=== PATIENT | male | born 1945 | race Caucasian/White ===

== ENCOUNTER 2024-08-08 21:31 | Emergency (ER) | payer MEDICARE, OTHER, SELFPAY ==
--- NOTE | 2024-08-08 | ECG_ITS ---
Test Reason : AMS Blood Pressure : */* mmHG Vent. Rate : 80 BPM Atrial Rate : 80 BPM P-R Int : 176 ms QRS Dur : 106 ms QT Int : 386 ms P-R-T Axes : 24 -41 24 degrees QTcB Int : 445 ms Sinus rhythm with occasional Premature ventricular complexes Left axis deviation Minimal voltage criteria for LVH, may be normal variant ( [place] product ) Abnormal ECG No previous ECGs available Referred By: Generic ED Physician Electronically Signed By: OLIVA CAMPO
--- NOTE | ~2024-08-08 | XR_ITS ---
CLINICAL HISTORY: trauma 1 view chest x-ray Comparison: None Findings: Mild bilateral atelectasis. No significant pleural effusion or pneumothorax. Heart size is normal. No acute fracture. IMPRESSION: Mild bilateral atelectasis. This document has been electronically signed by: Edwar Serrano MD on 08/08/2024 23:07:15
--- NOTE | ~2024-08-08 | CT_ITS ---
CLINICAL HISTORY: trauma CT head without contrast Comparison: None Findings: Scattered subcortical and periventricular hypoattenuation, likely in keeping with chronic small vessel ischemic disease. Parenchymal volume loss with compensatory prominence of the ventricles and CSF spaces. No acute territorial infarction, intracranial hemorrhage, midline shift or hydrocephalus. Mineralization in the basal ganglia noted. The visualized paranasal sinuses and mastoid air cells are normal. The orbits are within normal limits. No skull fracture. IMPRESSION: 1. No acute intracranial findings. 2. Additional findings as described. This document has been electronically signed by: Edwar Serrano MD on 08/08/2024 23:34:26
--- NOTE | ~2024-08-08 | CT_ITS ---
CLINICAL HISTORY: trauma CT cervical spine without contrast Comparison: None Findings: Exaggeration of the cervical lordosis. Multilevel spondylosis with osteophytosis, uncovertebral hypertrophy, facet arthropathy and degenerative disc disease. Emphysema. Diffuse spinal canal narrowing for example moderate at C4-C5 with severe bilateral foraminal stenoses. No acute fractures or dislocations. No cervical fluid collections or masses. Lung apices are clear. IMPRESSION: No acute findings. Additional findings as described. This document has been electronically signed by: Edwar Serrano MD on 08/08/2024 23:36:38
[2024-08-08 21:39] VITALS: BP 107/68; BP 133/81; PULSE 81; PULSE 82; RESP 16; TEMP 36.7; O2SAT 93; O2SAT 95; BMI 25.5
[2024-08-08 22:17] LABS: MANUAL DIFF FLAG NO
[2024-08-08 22:18] LABS: Basophils Absolute Auto 0.1 X10*3/uL (0.0-0.2); Basophils Percent Auto 0.6 % (0-2); Eosinophils Percent Auto 0.4 % (0-4); Hematocrit 43.6 % (42.0-52.0); Hemoglobin 15.1 g/dl (14.0-18.0); Imm Gran Abs Auto 0.05 X10*3/uL (0.00-0.03); Imm Gran Pct Auto 0.5 % (0.0-0.4); Lymphocytes Absolute Auto 2.5 X10*3/uL (1.2-4.9); Mean Corpuscular HGB Conc 34.6 g/dl (31.0-36.0); Mean Corpuscular Hemoglobin 31.7 pg (27.0-33.0); Mean Corpuscular Volume 91.4 fL (80.0-98.0); Mean Platelet Volume 11.9 fL (9.4-12.4); Monocytes Absolute Auto 0.9 X10*3/uL (0.1-1.2); Monocytes Percent Auto 8.7 % (2-11); Neutrophils Absolute Auto 7.1 x10*3/uL (2.0-8.3); Neutrophils Percent Auto 66.8 % (45-73); Platelet Count 153 X10*3/uL (160-400); Red Blood Count 4.77 X10*6/uL (4.60-5.80); Red Cell Distribution Width 13.2 % (11.0-16.0); White Blood Count 10.6 X10*3/uL (4.8-10.8)
--- NOTE | 2024-08-08 22:30 | PC.NURSE ---
patient's , daughter and son at bedside. report pt has had increased falls x couple weeks, multiple this week. after the falls pt did not report any concerns and was not evaluated. reports couple weeks ago patients psychiatrist took pt off memantine and trazodone and decreased doses of mirtazipine and risperidone as they were concerned for over medication. reports patient has had urinary incontinence and increased sleepiness today, they believe patients speech is slurred however not noted by this RN. no facial droop/focal deficits noted. Chikis FAN made aware and to bedside for eval.
[2024-08-08 22:31] LABS: Alanine Aminotransferase 8 U/L (0-40); Albumin Level 3.9 g/dL (3.5-5.0); Alkaline Phosphatase 77 U/L (39-117); Anion Gap 15 (12-20); Aspartate Amino Transferase 18 U/L (5-37); Blood Urea Nitrogen 21 mg/dL (9-16); Calcium 9.2 mg/dL (8.4-10.2); Carbon Dioxide 24 mmol/L (22-29); Chloride 108 mmol/L (96-108); Creatinine Clr Calc Pharmacy 65.7; Estimated Glomerular Filt Rate > 60; Glucose Random 115 mg/dL (60-115); Sodium 143 mmol/L (135-145); Total Protein 7.1 g/dL (6.5-8.0)
[2024-08-08 22:41] LABS: Troponin-I High Sensitivity < 2.7 ng/L (<3.5-35.0)
[2024-08-08 22:55] LABS: Influenza A PCR NEGATIVE (Negative); Influenza B PCR NEGATIVE (Negative); Resp Syncy Virus RNA Qual PCR NEGATIVE (Negative); SARS COV2 PCR INHOUSE NEGATIVE (Negative)
[2024-08-08 23:18] VITALS: BP 140/77; PULSE 84; RESP 16; TEMP 36.2; O2SAT 96
--- NOTE | 2024-08-08 23:19 | PC.NURSE ---
straight cath and rectal temp obtained per PA verbal order, pt in agreement and tolerated both well. ua sample sent to lab.
[2024-08-08 23:21] LABS: Appearance Urine Clear; Color Urine Dark Yellow; Glucose Urine UA Negative (Negative); Leukocyte Esterase Urine Negative (Negative); Nitrite Urine Negative (Negative); PH 5.5 (5.0-9.0); Specific Gravity - Urine >= 1.030 (1.005-1.025); UMIC TRIGGER UACC YES; Urine Blood Small (1+) (Negative); Urine Ketones Trace mg/dL (Negative); Urine Protein Trace mg/dL (Neg-Trace)
[2024-08-08 23:32] LABS: Bacteria Urine None Seen (None Seen); Squamous Epithelial Cell Urine 0-2 /HPF (0-2); WBC Urine 0-5 /HPF (0-5)
--- NOTE | 2024-08-09 01:39 | PC.NURSE ---
pt found sitting at the edge of the bed yelling for his . pt moved into hospital bed with bed alarm on for safety. verbal reassurance and redirectable. warm blanket given. currently sleeping. call pizarro within reach.
--- NOTE | 2024-08-09 03:59 | ED.GENADULT ---
HPI - General Adult General Chief complaint: Altered Mental Status Stated complaint: ALTERED MENTAL , DEMENTIA Time Seen by Provider: 08/08/24 22:35 Source: family Limitations: other (Dementia) History of Present Illness ED Provider: Ella Horan PA-C HPI narrative: 78-year-old male with a history of dementia, underlying gait instability using a walker to ambulate at baseline, presents with lethargy. Per the family, who are at bedside, the patient has become increasingly confused over the past 2 weeks. He is exhibiting odd behaviors such as ?thinking his 's sweater is their cat?. The patient has started to urinate and random spots in the bathroom; the shower, the trash can etc.. His appetite has decreased, it takes him a considerable amount of time to consume a meal. He has sustained multiple falls. Over the weekend, the patient has become profoundly lethargic. The family denies that the patient has been sick recently, no cough or cold symptoms, fever, nausea vomiting diarrhea. The patient has no pain related complaints in regard to his falls. He has not been medically assessed for his most recent fall; the patient fell this weekend, it was unwitnessed, unclear if he struck his head. The patient lives in his own home with his . Related Data Allergies Allergy/AdvReac Type Severity Reaction Status Date / Time typhoid injection Allergy Unknown Unknown Uncoded 08/08/24 21:42 Review of Systems Review of Systems: Unable to obtain secondary to dementia Yes all other systems are reviewed and are negative PMFSH Past Medical History Attestation statement: The following information was validated with the patient. Social History Social History Smoked in Last 30 Days: No Use of substances other than those prescribed or required for medical reasons: No Advance Directives: No Advance Directives Information Provided: No Do you have a plan to hurt others: No Plan Physical Exam ED Vital Signs: Vital Signs - 24 hr 08/08/24 21:39 08/08/24 23:18 08/09/24 06:00 Temperature 98.1 F 97.2 F 97.6 F Pulse Rate 81 84 84 Respiratory Rate 16 16 16 Blood Pressure 107/68 140/77 H 135/75 Pulse Oximetry 93 96 93 Oxygen Delivery Method Room Air Room Air Room Air BMI result Body Mass Index 25.5 Const Other: Drowsy, easily woken with verbal stimuli Orientation/consciousness: oriented to person and oriented to place Resp Effort & Inspection: normal respiratory effort Cardio Other: Normal peripheral perfusion Skin Other: Warm dry no rash Neuro Other: Overall the patient was alert and oriented, he can not give me the exact date but he knows that it is 2024 General: oriented to person, oriented to place, no focal motor deficits and CN's II-XI intact bilaterally Psych Other: Cooperative Course Course Course Narrative: 08/09/24-- 0750-- physician observation continued. Vital signs stable. Labs reviewed. Pending psychiatry eval, PT and case management Medical Decision Making Medical Decision Making [facility] Narrative: 78-year-old male with a history of dementia, underlying gait instability using a walker to ambulate at baseline, presents with lethargy. Per the family, who are at bedside, the patient has become increasingly confused over the past 2 weeks. He is exhibiting odd behaviors such as ?thinking his 's sweater is their cat?. The patient has started to urinate and random spots in the bathroom; the shower, the trash can etc.. His appetite has decreased, it takes him a considerable amount of time to consume a meal. He has sustained multiple falls. Over the weekend, the patient has become profoundly lethargic. The family denies that the patient has been sick recently, no cough or cold symptoms, fever, nausea vomiting diarrhea. The patient has no pain related complaints in regard to his falls. He has not been medically assessed for his most recent fall; the patient fell this weekend, it was unwitnessed, unclear if he struck his head. The patient lives in his own home with his . Problem: Dementia History: Per patient's family I have considered the following differential diagnoses: Viral syndrome, UTI, intracranial hemorrhage, cervical spine injury, rib fracture, pneumonia, it failure to thrive, end-stage dementia Plan: The patient's symptoms are very nonspecific, he has not had underlying illness per the family. We will be screening basic labs, viral panel, urinalysis. Given an unwitnessed fall, I will be scanning his head and neck, at 1 point the patient was complaining of chest wall pain after his most recent fall, we will obtain a chest x-ray. Given the rapid decline over the past few weeks, the patient could be approaching end-stage dementia. If his medical assessment is negative, he will be held for case management, physical therapy, and a [facility] psychiatric evaluation. The patient's family is in agreement and verbalized understanding. I have independently reviewed the following tests: Labs: No leukocytosis, not anemic, no electrolyte abnormality, viral panel negative, urine negative CT brain: Findings: Scattered subcortical and periventricular hypoattenuation, likely in keeping with chronic small vessel ischemic disease. Parenchymal volume loss with compensatory prominence of the ventricles and CSF spaces. No acute territorial infarction, intracranial hemorrhage, midline shift or hydrocephalus. Mineralization in the basal ganglia noted. The visualized paranasal sinuses and mastoid air cells are normal. The orbits are within normal limits. No skull fracture. IMPRESSION: 1. No acute intracranial findings. 2. Additional findings as described. CT cervical spine: indings: Exaggeration of the cervical lordosis. Multilevel spondylosis with osteophytosis, uncovertebral hypertrophy, facet arthropathy and degenerative disc disease. Emphysema. Diffuse spinal canal narrowing for example moderate at C4-C5 with severe bilateral foraminal stenoses. No acute fractures or dislocations. No cervical fluid collections or masses. Lung apices are clear. IMPRESSION: No acute findings. Additional findings as described. Chest x-ray:Findings: Mild bilateral atelectasis. No significant pleural effusion or pneumothorax. Heart size is normal. No acute fracture. IMPRESSION: Mild bilateral atelectasis. This document has been electronically signed by: Edwar Serrano MD on 08/08/2024 23:07:15 Lab Data 08/08/24 22:07 08/08/24 22:07 Labs: Lab Results 08/08/24 08/08/24 Range/Units 22:07 23:14 WBC 10.6 (4.8-10.8) X10*3/uL RBC 4.77 (4.60-5.80) X10*6/uL Hgb 15.1 (14.0-18.0) g/dl Hct 43.6 (42.0-52.0) % MCV 91.4 (80.0-98.0) fL MCH 31.7 (27.0-33.0) pg MCHC 34.6 (31.0-36.0) g/dl RDW 13.2 (11.0-16.0) % Plt Count 153 L (160-400) X10*3/uL MPV 11.9 (9.4-12.4) fL Immature Gran % (Auto) 0.5 H (0.0-0.4) % Neut % (Auto) 66.8 (45-73) % Lymph % (Auto) 23.0 (20-40) % [place] % (Auto) 8.7 (2-11) % Eos % (Auto) 0.4 (0-4) % Baso % (Auto) 0.6 (0-2) % Lymph # (Auto) 2.5 (1.2-4.9) X10*3/uL [place] # (Auto) 0.9 (0.1-1.2) X10*3/uL Eos # (Auto) 0.0 (0.0-0.4) X10*3/uL Baso # (Auto) 0.1 (0.0-0.2) X10*3/uL Abs Immat Gran (auto) 0.05 H (0.00-0.03) X10*3/uL Absolute Neuts (auto) 7.1 (2.0-8.3) x10*3/uL Absolute Nucleated RBC 0.000 (0.0-0.012) X10*3/uL Nucleated RBC % (auto) 0.0 (0.0-0.2) /100WBC Sodium 143 (135-145) mmol/L Potassium 4.0 (3.3-5.1) mmol/L Chloride 108 (96-108) mmol/L Carbon Dioxide 24 (22-29) mmol/L Anion Gap 15 (12-20) BUN 21 H (9-16) mg/dL Creatinine 0.91 (0.5-1.4) mg/dL Estim Creat Clear Calc 65.7 Estimated GFR > 60 Random Glucose 115 (60-115) mg/dL Calcium 9.2 (8.4-10.2) mg/dL Total Bilirubin 1.0 (0.0-1.0) mg/dL AST 18 (5-37) U/L ALT 8 (0-40) U/L Alkaline Phosphatase 77 (39-117) U/L Troponin I High Sens < 2.7 (<3.5-35.0) ng/L Total Protein 7.1 (6.5-8.0) g/dL Albumin 3.9 (3.5-5.0) g/dL Urine Color Dark Yellow Urine Appearance Clear Urine pH 5.5 (5.0-9.0) Ur Specific [place] >= 1.030 H (1.005-1.025) Urine Protein Trace (Neg-Trace) mg/dL Urine Glucose (UA) Negative (Negative) mg/dL Urine Ketones Trace (Negative) mg/dL Urine Blood Small (1+) H (Negative) Urine Nitrite Negative (Negative) Ur Leukocyte Esterase Negative (Negative) Urine RBC 11-20 H (0-2) /HPF Urine WBC 0-5 (0-5) /HPF Ur Squamous Epith Cells 0-2 (0-2) /HPF Urine Bacteria None Seen (None Seen) Hyaline Casts 11-20 (0-2) /LPF Influenza Type A (PCR) NEGATIVE (Negative) Influenza Type B (PCR) NEGATIVE (Negative) RSV RNA Qual (PCR) NEGATIVE (Negative) SARS-CoV-2 RNA (RT-PCR) NEGATIVE (Negative) Discharge Plan Discharge Clinical Impression: Dementia, Adult failure to thrive Patient Disposition: Still a Patient Print Language: Greek
[2024-08-09 06:00] VITALS: BP 135/75; PULSE 84; RESP 16; TEMP 36.4; O2SAT 93
--- NOTE | 2024-08-09 07:02 | PC.NURSE ---
pt self removed IV
--- NOTE | 2024-08-09 10:20 | MHC.CM.ED ---
Received case management consult overnight. Patient came to the ER due to AMS. Work up appears negative. Physical therapy eval and Psych consult are pending. Met with patient and son, Sunny, to update them on what is pending. Sunny has to leave for a doctor's appointment. More family will be coming to the hospital shortly. CM will meet with patient and family again. Continue to monitor for d/c needs.
[2024-08-09 10:29] VITALS: BP 114/59; PULSE 88; RESP 16; TEMP 36.7; O2SAT 93
--- NOTE | 2024-08-09 12:08 | MHC.CM.ED ---
Met with patient, Allyson and daughter Miladys in regards to discharge planning. Due to patient's AMS, spoke to Allyson and Miladys away of patient's bedside. Allyson reports patient was diagnosed with dementia from a Neurologist on [facility] in [place]. Allyson is unable to remember provider's name PCP is Dr Varela. T/W explained physical therapy eval completed and recommended rehab. Also explained psych consult is pending at this time. Patient has Medicare and but is not service connected through the [place]. Allyson does feel it is difficult to care for patient at this time. Allyson verbalizes patient has not been inpatient in any facility in the past 30 days. T/W explained referrals can be made to all 3 acute rehab facilities but they would need to have a bed and feel patient has a Medicare approved acute rehab diagnosis. Also explained, if acute rehab was unable to offer a bed, private pay short term rehab can be looked into since Medicare will not cover SNF since patient has not been inpatient in the past 30 days. It was explained cost would be $300-600 per day with 14-30 days up front. Allyson does not feel she can afford this. custodial care was discussed. Patient and Allyson do not have the funds to privately pay for LTC. Patient receives custodial from the [facility], Social security and [facility]. T/W explained [facility] intermediate care requirements in regards to assets and looking back 5 years. Allyson and Miladys do not feel patient will qualify for [facility] intermediate care. They also are not able to privately pay. T/W explained VNA can be arranged but would only see patient a couple of times a week. T/W offered to refer out to [facility] to see if patient qualifies for any additional service. Allyson stated good luck contacting anyone there. T/W explained [facility] has [facility] liaison on site. Allyson agreeable to referral. Patient, Allyson, and Miladys will wait until psych consult before final d/c plan is made. Continue to monitor for d/c needs.
--- NOTE | 2024-08-09 13:59 | PHA.MEDREC ---
Addendum entered by Robert Campo RPh 08/09/24 14:20: Med rec was reviewed by RADHA. Original Note: Pharmacy Consult ? Medication Reconciliation Pharmacy has completed the medication reconciliation. Spoke with patients at bedside who was able to confirm her husbands medications. Patients confirmed that her husbands Dr had him stop taking the Rexulti and Mirazapine a few weeks ago due to the patient not getting relief or getting better while taking them. The patient confirmed he is taking his Risperidone 0.25mg tab twice a day at 1700 and 2000. The patient did not want to tell me the last time he took his medications but his was able to tell me he has not taken any medications in about 2 days.
[2024-08-09 14:00] VITALS: BP 118/61; PULSE 79; RESP 16; TEMP 36.8; O2SAT 94
--- NOTE | 2024-08-09 17:42 | P.CNPS_ITS ---
History of Present Illness Date of Service: 08/09/2024 Chief Complaint: ALTERED MENTAL , DEMENTIA Reason for Consult: change in mental status Discussed with referring provider: Yes Sources of Information: patient interviewed, chart reviewed and crisis/core team assessment reviewed Additional Sources of Information: - HPI Narrative: Mr. Castellanos is a 78 year-old male with hx of dementia who was brought by family to [facility] ED due to increase falls, shuffling gait, lethargic, getting more confused at night and had reported that he confused her sweating with their cat. Pertinent labs completed in the ED include CBC without leukocytosis, no anemia. CMP no electrolyte abnormalities, BUN 21, Cr 0.91, creatinine clearance 65.7, UA positive for blood, RBC 11-21. Head CT atrophy and microvascular changes, mineralization of basal ganglia. Pt seen in ED with both his and daughter by bed side. Most collateral information gathered from and daughter as pt is only able to say he is here because he felt. He is not oriented to place, month, year nor situation. He often looks to for answers. Per , in the past 3 weeks, he is slow to respond. He is not completely somnolent but sitting and staring. He reports his movements are slow, with difficulty feeding himself. reports that he has had tremor for some time. does seem to have some difficulty recalling onset of some of his symptoms. Initially reporting he was dx with dementia few years ago but later reporting that she had found copy of neuropsych testing dated back to 2013. reports she has noticed that he jumps during his sleep. Family reports mask like expression on his face has been going on for a long time. initially report no recent medication changes but later when this proposal writer reviewed list of medications from PCP, it appears he recently was switched from rexulti to risperidone. Mr. Castellanos presents with mask-like expression, decreased blinking, bradykinesia, pronounced shuffling gait, cogwheel, resting tremor bilateral but more pronounced on left hand. LE tremor. Per , pt jumps in his sleep. He is not oriented to place, month, year nor situation. He vaguely says that he felt, but does not know how long he has been here or where he is. Past Psychiatric History: Inpt: none OP: Lisa Spivey, [employer] [phone] Trials: rexulti, risperidone, remeron Diagnostics Vital Signs (24Hr): Vital Signs - 24 hr 08/08/24 21:39 08/08/24 23:18 08/09/24 06:00 Temperature 98.1 F 97.2 F 97.6 F Pulse Rate 81 84 84 Respiratory Rate 16 16 16 Blood Pressure 107/68 140/77 H 135/75 Pulse Oximetry 93 96 93 Oxygen Delivery Method Room Air Room Air Room Air 08/09/24 10:29 08/09/24 14:00 Temperature 98.1 F 98.3 F Pulse Rate 88 79 Respiratory Rate 16 16 Blood Pressure 114/59 L 118/61 Pulse Oximetry 93 94 Oxygen Delivery Method Room Air Room Air BMI result Body Mass Index 25.5 Labs 08/08/24 22:07 08/08/24 22:07 Labs: Laboratory Results - last 48 hr 08/08/24 08/08/24 22:07 23:14 WBC 10.6 RBC 4.77 Hgb 15.1 Hct 43.6 MCV 91.4 MCH 31.7 MCHC 34.6 RDW 13.2 Plt Count 153 L MPV 11.9 Immature Gran % (Auto) 0.5 H Neut % (Auto) 66.8 Lymph % (Auto) 23.0 [place] % (Auto) 8.7 Eos % (Auto) 0.4 Baso % (Auto) 0.6 Lymph # (Auto) 2.5 [place] # (Auto) 0.9 Eos # (Auto) 0.0 Baso # (Auto) 0.1 Abs Immat Gran (auto) 0.05 H Absolute Neuts (auto) 7.1 Absolute Nucleated RBC 0.000 Nucleated RBC % (auto) 0.0 Sodium 143 Potassium 4.0 Chloride 108 Carbon Dioxide 24 Anion Gap 15 BUN 21 H Creatinine 0.91 Estim Creat Clear Calc 65.7 Estimated GFR > 60 Random Glucose 115 Calcium 9.2 Total Bilirubin 1.0 AST 18 ALT 8 Alkaline Phosphatase 77 Troponin I High Sens < 2.7 Total Protein 7.1 Albumin 3.9 Urine Color Dark Yellow Urine Appearance Clear Urine pH 5.5 Ur Specific [place] >= 1.030 H Urine Protein Trace Urine Glucose (UA) Negative Urine Ketones Trace Urine Blood Small (1+) H Urine Nitrite Negative Ur Leukocyte Esterase Negative Urine RBC 11-20 H Urine WBC 0-5 Ur Squamous Epith Cells 0-2 Urine Bacteria None Seen Hyaline Casts 11- Influenza Type A (PCR) NEGATIVE Influenza Type B (PCR) NEGATIVE RSV RNA Qual (PCR) NEGATIVE SARS-CoV-2 RNA (RT-PCR) NEGATIVE Mental Status Exam Mental Status Exam Narrative: Appearance: pt laying in bed, staring, limited blinking, slow to response, in NAD Behavior: limited engagement Psychomotor: retardation. bradykinesia Speech: slow response, minimally spontaneous TP: disorganized TC: not sure where he is nor why Mood: okay Affect: constricted, mask-like expression SI: denies HI: none VH/AH: not observed during interview but earlier in day daughter reports he was reporting bugs on the wall. family reports intermittent visual hallucinations of simple objects. Delusions: no overt delusional content Insight/judgment: impaired x 2. Memory/cog: alert, not oriented to place, month, year nor situation. unable to provide much information about events leading to this admission. Medications Allergies Allergies Allergy/AdvReac Type Severity Reaction Status Date / Time typhoid injection Allergy Unknown Unknown Uncoded 08/08/24 21:42 Assessment & Plan Assessment & Plan (1) Major neurocognitive disorder: Status: Acute Code(s): F03.90 - Unspecified dementia, unspecified severity, without behavioral disturbance, psychotic disturbance, mood disturbance, and anxiety (2) Parkinsonian features: Status: Acute Code(s): R29.818 - Other symptoms and signs involving the nervous system Assessment and Plan: R/O Lewy Body dementia STOP risperidone, avoid high potency antipsychotics such as haldol, olanzapine Plan Mr. Castellanos is a 78 year-old male with hx of dementia, who was brought in by family due to frequent falls, lethargy, not able to feed self, more confused. Pt presents with Parkinsonism including mask-like facial expression, cogwheel, resting bilat tremor, shuffling gait, decreased blinking and REM behavior sleep disorder. He was recently switched from rexulti to risperidone which appeared to have significantly exacerbated EPS symptoms. Shuffling gait probably causing increased falls. Increase dopaminergic blockage in setting of underlying movement disorder, seems to be causing bradykinesia and perception of lethargy although pt is not somnolent. However, I don't think his presentation is due to antipsychotic exposure, movement disorder preceded antipsychotic exposure. Moremore, I do wonder if his type of dementia is in fact LBD, and not AD. PLAN 1. recommend [facility] admission 2. d/c risperidone as it is exacerbating underlying Parkinsonism. suspect underlying undiagnosed movement disorder in family of alpha synuclein pathology. rule out if type of dementia is more LBD than AD. 3. we did do trial of sinemet 25/100 po once, and pt seem to walk with less shuffling gait. Will order neurology consult. Total time managing care of this patient today __35__ minutes. Patient educated on: diagnosis Informed Consent: understands
--- NOTE | 2024-08-09 18:28 | MHC.CM.ED ---
Addendum entered by Dawn Malik 08/09/24 18:34: Psych consult completed. Brooke Moya recommends [facility] admission. Concerns for Parkinsonism features and possible Lewy Body dementia. Will have medications adjustments. Psych will follow patient. Awaiting bed assignment. CM met with patient. Contact card given. Will hold on any referrals at this time. Given [facility] financial services pamphlet. and family aware that ED CM would not follow patient once admitted to [facility], as they have their own social organization professor. Family aware that they can call CM with questions or concerns. Original Note: CM met with family at their request. Pt is very confused and a very poor historian. PT is recommending STR. No qualifying stay. Explained to family the 3 midnight rule and possible acute rehab referrals. Discussed VNA and home PT. Discussed MH application for possible future LTC. Discussed patient's V[facility] status and [facility]. Awaiting psych consult. and daughter with patient. , Allyson, is the HCP [phone]. and daughter are understandably upset with ra[id decline in the patients mental status and abilities. Will give contact card, refer to [facility], local listing of [place] home care agencies and referral to [facility] financial services for MH assistance.. CM will follow
[2024-08-09] MEDS: Carbidopa/Levodopa 25/100 TABLET 1 TAB PO (19:22)
--- NOTE | 2024-08-09 20:20 | PC.NURSE ---
Updated conchita joy per request as pt received carbidopa approx 1 hour ago. pt was able to ambulate better with steady gait, appears to be taking complete steps rather than shuffling. bed linen changed and warm blankets given. bed alarm on. pt resting comfortably in bed now nad.
[2024-08-09 20:46] VITALS: BP 135/70; PULSE 77; RESP 14; TEMP 36.8; O2SAT 94
[2024-08-10 05:32] VITALS: BP 138/74; PULSE 70; RESP 14; TEMP 36; O2SAT 96
--- NOTE | 2024-08-10 05:55 | PC.NURSE ---
Pt slept throughout the night with no event. No apparent distress noted. Breaths even, regular, and unlabored. Monitoring ongoing.
[2024-08-10] MEDS: Donepezil HCl 10 MG TABLET PO (11:05)
[2024-08-10] MEDS: Carbidopa/Levodopa 25/100 TABLET 1 TAB PO ×2 (11:06→19:36)
[2024-08-10] MEDS: Memantine HCl 10 MG TABLET PO ×2 (11:06→20:57)
[2024-08-10 13:28] VITALS: BP 115/73; PULSE 70; RESP 16; TEMP 36.7; O2SAT 94
[2024-08-10 18:02] VITALS: BP 127/62; PULSE 89; RESP 18; TEMP 37.1; O2SAT 94
[2024-08-10] MEDS: Melatonin 3 MG TABLET 6 MG PO (20:57)
--- NOTE | 2024-08-10 21:23 | PC.NURSE ---
Patient medicated per MAR, currently resting in recliner, watching TV. Call pizarro within reach, all needs met at this time.
--- NOTE | 2024-08-11 04:41 | PC.NURSE ---
Patient assisted to a hospital bed, patient currently resting with his eyes closed, in no apparent distress, respirations even and unlabored. Call pizarro within reach. Llan of care ongoing.
[2024-08-11 06:30] VITALS: BP 129/78; PULSE 74; RESP 14; TEMP 36.9; O2SAT 98
[2024-08-11 06:40] VITALS: RESP 18
--- NOTE | 2024-08-11 06:40 | MHC.EDTECH ---
Resting quietly, eyes closed, respirations even and unlabored.
[2024-08-11] MEDS: Memantine HCl 10 MG TABLET PO (08:54)
[2024-08-11] MEDS: Donepezil HCl 10 MG TABLET PO (08:54)
--- NOTE | 2024-08-11 09:35 | MHC.CM.ED ---
Patient remains in ER overflow. Per [place], underwriting director, inpatient [facility] psych is recommended. CM consult deferred at this time.
[2024-08-11 09:49] VITALS: BP 125/66; PULSE 57; RESP 16; TEMP 36.2; O2SAT 94
--- NOTE | 2024-08-11 10:04 | PM.NEUROCN ---
History of Present Illness Data of Consult Service Date: 08/11/24 Primary Care Provider: Haider Varela MD [facility] Reason for consult: Parkinsonism 78 years old man I was asked to see for Parkinson's. He was brought to hospital with underlying diagnosis of dementia and change in mental status. Apparently he was noted to be more confused and with odd behavior. He was mistaking his sweater as a CT. When I asked him why he was here, he could not tell me. When asked, if he had any difficulty walking or balancing or doing different things such as dressing or undressing, he said no. He did not know who is doctor was. Review of Systems Review of Systems: No recent cold or flu-like illness or seizure-like episode PMFSH Social History Social History Smoked in Last 30 Days: No Use of substances other than those prescribed or required for medical reasons: No Advance Directives: Yes Advance Directives on File: Yes Advance Directives Date on File: 08/09/24 Do you have a plan to hurt others: No Plan Meds Allergies Allergy/AdvReac Type Severity Reaction Status Date / Time typhoid injection Allergy Unknown Unknown Uncoded 08/08/24 21:42 Active Medications: Current Medications Clotrimazole (Clotrimazole 1 % Cream 15 Gm Tube) 1 appl TOPICAL BID PRN PRN Reason: Flares Donepezil HCl (Donepezil Hcl 10 Mg Tablet) 10 mg PO DAILY [facility] Last Admin: 08/11/24 08:54 Dose: 10 mg Lactic Acid (Ammonium Lactate 12 % Cream 140 Gm Tube) 1 appl TOPICAL BID PRN; Protocol PRN Reason: Dry/Itchy Skin Melatonin (Melatonin 3 Mg Tablet) 6 mg PO BEDTIME [facility] Last Admin: 08/10/24 20:57 Dose: 6 mg Memantine (Memantine Hcl 10 Mg Tablet) 10 mg PO BID [facility] Last Admin: 08/11/24 08:54 Dose: 10 mg Non-Formulary Medication (Tacrolimus) 1 appl TOPICAL BID PRN PRN Reason: Rash Home Medications ?Medication ?Instructions ?Recorded ?Confirmed ?Last Taken ?Type ammonium lactate 12 % topical cream 1 appl topical BID PRN Dry/Itchy 08/09/24 08/09/24 Unknown History Skin donepezil 10 mg tablet 10 mg PO DAILY 08/09/24 08/09/24 08/07/24 History ketoconazole 2 % topical cream 1 appl topical BID PRN Flares 08/09/24 08/09/24 Unknown History memantine 10 mg tablet 10 mg PO BID 08/09/24 08/09/24 08/07/24 History risperidone 0.25 mg tablet 0.25 mg PO BID@1700,2000 08/09/24 08/09/24 08/07/24 History tacrolimus 0.1 % topical ointment 1 appl topical BID PRN Rash 08/09/24 08/09/24 Unknown History Physical Exam Vital Signs: Vital Signs: Last Vital Signs Temp 97.2 F 08/11/24 09:49 Pulse 57 08/11/24 09:49 Resp 16 08/11/24 09:49 BP 125/66 08/11/24 09:49 Pulse Ox 94 08/11/24 09:49 O2 Del Method Room Air 08/11/24 09:49 BMI result Body Mass Index 25.5 Neuro: Other: He is alert and awake with normal spontaneity of speech fluency comprehension and anxious affect. Face is symmetrical. Gaze is full. There was no obvious focal arm or leg weakness. Deep tendon reflexes are 1+. He is able to get up on his own and walk in the room. Facial expression blinking were slightly diminished. Mild cogwheeling rigidity was noted in right upper extremity. Speech was normal. Results Labs 08/08/24 22:07 08/08/24 22:07 Labs: CT scan of brain hold Moderately severe diffuse cerebral atrophy and moderately severe chronic microvascular ischemic changes were noted. Assessment and Plan (1) Major neurocognitive disorder: Status: Acute 78 years old man with clinical features of moderate cognitive dysfunction, mild parkinsonism, and behavioral symptomatology with element of psychosis. There was no metabolic or infectious etiology. His head CT revealed significant atrophy and microvascular disease. Dementia with Lewy bodies or multifactorial dementia with cerebral degeneration and vascular disease are the possibilities. Treatment is supportive and conservative. For parkinsonism, carbidopa levodopa 25/100 1 with breakfast and 1 before lunch can be tried. Procedures Date of Service Date of Service: 08/11/24
[2024-08-11 17:19] VITALS: BP 137/82; PULSE 80; RESP 16; TEMP 36.6; O2SAT 96
--- NOTE | 2024-08-11 17:20 | MHC.EDTECH ---
This pct assumed care of Patient at 1500 ,vitals taken ,Patient ate 100 % of meal and drank 360 ml fluids ,Patient family at bedside .
--- NOTE | 2024-08-11 18:07 | P.CNPS_ITS ---
History of Present Illness Date of Service: 08/11/2024 Chief Complaint: ALTERED MENTAL , DEMENTIA Discussed with referring provider: Yes Sources of Information: patient interviewed, chart reviewed and crisis/core team assessment reviewed HPI Past Psychiatric History: Inpt: none OP: Lisa Spivey APRN [phone] Trials: rexulti, risperidone, remeron Diagnostics Vital Signs (24Hr): Vital Signs - 24 hr 08/11/24 06:30 08/11/24 06:40 08/11/24 09:49 Temperature 98.5 F 97.2 F Pulse Rate 74 57 Respiratory Rate 14 18 16 Blood Pressure 129/78 125/66 Pulse Oximetry 98 94 Oxygen Delivery Method Room Air Room Air 08/11/24 17:19 Temperature 97.9 F Pulse Rate 80 Respiratory Rate 16 Blood Pressure 137/82 Pulse Oximetry 96 Oxygen Delivery Method Room Air BMI result Body Mass Index 25.5 Labs 08/08/24 22:07 08/08/24 22:07 Medications Medications Current Medications Clotrimazole (Clotrimazole 1 % Cream 15 Gm Tube) 1 appl TOPICAL BID PRN PRN Reason: Flares Donepezil HCl (Donepezil Hcl 10 Mg Tablet) 10 mg PO DAILY [facility] Last Admin: 08/11/24 08:54 Dose: 10 mg Lactic Acid (Ammonium Lactate 12 % Cream 140 Gm Tube) 1 appl TOPICAL BID PRN; Protocol PRN Reason: Dry/Itchy Skin Melatonin (Melatonin 3 Mg Tablet) 6 mg PO BEDTIME [facility] Last Admin: 08/10/24 20:57 Dose: 6 mg Memantine (Memantine Hcl 10 Mg Tablet) 10 mg PO BID [facility] Last Admin: 08/11/24 08:54 Dose: 10 mg Non-Formulary Medication (Tacrolimus) 1 appl TOPICAL BID PRN PRN Reason: Rash Allergies Allergies Allergy/AdvReac Type Severity Reaction Status Date / Time typhoid injection Allergy Unknown Unknown Uncoded 08/08/24 21:42 Assessment & Plan Total time managing care of this patient today ____ minutes.
[2024-08-11 19:26] VITALS: BP 137/82; PULSE 80; RESP 16; TEMP 36.6; O2SAT 96
--- NOTE | 2024-08-11 19:45 | MHC.CM.ED ---
CM spoke with provider and Brooke Moya [employer]. Pt will be discharged to home. Pt has new script for Parkinson's. Will F/U with Dr. Avelino Choudhary for Parkinson's vs Lewy Body Dementia or multifocal dementia. CM met with patient. PT had recommended STR. Pt does not have a qualifying stay nor funds to private pay for STR. Agreeable to [facility] with PT and OT assessments at home. CM will refer to [facility] via care port. Will complete F2F. Pt to be discharged. CM will follow up with , Allyson tomorrow regarding [facility]NA.
== END 2024-08-11 19:30 | disposition home or self-care (01) ==
PROVIDERS: Emergency Provider Emergency Medicine; PCP Internal Medicine
DX: F03.90 Unspecified dementia, unspecified severity, without behavioral disturbance, psychotic disturbance, mood disturbance, and anxiety (principal); R29.818 Other symptoms and signs involving the nervous system; R41.82 Altered mental status, unspecified; R26.89 Other abnormalities of gait and mobility; R94.31 Abnormal electrocardiogram [ECG] [EKG]; M54.2 Cervicalgia; R51.9 Headache, unspecified; R62.7 Adult failure to thrive; M54.50 Low back pain, unspecified; R19.7 Diarrhea, unspecified; Z68.25 Body mass index [BMI] 25.0-25.9, adult; Z03.818 Encounter for observation for suspected exposure to other biological agents ruled out; Z91.81 History of falling; Z79.899 Other long term (current) drug therapy
CPT/HCPCS: 0241U; 51701; 70450; 71045; 72125; 80053; 81001; 84484; 85025; 93005; 97162; 99285

== ENCOUNTER → 2024-08-08 21:52 | Outpatient (BNV) | payer MEDICARE, OTHER, SELFPAY | PROVIDERS: Emergency Provider Emergency Medicine; Visit Provider Internal Medicine | DX: I49.3 Ventricular premature depolarization (principal); R94.31 Abnormal electrocardiogram [ECG] [EKG]; R41.82 Altered mental status, unspecified | CPT/HCPCS: 93010 ==

== ENCOUNTER → 2024-08-08 22:31 | Outpatient (BNV) | payer MEDICARE, OTHER, SELFPAY | PROVIDERS: Emergency Provider Emergency Medicine; PCP Internal Medicine; Visit Provider Psychiatry & Neurology Neurology | DX: G20.C Parkinsonism, unspecified (principal); F02.82 Dementia in other diseases classified elsewhere, unspecified severity, with psychotic disturbance | CPT/HCPCS: 99283 ==

== ENCOUNTER → 2024-08-08 22:31 | Outpatient (BNV) | payer MEDICARE, OTHER, SELFPAY | PROVIDERS: Emergency Provider Emergency Medicine; PCP Internal Medicine; Visit Provider Social Worker | DX: F03.90 Unspecified dementia, unspecified severity, without behavioral disturbance, psychotic disturbance, mood disturbance, and anxiety (principal); R29.818 Other symptoms and signs involving the nervous system | CPT/HCPCS: 99285 ==

== ENCOUNTER → 2024-08-08 22:36 | Outpatient (BNV) | payer MEDICARE, SELFPAY | PROVIDERS: Emergency Provider Emergency Medicine; Visit Provider Radiology Diagnostic Radiology | DX: R41.82 Altered mental status, unspecified (principal); J98.11 Atelectasis; M47.812 Spondylosis without myelopathy or radiculopathy, cervical region; M48.02 Spinal stenosis, cervical region | CPT/HCPCS: 70450; 71045; 72125 ==

== ENCOUNTER 2024-10-06 09:55 | Outpatient (REF) | payer MEDICARE, OTHER, SELFPAY ==
--- OUTSIDE RECORDS SUMMARY | 2024-10-06 11:17 | XMS_ITS | Continuity of Care Document ---
Author Name [facility] Organization [facility] Care Team Providers Care Mold Shaker Name Role Phone [facility] Unavailable Unavailable Problems Combined list of problems from Department of Defense and Veterans Affairs facilities. It does not include entries that were removed or entered in error. Problem Status Onset Date Problem Type Date of Resolution Comments Source Impaired fasting glycemia Active 021 Condition Feb 15, 2021 Entered By: JONI LEVI Comment: treated with diet [facility] Lepe's cyst of knee Active 020 Condition Apr 19, 2020 Entered By: JONI LEVI Comment: right knee [facility] Hypercholesterolemia (SCT 36423682) Active 019 Condition October 13, 2018 Entered By: JONI LEVI Comment: treated with statin [facility] Actinic Keratosis Active Condition [facility] Adenomatous polyp of colon (SNOMED CT 241702952) Active Condition Sep 14, 2008 Entered By: CARLOS TAPIA Comment: -- tiny sessile polyp 01/16, no path availableApr 2009 Entered By: CARLOS TAPIA Comment: , repeat colonoscopy 12/21 normalDec 2014 Entered By: CARLOS TAPIA Comment: normal colonoscopy 05/28. [facility] Aneurysm, Aorta, Abdominal (ICD-9-CM 441.4) Active Condition November 07, 2011 Entered By: CARLOS TAPIA Comment: -- 3.3 cm in 10/24, stable 10/25 [facility] Chronic rhinitis (ICD-9-CM 472.0) Active Condition [facility] family history colon of colon cancer Active Condition [facility] Insomnia (SNOMED CT 594589199) Active Condition [facility] Keratoconjunctivitis Sicca Active Condition [facility] Memory impairment Active Condition De c 2014 Entered By: CARLOS TAPIA Comment: -- under evaluation by Dr. Geo Mayen [facility] Overweight (SNOMED CT 296247352) Active Condition [facility] Seborrheic Dermatitis, Unspecified (ICD-9-CM 690.10) Active Condition [facility] Diagnosis: ICD-10-CM L71.8 Other rosacea Active Diagnosis [facility] Diagnosis: ICD-10-CM E78.00 Pure hypercholesterolemia, unspecified Active Diagnosis [facility] Diagnosis: ICD-10-CM Z46.0 Encounter for fit/adjst of spectacles and contact lenses Active Diagnosis [facility] Medications Combined list of outpatient medications from Department of Defense and Veterans Affairs facilities.Medications provided include 1) outpatient medications from the last 15 months, and 2) patient-reported medications. Medication Details Route Status Patient Instructions Prescription Expires Prescription Number Last Dispense Date Ordering Provider Order Date Order Qty Source AMOXICILLIN (AMOXICILLI N), 500 MG, CAPSULE, ORAL, AUROBINDO PHARM, 500 ea. BOTTLE Cancele d [id number] : 2023 0 Pharmac y Data Transac tion Service Facilit y ATORVASTATI N CA 40MG TAB TAKE ONE TABLET BY MOUTH AT BEDTIME FOR CHOLESTE ROL ORAL DISCONT INUED BY PROVIDE R 02/24/2025 [id number] EDDIE LEVI D 2023 90 [facility] CYCLOSPORIN E 0.05% (PF) EMULSION,OP H,0.4ML INSTILL 1 DROP INTO EACH EYE TWICE DAILY FOR DRY EYE OPHTHA LMIC ACTIVE 09/12/2025 [id number] Carson ESTRADAELE 2024 60 [facility] EYELID CLEANSER,EY E SCRUB PAD USE 1 PAD TOPICALL Y ONCE DAILY BLEPHARI TIS TOPICA L ACTIVE 09/12/2025 [id number] Carson ESTRADA 2024 90 [facility] MEMANTINE HCL ER (memantine HCl), 21 MG, CAP SPR 24, ORAL, AUROBINDO PHARM, 30 ea. BOTTLE Active [id number] 2023 60 Pharmac y Data Transac tion Service Facilit y REXULTI (brexpipraz ole), 1 MG, TABLET, ORAL, [place] NYA, 30 ea. BOTTLE Cancele d [id number] : 2023 0 Pharmac y Data Transac tion Service Facilit y REXULTI (brexpipraz ole), 2 MG, TABLET, ORAL, [place] NYA, 30 ea. BOTTLE Active [id number] 2023 90 Pharmac y Data Transac tion Service Facilit y REXULTI (brexpipraz ole), 2 MG, TABLET, ORAL, [place] NYA, 30 ea. BOTTLE Active [id number] 2023 30 Pharmac y Data Transac tion Service Facilit y TRAZODONE HCL 100MG TAB TAKE TWO TABLETS BY MOUTH AT BEDTIME ORAL ACTIVE 04/23/2025 [id number] EDDIE LEVI PETER D 2023 180 [facility] TRAZODONE HCL 100MG TAB TAKE TWO TABLETS BY MOUTH AT BEDTIME ORAL DISCONT INUED 02/13/2024 [id number] 4 EDDIE LEVI PETER D 2022 180 [facility] Trazodone Hcl, 100mg, Tablet, Oral TAKE TWO TABLETS BY MOUTH AT BEDTIME 02/13/2024 [id number] JONI LEVI 2023 180 [facility] Allergies, Adverse Reactions, Alerts Combined list of allergies from Department of Defense and Veterans Affairs facilities. It does not include entries that were removed or entered in error. Substance Category Reaction Severity Reaction type Status Date Reported Comments Source TYPHOID VACC CAPSU POLYSACC Drug allergy (disorder) Edema of the upper extremity active 6 [facility] TYPHOID VACCINE Propensity to adverse reactions to drug (finding) Edema of the upper extremity active 6 [facility] Immunizations Combined list of available immunizations from the Department of Defense and Veterans Affairs facilities. 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 (MOD) Not Given COVID-19, mRNA, LNP-S, PF, 100 mcg or 50 mcg dose DoD COVID-19, mRNA, LNP-S, PF, 100 mcg or 50 mcg dose 2020 PANTUS, Modern[employer] (MOD) Not Given COVID-19, mRNA, LNP-S, PF, 100 mcg or 50 mcg dose [facility] TD (ADULT), 5 LF TETANUS TOXOID, PRESERVATIVE FREE, ADSORBED 2020 113 complet ed [facility] INFLUENZA, UNSPECIFIED FORMULATION 2020 88 complet ed [facility] influenza, high-dose, quadrivalent 2020 JASPAL, () Not Given influenza , high-dose , quadrival ent DoD COVID-19 (MODERNA), MRNA, LNP-S, PF, 100 MCG/0.5 ML DOSE 2 2020 207 complet ed [facility] COVID-19 (MODERNA), MRNA, LNP-S, PF, 100 MCG/0.5 ML DOSE 1 2020 207 complet ed [facility] ZOSTER RECOMBINANT 2 2019 187 complet ed [facility] ZOSTER RECOMBINANT 1 2019 187 complet ed [facility] Influenza vaccine, quadrivalent, adjuvanted 2019 CELETSE, () Not Given Influenza vaccine, quadrival ent, adjuvante d DoD INFLUENZA, SEASONAL, INJECTABLE, PRESERVATIVE FREE 2019 140 complet ed HISTORICA L INFORMATI ON - FROM OTHER PROVIDER, Partner: [facility]. Administe red by: ELODIA QUINTANILLA ([id number]=[phone]). Partner 2 Lot#: [id number] Mfr: SEQIRUS; Dosage: 0.5 [facility] INFLUENZA, SEASONAL, INJECTABLE 2018 141 complet ed private pharmacy [facility] INFLUENZA, TRIVALENT, ADJUVANTED 2018 168 complet ed 02, Partner: [facility]. Administe red by: ELODIA QUINTANILLA (MWF=[phone]). Partner 2 Lot#: [id number] Mfr: SEQIRUS; Dosage: 0.5 [facility] INFLUENZA, HIGH DOSE SEASONAL 2017 135 complet ed 02, Partner: [facility]. Administe red by: ELODIA QUINTANILLA (AJP=[phone]). Partner 2 Lot#: [id number] Mfr: Sanofi Pasteur; Dosage: 0.5 [facility] INFLUENZA, SEASONAL, INJECTABLE 2016 141 complet ed [facility] PNEUMOCOCCAL CONJUGATE PCV 13 2016 133 complet ed [facility] FLU,3 YRS (HISTORICAL) 2015 88 complet ed local pharmacy [facility] FLU,3 YRS (HISTORICAL) 2014 88 complet ed [facility] Influenza, high dose seasonal 2014 MISHA, () Not Given Influenza , high dose seasonal DoD FLU,3 YRS (HISTORICAL) 2013 88 complet ed local [facility] Influenza, seasonal, injectable, preservative free 2013 MEGHAN CABRAL () Not Given Influenza , seasonal, injectabl e, preservat kenneth free DoD FLU,3 YRS (HISTORICAL) 2011 88 complet ed [facility] PNEUMOCOCCAL, UNSPECIFIED FORMULATION 2011 109 complet ed [facility] FLU,3 YRS (HISTORICAL) 2010 88 complet ed [facility] DTAP, UNSPECIFIED FORMULATION 2010 107 complet ed Site: Right Deltoid [facility] FLU,3 YRS (HISTORICAL) 2009 88 complet ed [facility] Influenza, seasonal, injectable 2009 MEGHAN CABRAL [employer] (NOV) Not Given Influenza , seasonal, injectabl e DoD FLU,3 YRS (HISTORICAL) 2009 88 complet ed [facility] FLU,3 YRS (HISTORICAL) 2008 88 complet ed [facility] FLU,3 YRS (HISTORICAL) 2007 88 complet ed [employer]. [facility] FLU,3 YRS (HISTORICAL) 2006 88 complet ed [facility] FLU,3 YRS (HISTORICAL) 2003 MARCO MORELOS 88 complet ed [facility] Results Combined list of recent chemistry, hematology and other laboratory results from Department of Defense and Veterans Affairs, ranging from 15 months to all on record, depending upon the facility. Order Name Results Value Reference Range Date Interpretation Specimen Comments Source TSH THYROTROPI N [UNITS/VOL UME] IN SERUM OR PLASMA 1.45 u[IU]/mL 0.35 - 5.00 02/23 Specimen Type: SERUM No comment entered. Ordering Provider: AMARIS LEVI Report Released Date/Time: Feb 14, 2024 07:02 PM Reporting Lab: [facility] [address] [facility] [address] Performing Lab: [facility] [address] [facility] [address] [facility] LIPID PANEL FASTING CHOLESTERO L [MASS/VOLU ME] IN SERUM OR PLASMA 134 mg/dL 02/23 Specimen Type: SERUM No comment entered. Ordering Provider: AMARIS LEVI Report Released Date/Time: Feb 14, 2024 07:02 PM Reporting Lab: [facility] [place] [facility] [address] [facility] [address] Performing Lab: [facility] [place] [facility] [address] [facility] [address] [facility] [place] [facility] LIPID PANEL FASTING TRIGLYCERI DE [MASS/VOLU ME] IN SERUM OR PLASMA 77 mg/dL 0 - 150 02/23 Specimen Type: SERUM No comment entered. Ordering Provider: AMARIS LEVI Report Released Date/Time: Feb 14, 2024 07:02 PM Reporting Lab: [facility] [facility] [address] [facility] [address] Performing Lab: [facility] [place] [facility] [address] [facility] [address] [facility] LIPID PANEL FASTING CHOLESTERO L IN LDL [MASS/VOLU ME] IN SERUM OR PLASMA BY CALCULATIO N 72 mg/dL 0 - 129 02/23 Specimen Type: SERUM No comment entered. Ordering Provider: AMARIS LEVI Report Released Date/Time: Feb 14, 2024 07:02 PM Reporting Lab: [facility] [facility] [address] [facility] [address] Performing Lab: [facility] [place] [facility] [address] [facility] [address] [facility] LIPID PANEL FASTING CHOLESTERO L.TOTAL/CH OLESTEROL IN HDL [MASS RATIO] IN SERUM OR PLASMA 2.9 02/23 Specimen Type: SERUM No comment entered. Ordering Provider: AMARIS LEVI Report Released Date/Time: Feb 14, 2024 07:02 PM Reporting Lab: [facility] [address] [facility] [address] Performing Lab: [facility] [address] [facility] [address] [facility] LIPID PANEL FASTING CHOLESTERO L IN HDL [MASS/VOLU ME] IN SERUM OR PLASMA 47 mg/dL 40 - 60 02/23 Specimen Type: SERUM No comment entered. Ordering Provider: AMARIS LEVI Report Released Date/Time: Feb 14, 2024 07:02 PM Reporting Lab: [facility] [address] [facility] [address] Performing Lab: [facility] [address] [facility] [address] [facility] LIVER FUNCTION PROTEIN [MASS/VOLU ME] IN SERUM OR PLASMA 7.0 g/dL 6.0 - 8.3 02/23 Specimen Type: SERUM No comment entered. Ordering Provider: AMARIS LEVI Report Released Date/Time: Feb 14, 2024 07:02 PM Reporting Lab: [facility] [address] [address] Performing Lab: [facility] [address] [facility] [address] [facility] LIVER FUNCTION ALBUMIN [MASS/VOLU ME] IN SERUM OR PLASMA 3.9 g/dL 3.5 - 5.0 02/23 Specimen Type: SERUM No comment entered. Ordering Provider: AMARIS LEVI Report Released Date/Time: Feb 14, 2024 07:02 PM Reporting Lab: [facility] [place] [facility] [address] [facility] [address] Performing Lab: [facility] [address] [facility] [address] [facility] [place] [facility] LIVER FUNCTION ALKALINE PHOSPHATAS E [ENZYMATIC ACTIVITY/V OLUME] IN SERUM OR PLASMA 123 U/L 40 - 150 02/23 Specimen Type: SERUM No comment entered. Ordering Provider: AMARIS LEVI Report Released Date/Time: Feb 14, 2024 07:02 PM Reporting Lab: [facility] [place] [facility] [address] [facility] [address] Performing Lab: [facility] [place] [facility] [address] [facility] [address] [facility] [place] [facility] LIVER FUNCTION ASPARTATE AMINOTRANS FERASE [ENZYMATIC ACTIVITY/V OLUME] IN SERUM OR PLASMA 61 U/L 5 - 34 02/23 H Specimen Type: SERUM No comment entered. Ordering Provider: AMARIS LEVI Report Released Date/Time: Feb 14, 2024 07:02 PM Reporting Lab: [facility] [place] [address] [address] Performing Lab: [facility] [place] [address] [address] [facility] [place] [facility] LIVER FUNCTION ALANINE AMINOTRANS FERASE [ENZYMATIC ACTIVITY/V OLUME] IN SERUM OR PLASMA 109 U/L 02/23 H Specimen Type: SERUM No comment entered. Ordering Provider: AMARIS LEVI Report Released Date/Time: Feb 14, 2024 07:02 PM Reporting Lab: [facility] [place] [address] [address] Performing Lab: [facility] [place] [facility] [address] [facility] [address] [facility] [place] [facility] LIVER FUNCTION BILIRUBIN. TOTAL [MASS/VOLU ME] IN SERUM OR PLASMA 1.4 mg/dL 0.2 - 1.2 02/23 H Specimen Type: SERUM No comment entered. Ordering Provider: AMARIS LEVI Report Released Date/Time: Feb 14, 2024 07:02 PM Reporting Lab: [facility] [place] [address] [address] Performing Lab: [facility] [address] [facility] [address] [facility] LIVER FUNCTION BILIRUBIN. DIRECT [MASS/VOLU ME] IN SERUM OR PLASMA 0.5 mg/dL 0 - 0.5 02/23 Specimen Type: SERUM No comment entered. Ordering Provider: AMARIS LEVI Report Released Date/Time: Feb 14, 2024 07:02 PM Reporting Lab: [facility] [address] [facility] [address] Performing Lab: [facility] [address] [facility] [address] [facility] BASIC METABOLI C PANEL (fasting ) UREA NITROGEN [MASS/VOLU ME] IN SERUM OR PLASMA 18 mg/dL 7 - 25 02/23 Specimen Type: SERUM No comment entered. Ordering Provider: AMARIS LEVI Report Released Date/Time: Feb 14, 2024 07:02 PM Reporting Lab: [facility] [address] [facility] [address] Performing Lab: [facility] [address] [facility] [address] [facility] BASIC METABOLI C PANEL (fasting ) GLUCOSE [MASS/VOLU ME] IN SERUM OR PLASMA 117 mg/dL 65 - 100 02/23 H Specimen Type: SERUM No comment entered. Ordering Provider: AMARIS LEVI Report Released Date/Time: Feb 14, 2024 07:02 PM Reporting Lab: [facility] [address] [facility] [address] Performing Lab: [facility] [address] [facility] BASIC METABOLI C PANEL (fasting ) SODIUM [MOLES/VOL UME] IN SERUM OR PLASMA 141 mmol/L 135 - 145 02/23 Specimen Type: SERUM No comment entered. Ordering Provider: AMARIS LEVI Report Released Date/Time: Feb 14, 2024 07:02 PM Reporting Lab: [facility] [place] [facility] [address] [facility] [address] Performing Lab: [place] [facility] [place] [facility] [address] [facility] [address] [facility] [place] [facility] BASIC METABOLI C PANEL (fasting ) POTASSIUM [MOLES/VOL UME] IN SERUM OR PLASMA 3.6 mmol/L 3.5 - 5.0 02/23 Specimen Type: SERUM No comment entered. Ordering Provider: AMARIS LEVI Report Released Date/Time: Feb 14, 2024 07:02 PM Reporting Lab: [facility] [place] [facility] [address] [facility] [address] Performing Lab: [place] [facility] [address] [address] [facility] BASIC METABOLI C PANEL (fasting ) CHLORIDE [MOLES/VOL UME] IN SERUM OR PLASMA 104 mmol/L 100 - 110 02/23 Specimen Type: SERUM No comment entered. Ordering Provider: AMARIS LEVI Report Released Date/Time: Feb 14, 2024 07:02 PM Reporting Lab: [facility] [place] [address] [address] Performing Lab: [place] [facility] [address] [address] [facility] [place] [facility] BASIC METABOLI C PANEL (fasting ) CARBON DIOXIDE, TOTAL [MOLES/VOL UME] IN SERUM OR PLASMA 27 meq/L 20 - 30 02/23 Specimen Type: SERUM No comment entered. Ordering Provider: AMARIS LEVI Report Released Date/Time: Feb 14, 2024 07:02 PM Reporting Lab: [facility] [place] [address] [address] Performing Lab: [facility] [place] [address] [address] [facility] [place] [facility] BASIC METABOLI C PANEL (fasting ) CREATININE [MASS/VOLU ME] IN SERUM OR PLASMA 0.96 mg/dL 0.50 - 1.40 02/23 Specimen Type: SERUM No comment entered. Ordering Provider: AMARIS LEVI Report Released Date/Time: Feb 14, 2024 07:02 PM Reporting Lab: [facility] [address] [address] Performing Lab: [facility] [address] [address] [facility] BASIC METABOLI C PANEL (fasting ) GLOMERULAR FILTRATION RATE/1.73 SQ M.PREDICTE D [VOLUME RATE/AREA] IN SERUM, PLASMA OR BLOOD BY CREATININE -BASED FORMULA (CKD-EPI 2020) 81 mL/min 60 02/23 Specimen Type: SERUM No comment entered. Ordering Provider: AMARIS LEVI Report Released Date/Time: Feb 14, 2024 07:02 PM Reporting Lab: [address] [address] Performing Lab: [address] [address] [facility] MICROS[facility] PIC AUTOMATE D, URINE LEUKOCYTES [#/AREA] IN URINE SEDIMENT BY MICROSCOPY HIGH POWER FIELD 0-5/[HPF ] 0 - 5 02/23 Specimen Type: URINE Comment: If Glucose = >500 and Ketones are positive, please alert the Physician. Ordering Provider: AMARIS LEVI Report Released Date/Time: Feb 14, 2024 07:02 PM Reporting Lab: [facility] [address] [address] Performing Lab: [facility] [address] [address] [facility] [employer] PIC AUTOMATE D, URINE BACTERIA [#/AREA] IN URINE SEDIMENT BY MICROSCOPY HIGH POWER FIELD 1+/[HPF] 02/23 Specimen Type: URINE Comment: If Glucose = >500 and Ketones are positive, please alert the Physician. Ordering Provider: AMARIS LEVI Report Released Date/Time: Feb 14, 2024 07:02 PM Reporting Lab: [facility] [address] [place] [address] Performing Lab: [facility] [place] [facility] [address] [facility] [address] [facility] [place] [facility] MI[employer] PIC AUTOMATE D, URINE MUCUS [#/AREA] IN URINE SEDIMENT BY MICROSCOPY LOW POWER FIELD MANY/[LP F] 02/23 Specimen Type: URINE Comment: If Glucose = >500 and Ketones are positive, please alert the Physician. Ordering Provider: AMARIS LEVI Report Released Date/Time: Feb 14, 2024 07:02 PM Reporting Lab: [facility] [place] [facility] [address] [facility] [address] Performing Lab: [facility] [place] [facility] [address] [facility] [address] [place] [facility] [place] [facility] [employer] PIC AUTOMATE D, URINE ERYTHROCYT ES [#/AREA] IN URINE SEDIMENT BY MICROSCOPY HIGH POWER FIELD 0-2/[HPF ] 0 - 3 02/23 Specimen Type: URINE Comment: If Glucose = >500 and Ketones are positive, please alert the Physician. Ordering Provider: AMARIS LEVI Report Released Date/Time: Feb 14, 2024 07:02 PM Reporting Lab: [facility] [place] [facility] [address] [facility] [address] Performing Lab: [facility] [place] [facility] [address] [facility] [address] [place] [facility] [place] [facility] [place] PIC AUTOMATE D, URINE EPITHELIAL CELLS.SQUA MOUS [#/AREA] IN URINE SEDIMENT BY MICROSCOPY HIGH POWER FIELD FEW/[HPF ] 02/23 Specimen Type: URINE Comment: If Glucose = >500 and Ketones are positive, please alert the Physician. Ordering Provider: AMARIS LEVI Report Released Date/Time: Feb 14, 2024 07:02 PM Reporting Lab: [facility] [place] [facility] [address] [facility] [address] Performing Lab: [facility] [place] [facility] [address] [facility] [address] [place] [facility] [place] [facility] CBC AND DIFF (AUTO) LEUKOCYTES [#/VOLUME] IN BLOOD BY AUTOMATED COUNT 8.21 10*3/uL 4.50 - 11.00 02/23 Specimen Type: BLOOD No comment entered. Ordering Provider: AMARIS LEVI Report Released Date/Time: Feb 14, 2024 07:02 PM Reporting Lab: [facility] [place] [facility] [address] [facility] [address] Performing Lab: [facility] [place] [facility] [address] [facility] [address] [facility] [place] [facility] CBC AND DIFF (AUTO) ERYTHROCYT ES [#/VOLUME] IN BLOOD BY AUTOMATED COUNT 4.90 10*6/uL 4.23 - 5.66 02/23 Specimen Type: BLOOD No comment entered. Ordering Provider: AMARIS LEVI Report Released Date/Time: Feb 14, 2024 07:02 PM Reporting Lab: [facility] [place] [address] [address] Performing Lab: [facility] [place] [address] [address] [facility] [place] [facility] CBC AND DIFF (AUTO) HEMOGLOBIN [MASS/VOLU ME] IN BLOOD 15.4 g/dL 12.8 - 17 02/23 Specimen Type: BLOOD No comment entered. Ordering Provider: AMARIS LEVI Report Released Date/Time: Feb 14, 2024 07:02 PM Reporting Lab: [facility] [place] [address] [address] Performing Lab: [facility] [address] [address] [facility] [place] [facility] CBC AND DIFF (AUTO) HEMATOCRIT [VOLUME FRACTION] OF BLOOD BY AUTOMATED COUNT 45.9 39.2 - 50.4 02/23 Specimen Type: BLOOD No comment entered. Ordering Provider: AMARIS LEVI Report Released Date/Time: Feb 14, 2024 07:02 PM Reporting Lab: [facility] [place] [address] [address] Performing Lab: [facility] [place] [facility] [address] [facility] [address] [facility] [place] [facility] CBC AND DIFF (AUTO) MCV [ENTITIC VOLUME] BY AUTOMATED COUNT 93.7 fL 82 - 99 02/23 Specimen Type: BLOOD No comment entered. Ordering Provider: AMARIS LEVI Report Released Date/Time: Feb 14, 2024 07:02 PM Reporting Lab: [facility] [facility] [address] [facility] [address] Performing Lab: [facility] [facility] [address] [facility] [address] [facility] [place] [facility] CBC AND DIFF (AUTO) MCHC [MASS/VOLU ME] BY AUTOMATED COUNT 33.6 g/dL 30.8 - 35.1 02/23 Specimen Type: BLOOD No comment entered. Ordering Provider: AMARIS LEVI Report Released Date/Time: Feb 14, 2024 07:02 PM Reporting Lab: [facility] [place] [facility] [address] [facility] [address] Performing Lab: [facility] [place] [facility] [address] [facility] [address] [facility] [place] [facility] CBC AND DIFF (AUTO) PLATELETS [#/VOLUME] IN BLOOD BY AUTOMATED COUNT 155 10*3/uL 140 - 360 02/23 Specimen Type: BLOOD No comment entered. Ordering Provider: AMARIS LEVI Report Released Date/Time: Feb 14, 2024 07:02 PM Reporting Lab: [facility] [facility] [address] [facility] [address] Performing Lab: [facility] [facility] [address] [facility] [address] [facility] [place] [facility] CBC AND DIFF (AUTO) ERYTHROCYT E DISTRIBUTI ON WIDTH [RATIO] BY AUTOMATED COUNT 13.2 12.0 - 16.0 02/23 Specimen Type: BLOOD No comment entered. Ordering Provider: AMARIS LEVI Report Released Date/Time: Feb 14, 2024 07:02 PM Reporting Lab: [facility] [place] [facility] [address] [facility] [address] Performing Lab: [facility] [place] [facility] [address] [facility] [address] [facility] [place] [facility] CBC AND DIFF (AUTO) MONOCYTES [#/VOLUME] IN BLOOD BY AUTOMATED COUNT 0.85 10*3/uL 0.30 - 1.10 02/23 Specimen Type: BLOOD No comment entered. Ordering Provider: AMARIS LEVI Report Released Date/Time: Feb 14, 2024 07:02 PM Reporting Lab: [facility] [facility] [address] [facility] [address] Performing Lab: [facility] [facility] [address] [facility] [address] [facility] [facility] CBC AND DIFF (AUTO) MCH [ENTITIC MASS] BY AUTOMATED COUNT 31.4 pg 26.2 - 32.6 02/23 Specimen Type: BLOOD No comment entered. Ordering Provider: AMARIS LEVI Report Released Date/Time: Feb 14, 2024 07:02 PM Reporting Lab: [facility] [address] [address] Performing Lab: [facility] [place] [facility] [address] [facility] [address] [facility] [place] [facility] CBC AND DIFF (AUTO) NEUTROPHIL S/100 LEUKOCYTES IN BLOOD BY AUTOMATED COUNT 58.3 43.7 - 75.8 02/23 Specimen Type: BLOOD No comment entered. Ordering Provider: AMARIS LEVI Report Released Date/Time: Feb 14, 2024 07:02 PM Reporting Lab: [facility] [place] [facility] [address] [facility] [address] Performing Lab: [facility] [address] [address] [facility] [place] [facility] CBC AND DIFF (AUTO) LYMPHOCYTE S/100 LEUKOCYTES IN BLOOD BY AUTOMATED COUNT 30.0 14.0 - 42.3 02/23 Specimen Type: BLOOD No comment entered. Ordering Provider: AMARIS LEVI Report Released Date/Time: Feb 14, 2024 07:02 PM Reporting Lab: [facility] [place] [facility] [address] [facility] [address] Performing Lab: [facility] [place] [facility] [address] [facility] [address] [facility] [place] [facility] CBC AND DIFF (AUTO) MONOCYTES/ 100 LEUKOCYTES IN BLOOD BY AUTOMATED COUNT 10.4 5.1 - 13.7 02/23 Specimen Type: BLOOD No comment entered. Ordering Provider: AMARIS LEVI Report Released Date/Time: Feb 14, 2024 07:02 PM Reporting Lab: [facility] [place] [facility] [address] [facility] [address] Performing Lab: [facility] [place] [facility] [address] [facility] [address] [facility] [place] [facility] CBC AND DIFF (AUTO) EOSINOPHIL S/100 LEUKOCYTES IN BLOOD BY AUTOMATED COUNT 0.0 0.4 - 6.8 02/23 L Specimen Type: BLOOD No comment entered. Ordering Provider: AMARIS LEVI Report Released Date/Time: Feb 14, 2024 07:02 PM Reporting Lab: [facility] [place] [facility] [address] [facility] [address] Performing Lab: [facility] [place] [address] [address] [facility] [place] [facility] CBC AND DIFF (AUTO) BASOPHILS/ 100 LEUKOCYTES IN BLOOD BY AUTOMATED COUNT 0.7 0.1 - 2.0 02/23 Specimen Type: BLOOD No comment entered. Ordering Provider: AMARIS LEVI Report Released Date/Time: Feb 14, 2024 07:02 PM Reporting Lab: [facility] [place] [facility] [address] [facility] [address] Performing Lab: [facility] [place] [facility] [address] [place] [address] [facility] [place] [facility] CBC AND DIFF (AUTO) NEUTROPHIL S [#/VOLUME] IN BLOOD BY AUTOMATED COUNT 4.79 10*3/uL 2.20 - 7.60 02/23 Specimen Type: BLOOD No comment entered. Ordering Provider: AMARIS LEVI Report Released Date/Time: Feb 14, 2024 07:02 PM Reporting Lab: [facility] [facility] [address] [facility] [address] Performing Lab: [facility] [place] [address] [address] [facility] [facility] CBC AND DIFF (AUTO) LYMPHOCYTE S [#/VOLUME] IN BLOOD BY AUTOMATED COUNT 2.46 10*3/uL 1.00 - 3.20 02/23 Specimen Type: BLOOD No comment entered. Ordering Provider: AMARIS LEVI Report Released Date/Time: Feb 14, 2024 07:02 PM Reporting Lab: [facility] [address] [address] Performing Lab: [facility] [address] [address] [facility] [place] [facility] CBC AND DIFF (AUTO) EOSINOPHIL S [#/VOLUME] IN BLOOD BY AUTOMATED COUNT 0.00 10*3/uL 0.03 - 0.44 02/23 L Specimen Type: BLOOD No comment entered. Ordering Provider: AMARIS LEVI Report Released Date/Time: Feb 14, 2024 07:02 PM Reporting Lab: [facility] [address] [address] Performing Lab[place] [facility] [address] [address] [facility] [place] [facility] CBC AND DIFF (AUTO) BASOPHILS [#/VOLUME] IN BLOOD BY AUTOMATED COUNT 0.06 10*3/uL 0.01 - 0.13 02/23 Specimen Type: BLOOD No comment entered. Ordering Provider: AMARIS LEVI Report Released Date/Time: Feb 14, 2024 07:02 PM Reporting Lab: [facility] [address] [address] Performing Lab: [facility] [address] [address] [facility] [place] [facility] CBC AND DIFF (AUTO) IMMATURE GRANULOCYT ES/100 LEUKOCYTES IN BLOOD BY AUTOMATED COUNT 0.6 0.0 - 0.7 02/23 Specimen Type: BLOOD No comment entered. Ordering Provider: AMARIS LEVI Report Released Date/Time: Feb 14, 2024 07:02 PM Reporting Lab: [facility] [place] [address] [address] Performing Lab: [facility] [place] [address] [address] [place] [facility] [place] [facility] CBC AND DIFF (AUTO) IMMATURE GRANULOCYT ES [#/VOLUME] IN BLOOD 0.05 10*3/uL 0.00 - 0.06 02/23 Specimen Type: BLOOD No comment entered. Ordering Provider: AMARIS LEVI Report Released Date/Time: Feb 14, 2024 07:02 PM Reporting Lab: [facility] [address] [address] Performing Lab: [facility] [address] [address] [place] [facility] [place] [facility] CBC AND DIFF (AUTO) NRBC % 0.0 0.0 - 0.0 02/23 Specimen Type: BLOOD No comment entered. Ordering Provider: AMARIS LEVI Report Released Date/Time: Feb 14, 2024 07:02 PM Reporting Lab: [facility] [address] [address] Performing Lab: [facility] [address] [address] [place] [facility] [place] [facility] CBC AND DIFF (AUTO) NRBC, ABS 0.00 10*3/uL 0.00 - 0.00 02/23 Specimen Type: BLOOD No comment entered. Ordering Provider: AMARIS LEVI Report Released Date/Time: Feb 14, 2024 07:02 PM Reporting Lab: [facility] [place] [address] [address] Performing Lab: [place] [facility] [place] [facility] [address] [facility] [address] [facility] [place] [facility] URINALYS IS CLEAN CATCH COLOR OF URINE Yellow 02/23 Specimen Type: URINE Comment: If Glucose = >500 and Ketones are positive, please alert the Physician. Ordering Provider: AMARIS LEVI Report Released Date/Time: Feb 14, 2024 07:02 PM Reporting Lab: [place] [facility] [place] [facility] [address] [facility] [address] Performing Lab: [place] [facility] [place] [facility] [address] [facility] [address] [facility] [place] [facility] URINALYS IS CLEAN CATCH APPEARANCE OF URINE Clear 02/23 Specimen Type: URINE Comment: If Glucose = >500 and Ketones are positive, please alert the Physician. Ordering Provider: AMARIS LEVI Report Released Date/Time: Feb 14, 2024 07:02 PM Reporting Lab: [place] [facility] [place] [facility] [address] [facility] [address] Performing Lab: [place] [facility] [place] [facility] [address] [facility] [address] [facility] [place] [facility] URINALYS IS CLEAN CATCH GLUCOSE [MASS/VOLU ME] IN URINE Normalmg /dL 02/23 Specimen Type: URINE Comment: If Glucose = >500 and Ketones are positive, please alert the Physician. Ordering Provider: AMARIS LEVI Report Released Date/Time: Feb 14, 2024 07:02 PM Reporting Lab: [place] [facility] [place] [facility] [address] [facility] [address] Performing Lab: [facility] [place] [address] [address] [facility] [facility] URINALYS IS CLEAN CATCH KETONES [MASS/VOLU ME] IN URINE BY TEST STRIP NEGATIVE mg/dL 02/23 Specimen Type: URINE Comment: If Glucose = >500 and Ketones are positive, please alert the Physician. Ordering Provider: AMARIS LEVI Report Released Date/Time: Feb 14, 2024 07:02 PM Reporting Lab: [facility] [place] [facility] [address] [facility] [address] Performing Lab: [facility] [place] [facility] [address] [facility] [address] [facility] [place] [facility] URINALYS IS CLEAN CATCH ERYTHROCYT ES [PRESENCE] IN URINE SEDIMENT BY LIGHT MICROSCOPY NEGATIVE mg/dL 02/23 Specimen Type: URINE Comment: If Glucose = >500 and Ketones are positive, please alert the Physician. Ordering Provider: AMARIS LEVI Report Released Date/Time: Feb 14, 2024 07:02 PM Reporting Lab: [facility] [place] [facility] [address] [facility] [address] Performing Lab: [facility] [place] [facility] [address] [facility] [address] [facility] [facility] URINALYS IS CLEAN CATCH PROTEIN [MASS/VOLU ME] IN URINE BY TEST STRIP 30 mg/dL 02/23 Specimen Type: URINE Comment: If Glucose = >500 and Ketones are positive, please alert the Physician. Ordering Provider: AMARIS LEVI Report Released Date/Time: Feb 14, 2024 07:02 PM Reporting Lab: [facility] [place] [facility] [address] [facility] [address] Performing Lab: [facility] [place] [facility] [address] [facility] [address] [facility] [place] [facility] URINALYS IS CLEAN CATCH NITRITE [PRESENCE] IN URINE NEGATIVE mg/dL 02/23 Specimen Type: URINE Comment: If Glucose = >500 and Ketones are positive, please alert the Physician. Ordering Provider: AMARIS LEVI Report Released Date/Time: Feb 14, 2024 07:02 PM Reporting Lab: [facility] [place] [facility] [address] [facility] [address] Performing Lab: [facility] [place] [facility] [address] [facility] [address] [facility] [place] [facility] URINALYS IS CLEAN CATCH BILIRUBIN. TOTAL [PRESENCE] IN URINE NEGATIVE mg/dL 02/23 Specimen Type: URINE Comment: If Glucose = >500 and Ketones are positive, please alert the Physician. Ordering Provider: AMARIS LEVI Report Released Date/Time: Feb 14, 2024 07:02 PM Reporting Lab: [facility] [place] [address] Performing Lab: [facility] [address] [facility] [place] [facility] URINALYS IS CLEAN CATCH SPECIFIC GRAVITY OF URINE BY REFRACTOME TRY 1.033 1.016 - 1.022 02/23 H Specimen Type: URINE Comment: If Glucose = >500 and Ketones are positive, please alert the Physician. Ordering Provider: AMARIS LEVI Report Released Date/Time: Feb 14, 2024 07:02 PM Reporting Lab: [facility] [place] [address] Performing Lab: [facility] [address] [facility] URINALYS IS CLEAN CATCH PH OF URINE BY TEST STRIP 6.0 5.0 - 9.0 02/23 Specimen Type: URINE Comment: If Glucose = >500 and Ketones are positive, please alert the Physician. Ordering Provider: AMARIS LEVI Report Released Date/Time: Feb 14, 2024 07:02 PM Reporting Lab: [facility] [place] [address] [address] Performing Lab: [facility] [place] [address] [facility] [place] [facility] URINALYS IS CLEAN CATCH UROBILINOG EN [MASS/VOLU ME] IN URINE BY TEST STRIP Normalmg /dL <2.0 - 2.0 02/23 Specimen Type: URINE Comment: If Glucose = >500 and Ketones are positive, please alert the Physician. Ordering Provider: AMARIS LEVI Report Released Date/Time: Feb 14, 2024 07:02 PM Reporting Lab: [facility] [address] [facility] [address] Performing Lab: [facility] [address] [facility] [address] [facility] URINALYS IS CLEAN CATCH LEUKOCYTE ESTERASE [PRESENCE] IN URINE BY TEST STRIP NEGATIVE 02/23 Specimen Type: URINE Comment: If Glucose = >500 and Ketones are positive, please alert the Physician. Ordering Provider: AMARIS LEVI Report Released Date/Time: Feb 14, 2024 07:02 PM Reporting Lab: [facility] [address] [facility] [address] Performing Lab: [facility]ITALTRN [address] [address] [facility] BASIC METABOLI C PANEL (fasting ) UREA NITROGEN [MASS/VOLU ME] IN SERUM OR PLASMA 20 mg/dL 7 - 25 02/18 Specimen Type: SERUM No comment entered. Ordering Provider: AMARIS LEVI Report Released Date/Time: Feb 14, 2023 03:26 PM Reporting Lab: [facility] [address] Performing Lab: [facility] [address] [facility] BASIC METABOLI C PANEL (fasting ) GLUCOSE [MASS/VOLU ME] IN SERUM OR PLASMA 114 mg/dL 65 - 100 02/18 H Specimen Type: SERUM No comment entered. Ordering Provider: AMARIS LEVI Report Released Date/Time: Feb 14, 2023 03:26 PM Reporting Lab: [facility]ITALTR[facility]USE[facility] [address] [facility] [address] Performing Lab: [facility]STITUTE[facility] [address] [facility] BASIC METABOLI C PANEL (fasting ) SODIUM [MOLES/VOL UME] IN SERUM OR PLASMA 141 mmol/L 135 - 145 02/18 Specimen Type: SERUM No comment entered. Ordering Provider: AMARIS LEVI Report Released Date/Time: Feb 14, 2023 03:26 PM Reporting Lab: [facility] [facility] [address] [facility] [address] Performing Lab: [facility] [facility] [address] [facility] [address] [place] [facility] [place] [facility] BASIC METABOLI C PANEL (fasting ) POTASSIUM [MOLES/VOL UME] IN SERUM OR PLASMA 3.9 mmol/L 3.5 - 5.0 02/18 Specimen Type: SERUM No comment entered. Ordering Provider: AMARIS LEVI Report Released Date/Time: Feb 14, 2023 03:26 PM Reporting Lab: [facility] [facility] [address] [facility] [address] Performing Lab: [facility] [address] [address] [facility] [facility] BASIC METABOLI C PANEL (fasting ) CHLORIDE [MOLES/VOL UME] IN SERUM OR PLASMA 105 mmol/L 100 - 110 02/18 Specimen Type: SERUM No comment entered. Ordering Provider: AMARIS LEVI Report Released Date/Time: Feb 14, 2023 03:26 PM Reporting Lab: [facility] [facility] [address] [facility] [address] Performing Lab: [facility] [place] [facility] [address] [facility] [address] [facility] [facility] BASIC METABOLI C PANEL (fasting ) CARBON DIOXIDE, TOTAL [MOLES/VOL UME] IN SERUM OR PLASMA 26 meq/L 20 - 30 02/18 Specimen Type: SERUM No comment entered. Ordering Provider: AMARIS LEVI Report Released Date/Time: Feb 14, 2023 03:26 PM Reporting Lab: [facility] [facility] [address] [facility] [address] Performing Lab: [facility] [address] [address] [facility] [facility] BASIC METABOLI C PANEL (fasting ) CREATININE [MASS/VOLU ME] IN SERUM OR PLASMA 0.99 mg/dL 0.50 - 1.40 02/18 Specimen Type: SERUM No comment entered. Ordering Provider: AMARIS LEVI Report Released Date/Time: Feb 14, 2023 03:26 PM Reporting Lab: [place] [facility] [place] [facility] [address] [facility] [address] Performing Lab: [facility] [facility] [address] [facility] [address] [facility] [place] [facility] BASIC METABOLI C PANEL (fasting ) GLOMERULAR FILTRATION RATE/1.73 SQ M.PREDICTE D [VOLUME RATE/AREA] IN SERUM, PLASMA OR BLOOD BY CREATININE -BASED FORMULA (CKD-EPI 2020) 79 mL/min 60 02/18 Specimen Type: SERUM No comment entered. Ordering Provider: AMARIS LEVI Report Released Date/Time: Feb 14, 2023 03:26 PM Reporting Lab: [facility] [facility] [address] [facility] [address] Performing Lab: [facility] [facility] [address] [facility] [address] [facility] LIVER FUNCTION PROTEIN [MASS/VOLU ME] IN SERUM OR PLASMA 6.6 g/dL 6.0 - 8.3 02/18 Specimen Type: SERUM No comment entered. Ordering Provider: AMARIS LEVI Report Released Date/Time: Feb 14, 2023 03:26 PM Reporting Lab: [facility] [facility] [address] [facility] [address] Performing Lab: [facility] [facility] [address] [facility] [address] [facility] [place] [facility] LIVER FUNCTION ALBUMIN [MASS/VOLU ME] IN SERUM OR PLASMA 3.9 g/dL 3.5 - 5.0 02/18 Specimen Type: SERUM No comment entered. Ordering Provider: AMARIS LEVI Report Released Date/Time: Feb 14, 2023 03:26 PM Reporting Lab: [facility] [place] [facility] [address] [facility] [address] Performing Lab: [place] [facility] [place] [facility] [address] [facility] [address] [facility] [place] [facility] LIVER FUNCTION ALKALINE PHOSPHATAS E [ENZYMATIC ACTIVITY/V OLUME] IN SERUM OR PLASMA 78 U/L 40 - 150 02/18 Specimen Type: SERUM No comment entered. Ordering Provider: AMARIS LEVI Report Released Date/Time: Feb 14, 2023 03:26 PM Reporting Lab: [facility] [place] [facility] [address] [facility] [address] Performing Lab: [facility] [place] [facility] [address] [address] [place] [facility] [place] [facility] LIVER FUNCTION ASPARTATE AMINOTRANS FERASE [ENZYMATIC ACTIVITY/V OLUME] IN SERUM OR PLASMA 19 U/L 5 - 34 02/18 Specimen Type: SERUM No comment entered. Ordering Provider: AMARIS LEVI Report Released Date/Time: Feb 14, 2023 03:26 PM Reporting Lab: [facility] [place] [facility] [address] [facility] [address] Performing Lab: [facility] [place] [facility] [address] [facility] [address] [facility] [place] [facility] LIVER FUNCTION ALANINE AMINOTRANS FERASE [ENZYMATIC ACTIVITY/V OLUME] IN SERUM OR PLASMA 20 U/L 02/18 Specimen Type: SERUM No comment entered. Ordering Provider: AMARIS LEVI Report Released Date/Time: Feb 14, 2023 03:26 PM Reporting Lab: [facility] [place] [facility] [address] [facility] [address] Performing Lab: [facility] [place] [facility] [address] [facility] [address] [facility] [place] [facility] LIVER FUNCTION BILIRUBIN. TOTAL [MASS/VOLU ME] IN SERUM OR PLASMA 0.9 mg/dL 0.2 - 1.2 02/18 Specimen Type: SERUM No comment entered. Ordering Provider: AMARIS LEVI Report Released Date/Time: Feb 14, 2023 03:26 PM Reporting Lab: [facility] [place] [facility] [address] [facility] [address] Performing Lab: [facility] [facility] [address] [facility] [address] [facility] TSH THYROTROPI N [UNITS/VOL UME] IN SERUM OR PLASMA 2.43 u[IU]/mL 0.35 - 5.00 02/18 Specimen Type: SERUM No comment entered. Ordering Provider: AMARIS LEVI Report Released Date/Time: Feb 14, 2023 03:26 PM Reporting Lab: [facility] [address] [facility] [address] Performing Lab: [facility] [address] [facility] [address] [facility] Vital Signs Combined list of inpatient and outpatient Vital Signs from Department of Defense and Veterans Affairs, ranging from 12 months to all on record, depending upon the facility. Vital Sign Value Date Comments Source SYSTOLIC BLOOD PRESSURE 145 02/24/20 24 08:49:14 [facility] DIASTOLIC BLOOD PRESSURE 78 024 08:49:14 [facility] PULSE OXIMETRY 94 02/24/2024 08:49:14 [facility] WEIGHT 165 02/24/2024 08:49:14 [facility] BMI 26 kg/m2 02/24/2024 08:49:14 [facility] PAIN 0 02/24/2024 08:49:14 [facility] HEIGHT 67 02/24/2024 08:49:14 [facility] TEMPERATURE 98.1 02/24/2024 08:49:14 [facility] PULSE 80 02/24/2024 08:49:14 [facility] RESPIRATION 20 02/24/2024 08:49:14 [facility] Encounters Combined list of: 1) Encounters from Department of Veterans Affairs facilities going backup to the last 18 months, not all [facility] inpatient encounters are included; 2) Encounters from the Department of Defense facilities going backup to 280 months. Location Location Details Encounter Type Encounter Number Reason For Visit Attending Provider ADM Date DC Date Status Disposition Source [facility] EYE EXAM&TX ESTAB PT 1/>VST [id number] Diagnos is: ICD-10- CM L71.8 Other rosacea CATHI ESTRADA ANNE 04/21 [facility] FIT SPECTACLES BIFOCAL [id number] Diagnos is: ICD-10- CM Z46.0 Encount er for fit/adj st of spectac les and contact lenses CAHTI ESTRADA ANNE 04/23 [facility] Outpatient Encounter [id number] 12/24 [facility] Out[facility]counter [id number] 1.02/13 [facility] Out[facility]counter [id number] 1[facility]02/17 [facility] OFFICE O/P EST LOW 20 MIN [id number] 1. 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, unspeci FATEMEH Sue RD 02/23 [facility] Out[facility] Encounter [id number] 03/03 [facility]counter [id number] 03/03 [facility] Outpatient Encounter [id number] 03/17 [facility] Outpatient Encounter [id number] 04/21 [facility] Outpatient Encounter [id number] 04/22 [facility] OFFICE O/P EST MOD 30 MIN [id number] Diagnos is: ICD-10- CM L71.8 Other rosaCATHI Ceja 09/08 [facility] Outpatient Encounter [id number] 09/09 [facility] Social History Combined list of available smoking, tobacco, and other social history from Department of Defense and Veterans Affairs facilities. Social History Type Response Date Comment Source Tobacco smoking status [facility] VA-TOBACCO FORMER USER 02/24/2024 [facility] History of tobacco use VA-TOBACCO QUIT 5 TO < 15 YRS 02/24/2024 [facility] History of tobacco use VA-TOBACCO FORMER USER 02/23/2023 [facility] History of tobacco use VA-TOBACCO FORMER USER 02/21/2022 [facility] History of tobacco use VA-TOBACCO FORMER USER 02/15/2021 [facility] History of tobacco use VA-TOBACCO QUIT 5 TO < 15 YRS 02/14/2020 [facility] History of tobacco use VA-TOBACCO NEVER USED 08/09/2018 [facility] History of tobacco use QUIT TOBACCO USE > 7 YEARS AGO 10/07/2017 pt quit 7 yrs ago [facility] History of tobacco use QUIT TOBACCO USE > 7 YEARS AGO 09/24/2016 [facility] History of tobacco use QUIT TOBACCO USE > 7 YEARS AGO 05/22/2015 quit 7-8 yrs ago [facility] History of tobacco use HISTORY OF SMOKING 09/12/2004 Smoke free since 1997 [facility] History of tobacco use HISTORY OF SMOKING 09/13/2003 [facility] History of tobacco use HISTORY OF SMOKING 09/13/2002 [facility] History of tobacco use HISTORY OF SMOKING 09/15/2001 [facility] History of tobacco use HISTORY OF SMOKING 09/17/2000 [facility] This section is an empty social history section. [facility] Plan of Care List of future care activities from Department of Veterans Affairs facilities. Additional future care activities may be listed in the Assessment and Plan section. Date/Time Care Activity Care Activity Detail Facili ty 02/24/2025 AMBULATORY - MEDICINE AMBULATORY - MEDICI [facility]
--- OUTSIDE RECORDS SUMMARY | 2024-10-06 11:17 | XMS_ITS | Encounter Summary ---
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 Role Phone SYED SLAUGHTER Primary Care Provider Unavailabl e Insurance Providers: All historical and current [...] PART A Sep 14, 2011 PART A [id number] [phone] ROSIBEL MEHTA ERT PATIENT MEDICARE (WNR) MEDICARE (M) PART B Sep 14, 2011 PART B [id number] ROSIBEL MEHTA ERT PATIENT MEDICARE (WNR) MEDICARE (M) PART A Sep 14, 2011 PART A [id number] JANINE,ROSIBEL ERT PATIENT MEDICARE (WNR) MEDICARE (M) PART B Sep 14, 2011 PART B [id number] [phone] ROSIBEL MEHTA ERT PATIENT FOR LIFE TFL* Sep 14, 2011 [id number] ROSIBEL MEHTA ERT PATIENT ZZTRICARE (WNR) STAND PETER Dec 13, 1996 GONZALES GONZALES [id number] ROSIBEL MEHTA ERT PATIENT Selected Encounter This section includes the information on record at [place] for the Encounter. Date/Time Encounter Type Encounter Description Reason Provider Source Feb 24, 2024 09:00 AM OFFICE O/P EST LOW 20 MIN PRIMARY CARE/MEDICINE ICD-10-CM E78.00 Pure hypercholesterole yoni, unspecified SYED SLAUGHTER IHCristina Encounter Template Text not used by [place] Assessments - Encounter Diagnoses This section includes the primary and secondary diagnoses documented for the Encounter. Date/Time Primary/Secondary Diagnosis Diagnosis Name Provider Source Feb 24, 2024 09:20 AM PRIMARY Pure hypercholesterole yoni, unspecified SYED SLAUGHTER [facility] Plan of Treatment: Future Appointments (+ 6 months) and Future Tests (+/- 45 days) The Plan of Treatment section includes future care activities for the patient from [facility] [place] [facility] This section includes future appointments and future orders which are active, pending or scheduled. Future Appointments This section includes appointments that were scheduled to occur 6 months from the date of the Encounter, up to a maximum of 20 appointments. The data comes from all [place] treatment facilities. Appointment Date/Time Appointment Type Appointme nt Facility Name Mar 17, 2024 09:00 AM AMBULATORY - NONE [facility] Active, Pending, and Scheduled Orders This section includes a listing of several types of active, pending, and scheduled orders, including clinic medications orders, diagnostic test orders, procedure orders and consult orders; where the start date of the order is 45 days before the date of the Encounter or 45 days after the date of theEncounter. The data comes from all [facility]. Test Date/Time Test Type Test Details Facility Name Mar 29, 2024 12:00 AM Laboratory - Chemistry Order MITOCHONDRIAL ANTIBODY (QU) BLOOD (SST-SERUM) [facility] Mar 29, 2024 12:00 AM Laboratory - Chemistry Order ALPHA-FETOPROTEIN BLOOD (SST-SERUM) [facility] Mar 29, 2024 12:00 AM Laboratory - Chemistry Order ACTIN (SMOOTH MUSCLE) ANTIBODY (IgG) BLOOD (SST-SERUM) [facility] Mar 29, 2024 12:00 AM Laboratory - Chemistry Order LIVER FUNCTION BLOOD (SST-SERUM) [facility] Mar 29, 2024 12:00 AM Laboratory - Chemistry Order HEPATITIS C ANTIBODY (HCV)-ARC BLOOD (MARBLED-TOP SERUM) [facility] Mar 29, 2024 12:00 AM Laboratory - Chemistry Order HEPATITIS B SURFACE ANTIGEN (HBsAg)- BLOOD (SST-SERUM) [facility] Mar 29, 2024 12:00 AM Laboratory - Chemistry Order HEPATITIS B SURFACE ANTIBODY (HBsAb)- BLOOD (SST-SERUM) [facility] Mar 29, 2024 12:00 AM Laboratory - Chemistry Order HEPATITIS B CORE (Total) Ab BLOOD (SST-SERUM) [facility] Mar 29, 2024 12:00 AM Laboratory - Chemistry Order IRON & TIBC PANEL BLOOD (SST-SERUM) [facility] Mar 29, 2024 12:00 AM Laboratory - Chemistry Order FERRITIN BLOOD (SST-SERUM) [facility] Lab Results: +/- 30 days of the encounter This section includes the Chemistry and Hematology Lab Results on record with [place] for the patient. Radiology Reports and Pathology Reports are provided separately, in subsequent sections. Lab Results This section contains the Chemistry/Hematology Results that were resulted 30 days before or 30 daysafter the date of the Encounter. Date/Time Source Result Type Result - Unit Interpretation Reference Range Specimen Type Comment Feb 24, 2024 09:29 AM [facility] TSH SERUM Specimen Type: SERUM No comment entered. Ordering Provider: SYED SLAUGHTER Report Released Date/Time: Feb 14, 2024 07:02 PM Reporting Lab: [address] [address] Performing Lab: [address] [address] TSH 1.45 u[IU]/mL 0.35-5.00 Feb 24, 2024 09:29 AM [facility] LIPID PANEL FASTING SERUM Specimen Type: SERU M No comment entered. Ordering Provider: SYED SLAUGHTER Report Released Date/Time: Feb 14, 2024 07:02 PM Reporting Lab: [facility] [address] [facility] [address] Performing Lab: [address] [address] CHOLESTEROL 134 mg/dL TRIGLYCERIDE 77 mg/dL 0-150 LDL calculated 72 mg/dL 0-129 CHOL/HDL 2.9 HDL CHOLESTEROL 47 mg/dL 40-60 Feb 24, 2024 09:29 AM [facility] LIVER FUNCTION SERUM Specimen Type: SERUM No comment entered. Ordering Provider: SYED SLAUGHTER Report Released Date/Time: Feb 14, 2024 07:02 PM Reporting Lab: [address] [address] Performing Lab: [address] [address] PROTEIN,TOTAL 7.0 g/dL 6.0-8.3 ALBUMIN 3.9 g/dL 3.5-5.0 ALKALINE PHOSPHATASE 123 U/L 40-150 AST 61 U/L H 5-34 ALT 109 U/L H BILIRUBIN, TOTAL 1.4 mg/dL H 0.2-1.2 BILIRUBIN, DIRECT 0.5 mg/dL 0-0.5 Feb 24, 2024 09:29 AM [facility] BASIC METABOLIC PANEL (fasting) SERUM Specime n Type: SERUM No comment entered. Ordering Provider: SYED SLAUGHTER Report Released Date/Time: Feb 14, 2024 07:02 PM Reporting Lab: [address] [address] Performing Lab: [address] [address] UREA NITROGEN 18 mg/dL 7-25 GLUCOSE 117 mg/dL H 65-100 SODIUM 141 mmol/L 135-145 POTASSIUM 3.6 mmol/L 3.5-5.0 CHLORIDE 104 mmol/L 100-110 CO2 27 meq/L 20-30 CREATININE, Serum 0.96 mg/dL 0.50-1.40 eGFR(CKD-EPI 2020) 81 mL/min >60 Feb 24, 2024 09:29 AM [facility] MICROSCOPIC AUTOMATED, URINE URINE Specimen T ype: URINE Comment: If Glucose = >500 and Ketones are positive, please alert the Physician. Ordering Provider: SYED SLAUGHTER Report Released Date/Time: Feb 14, 2024 07:02 PM Reporting Lab: [address] [address] Performing Lab: [address] [address] UA WBC 0-5 /[HPF] 0-5 UA BACTERIA 1+ /[HPF] NoneObs UA MUCUS MANY /[LPF] Trace UA RBC 0-2 /[HPF] 0-3 UA SQUAMOUS EPITH FEW /[HPF] Feb 24, 2024 09:29 AM [facility] URINALYSIS CLEAN CATCH URINE Specimen Type: U RINE Comment: If Glucose = >500 and Ketones are positive, please alert the Physician. Ordering Provider: SYED SLAUGHTER Report Released Date/Time: Feb 14, 2024 07:02 PM Reporting Lab: [address] [address] Performing Lab: [address] [address] UA COLOR Yellow Yellow UA APPEARANCE Clear Clear UA GLUCOSE Normal mg/dL Negative UA KETONES NEGATIVE mg/dL Negative UA BLOOD NEGATIVE mg/dL Negative UA PROTEIN 30 mg/dL Negative UA NITRITE NEGATIVE mg/dL Negative UA BILIRUBIN NEGATIVE mg/dL Negative UA SPECIFIC GRAVITY 1.033 H 1.016-1.022 UA pH 6.0 5.0-9.0 UA UROBILINOGEN Normal mg/dL <2.0 UA LEUKOCYTE NEGATIVE Negative Feb 24, 2024 09:29 AM [facility] CBC AND DIFF (AUTO) BLOOD Specimen Type: BLOO D No comment entered. Ordering Provider: SYED SLAUGHTER Report Released Date/Time: Feb 14, 2024 07:02 PM Reporting Lab: [address] [address] Performing Lab: [facility] [place] [facility] [address] [address] WBC 8.21 10*3/uL 4.50-11.00 RBC 4.90 10*6/uL 4.23-5.66 HGB 15.4 g/dL 12.8-17 HCT 45.9 39.2-50.4 MCV 93.7 fL 82-99 MCHC 33.6 g/dL 30.8-35.1 PLT 155 10*3/uL 140-360 RDW-CV 13.2 12.0-16.0 MONO, ABS 0.85 10*3/uL 0.30-1.10 MCH 31.4 pg 26.2-32.6 NEUT % 58.3 43.7-75.8 LYMPH % 30.0 14.0-42.3 MONO % 10.4 5.1-13.7 EOS % 0.0 L 0.4-6.8 BASO % 0.7 0.1-2.0 NEUT, ABS 4.79 10*3/uL 2.20-7.60 LYMPH, ABS 2.46 10*3/uL 1.00-3.20 EOS, ABS 0.00 10*3/uL L 0.03-0.44 BASO, ABS 0.06 10*3/uL 0.01-0.13 IMMATURE GRAN % 0.6 0.0-0.7 IMMATURE GRAN, ABS 0.05 10*3/uL 0.00-0.0 6 NRBC % 0.0 0.0-0.0 NRBC, ABS 0.00 10*3/uL 0.00-0.00 Vital Signs: All taken on the encounter date This section contains inpatient and outpatient Vital Signs collected on the date of the Encounter. Date/Time Temperature Pulse Blood Pressure Respiratory Rate SP02 Pain Height Weight Body Mass Index Source Feb 24, 2024 09:15 AM 118/74 [facility] [place] [facility] Feb 24, 2024 08:49 AM 98.1 80 145/78 20 94 0 67 165 26 [facility] Social History: Smoking Status (Most current) and Tobacco Use (All prior to encounter date) This section includes the most current, and the historical, smoking and tobacco- related health factors from the [place] facility where the Encounter took place. Current Smoking Status This section includes the most current smoking, or tobacco-related health factor, from the [place] facility where the Encounter took place. Date/Time Current Smoking Status Comment [facility] it Feb 24, 2024 09:00 AM VA-TOBACCO FORMER USER [place] [facility] [place] [facility] Tobacco Use History This section includes a history of the smoking, or tobacco-related health factors, that were collected on or before the date of the Encounter. The data comes from the [place] facility where the Encounter took place. Date/Time Smoking Status/Tobac co Use Comment Facility Feb 24, 2024 09:00 AM VA-TOBACCO QUIT 5 TO < 15 YRS [facility] [place] [facility] Feb 23, 2023 08:30 AM VA-TOBACCO FORMER USER [facility] [place] [facility] Feb 23, 2023 08:30 AM VA-TOBACCO QUIT 5 TO < 15 YRS [facility] [place] [facility] Feb 21, 2022 08:30 AM VA-TOBACCO FORMER USER [facility] [place] [facility] Feb 21, 2022 08:30 AM VA-TOBACCO QUIT 5 TO < 15 YRS [facility] [place] [facility] Feb 15, 2021 08:00 AM VA-TOBACCO FORMER USER [facility] [place] [facility] Feb 15, 2021 08:00 AM VA-TOBACCO QUIT 5 TO < 15 YRS [facility] [place] [facility] Feb 14, 2020 10:30 AM VA-TOBACCO FORMER USER [facility] [place] [facility] Feb 14, 2020 10:30 AM VA-TOBACCO QUIT 5 TO < 15 YRS [facility] [place] [facility] Aug 09, 2018 10:15 AM VA-TOBACCO NEVER USED [facility] [place] [facility] Oct 07, 2017 09:04 AM QUIT TOBACCO USE > 7 YEARS AGO pt quit 7 yrs ago [facility] [place] [facility] Sep 24, 2016 10:34 AM QUIT TOBACCO USE > 7 YEARS AGO [facility] [place] [facility] May 22, 2015 10:32 AM QUIT TOBACCO USE > 7 YEARS AGO quit 7-8 yrs ago [facility] [place] [facility] Sep 12, 2004 08:09 AM HISTORY OF SMOKING Smoke free since 1997 [facility] Sep 13, 2003 08:34 AM HISTORY OF SMOKING [facility] Sep 13, 2002 08:19 AM HISTORY OF SMOKING [facility] Sep 15, 2001 08:49 AM HISTORY OF SMOKING [facility] Sep 15, 2001 08:49 AM QUIT TOBACCO USE > 7 YEARS AGO [facility] Sep 17, 2000 10:34 AM HISTORY OF SMOKING [facility] Radiology Reports: +/- 30 days of the encounter Radiology Reports For cases when an order for radiology services may have been completed prior to the date of the Encounter, the report list includes the Radiology Reports that were completed up to 30 days before dateof the Encounter. For cases when an order for radiology services may have been completed after the date of the Encounter, the report list also includes the Radiology Reports that were completed up to30 days after date of the Encounter. The data comes from all [facility] facilities. 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 Comparison: None. Findings: The liver is normal in long length with mild atrophy of the left lobe and diffusely increased in echogenicity consistent with hepatic steatosis/fibrosis. No intrahepatic bile duct dilatation is seen. No hepatic mass is seen. The portal vein is patent with normal hepatopedal flow. The common hepatic duct measures 0.39 cm, which is normal. The gallbladder is normal. No gallstones are identified. There is a negative sonographic Mendez sign present. The visualized pancreas is normal. The spleen is normal and measures 10.5 cm in length. No ascites is identified. Impression: Hepatic steatotic/fibrotic changes with normal gallbladder and spleen. Primary Diagnostic Code: No immediate attention required Primary Interpreting Staff: AYQUELIN RIVAS JR, Radiologist (Hide And Skin Fleshing Machine Operator) /YAQUELIN WINTERS JR IN [facility] Encounter Notes: All associated encounter notes This section contains the clinical notes associated to the Encounter. Date/Time Encounter Note(s) Provider Source Feb 24, 2024 09:15 AM PHYSICIAN NOTE: LOCAL TITLE: MD NOTE STANDARD TITLE: PHYSICIAN NOTE DATE OF NOTE: FEB 24, 2024@09:15 ENTRY DATE: FEB 24, 2024@09:15:30 AUTHOR: SYED SLAUGHTER EXP COSIGNER: URGENCY: STATUS: COMPLETED Patient Name: KALLIE MEHTA VITALS: Patient temperature: 98.1 F [36.7 C] (02/24/2024 08:49) Blood pressure: 118/74 (02/24/2024 09:15) Patient height: 67 in [170.2 cm] (02/24/2024 08:49) Patient weight: 165 lb [74.84 kg] (02/24/2024 08:49) Patient BMI: BMI: 25.9 Patient pulse: 80 (02/24/2024 08:49) Patient respiration: 20 (02/24/2024 08:49) Patient Pulse Oximetry: 94% (02/24/2024 08:49) Pain Ratin (02/24/2024 08:49) Active [facility] Medications: Active Outpatient Medications (including Supplies): Active Outpatient Medications Status 1) CYCLOSPORINE 0.05% (PF) OPH EMUL 0.4ML INSTILL 1 DROP ACTIVE INTO EACH EYE TWICE DAILY Active Non-VA Medications Status 1) Non-VA DONEPEZIL HCL 10MG TAB 10MG BY MOUTH DAILY ACTIVE 2) Non-VA NAPROXEN TAB 220MG BY MOUTH ONCE DAILY ACTIVE NEEDED 3 Total Medications Remote Medications: Active Medications from Remote Data ALFUZOSIN HCL 10MG TAB,SA Sig: Quantity: 90 Days Supply: 90 Original # of Refills: 3 Rx Expiration: Last filled 08/01/07 at [facility] #[id number] (Active) DONEPEZIL HCL 10MG TAB Sig: Quantity: 90 Days Supply: 90 Original # of Refills: 2 Rx Expiration: Last filled 09/09/15 at [facility] (Active) INFLUENZA VACCINE,TRIVALENT (PF/LATEX-FREE),SYRINGE,0.5ML Sig: Quantity: 0 Days Supply: 1 Original # of Refills: 0 Rx Expiration: Last filled 02/10/14 at [facility][id number] (Active) DONEPEZIL HCL 10MG,TAB RAPID DISINTEGRATING Sig: Quantity: 90 Days Supply: 90 Original # of Refills: 3 Rx Expiration: Last filled 04/19/15 at [facility] (Active) DONEPEZIL HCL 10MG TAB Sig: Quantity: 90 Days Supply: 90 Original # of Refills: 4 Rx Expiration: Last filled 09/01/17 at [facility] (Active) METHYLPREDNISOLONE 4MG TAB Sig: Quantity: 21 Days Supply: 7 Original # of Refills: 0 Rx Expiration: Last filled 12/28/07 at [facility] #[id number] (Active) ESZOPICLONE 3MG TAB Sig: Quantity: 20 Days Supply: 20 Original # of Refills: 5 Rx Expiration: Last filled 01/13/10 at [facility] #[id number] (Active) CITALOPRAM HYDROBROMIDE 10MG TAB Sig: Quantity: 90 Days Supply: 90 Original # of Refills: 2 Rx Expiration: Last filled 06/24/18 at [facility] (Active) CITALOPRAM HYDROBROMIDE 10MG TAB Sig: Quantity: 90 Days Supply: 90 Original # of Refills: 3 Rx Expiration: Last filled 04/22/17 at [facility] (Active) CYCLOSPORINE 0.05% (PF) EMULSION,OPH Sig: Quantity: 60 Days Supply: 30 Original # of Refills: 4 Rx Expiration: Last filled 04/01/10 at [facility] #[id number] (Active) AZITHROMYCIN 1% SOLN,OPH Sig: Quantity: 2 Days Supply: 4 Original # of Refills: 2 Rx Expiration: Last filled 05/23/09 at [facility] #[id number] (Active) OMEPRAZOLE 40MG CAP,EC Sig: Quantity: 90 Days Supply: 90 Original # of Refills: 3 Rx Expiration: Last filled 09/07/17 at [facility] (Active) PANTOPRAZOLE NA 40MG TAB,EC Sig: Quantity: 30 Days Supply: 30 Original # of Refills: 11 Rx Expiration: Last filled 09/27/13 at [facility] #[id number] (Active) ALFUZOSIN HCL 10MG TAB,SA Sig: Quantity: 90 Days Supply: 90 Original # of Refills: 3 Rx Expiration: Last filled 04/30/07 at [facility] #[id number] (Active) DONEPEZIL HCL 10MG,TAB RAPID DISINTEGRATING Sig: Quantity: 30 Days Supply: 30 Original # of Refills: 0 Rx Expiration: Last filled 02/06/15 at [facility] #[id number] (Active) ZOLPIDEM TARTRATE 10MG TAB Sig: Quantity: 20 Days Supply: 20 Original # of Refills: 5 Rx Expiration: Last filled 02/25/10 at [facility] #[id number] (Active) CITALOPRAM HYDROBROMIDE 10MG TAB Sig: Quantity: 90 Days Supply: 90 Original # of Refills: 3 Rx Expiration: Last filled 07/21/17 at [facility] (Active) FLUTICASONE 115MCG/SALMETEROL 21MCG INHL,ORAL,12GM Sig: Quantity: 12 Days Supply: 30 Original # of Refills: 4 Rx Expiration: Last filled 01/20/18 at [facility] (Active) CITALOPRAM HYDROBROMIDE 10MG TAB Sig: Quantity: 90 Days Supply: 90 Original # of Refills: 2 Rx Expiration: Last filled 03/28/18 at [facility] (Active) AZITHROMYCIN 1% SOLN,OPH Sig: Quantity: 2 Days Supply: 8 Original # of Refills: 2 Rx Expiration: Last filled 05/29/09 at [facility] #[id number] (Active) CITALOPRAM HYDROBROMIDE 20MG TAB Sig: Quantity: 30 Days Supply: 30 Original # of Refills: 11 Rx Expiration: Last filled 10/11/08 at [facility] #[id number] (Active) CYCLOSPORINE 0.05% (PF) EMULSION,OPH Sig: Quantity: 60 Days Supply: 30 Original # of Refills: 4 Rx Expiration: Last filled 05/23/09 at [facility] #[id number] (Active) ZOLPIDEM TARTRATE 10MG TAB Sig: Quantity: 20 Days Supply: 20 Original # of Refills: 5 Rx Expiration: Last filled 12/29/09 at [facility] #[id number] (Active) CITALOPRAM HYDROBROMIDE 10MG TAB Sig: Quantity: 30 Days Supply: 30 Original # of Refills: 2 Rx Expiration: Last filled 08/11/15 at [facility] #[id number] (Active) CYCLOSPORINE 0.05% (PF) EMULSION,OPH Sig: Quantity: 60 Days Supply: 30 Original # of Refills: 4 Rx Expiration: Last filled 10/27/09 at [facility] #[id number] (Active) OMEPRAZOLE 40MG CAP,EC Sig: Quantity: 90 Days Supply: 90 Original # of Refills: 3 Rx Expiration: Last filled 10/24/14 at [facility] (Active) OMEPRAZOLE 40MG CAP,EC Sig: Quantity: 90 Days Supply: 90 Original # of Refills: 3 Rx Expiration: Last filled 02/15/14 at [facility] (Active) DIPHENHYDRAMINE HCL 50MG CAP Sig: Quantity: 30 Days Supply: 5 Original # of Refills: 0 Rx Expiration: Last filled 01/25/08 at [facility] #[id number] (Active) TIOTROPIUM 18MCG CAP,INHL,5 Sig: Quantity: 90 Days Supply: 90 Original # of Refills: 2 Rx Expiration: Last filled 11/10/13 at [facility] (Active) ESZOPICLONE 3MG TAB Sig: Quantity: 20 Days Supply: 20 Original # of Refills: 5 Rx Expiration: Last filled 08/12/07 at [facility] #[id number] (Active) CITALOPRAM HYDROBROMIDE 20MG TAB Sig: Quantity: 30 Days Supply: 30 Original # of Refills: 11 Rx Expiration: Last filled 09/13/08 at [facility] #[id number] (Active) ESZOPICLONE 3MG TAB Sig: Quantity: 20 Days Supply: 20 Original # of Refills: 5 Rx Expiration: Last filled 09/15/09 at [facility] #[id number] (Active) DOXYCYCLINE MONOHYDRATE 30MG IR/10MG CAP,EC Sig: Quantity: 30 Days Supply: 30 Original # of Refills: 2 Rx Expiration: Last filled 09/17/15 at [facility] #[id number] (Active) ESZOPICLONE 3MG TAB Sig: Quantity: 20 Days Supply: 20 Original # of Refills: 5 Rx Expiration: Last filled 05/26/09 at [facility] #[id number] (Active) ESZOPICLONE 3MG TAB Sig: Quantity: 20 Days Supply: 20 Original # of Refills: 5 Rx Expiration: Last filled 12/26/08 at [facility] #[id number] (Active) OMEPRAZOLE 40MG CAP,EC Sig: Quantity: 90 Days Supply: 90 Original # of Refills: 4 Rx Expiration: Last filled 12/11/15 at [facility] (Active) CITALOPRAM HYDROBROMIDE 10MG TAB Sig: Quantity: 90 Days Supply: 90 Original # of Refills: 3 Rx Expiration: Last filled 10/24/16 at [facility] (Active) CYCLOSPORINE 0.05% (PF) EMULSION,OPH Sig: Quantity: 60 Days Supply: 30 Original # of Refills: 4 Rx Expiration: Last filled 05/02/10 at [facility] #[id number] (Active) CITALOPRAM HYDROBROMIDE 10MG TAB Sig: Quantity: 90 Days Supply: 90 Original # of Refills: 4 Rx Expiration: Last filled 04/29/16 at [facility] (Active) CYCLOSPORINE 0.05% (PF) EMULSION,OPH Sig: Quantity: 60 Days Supply: 30 Original # of Refills: 4 Rx Expiration: Last filled 08/28/09 at [facility] #[id number] (Active) AZITHROMYCIN 1% SOLN,OPH Sig: Quantity: 2 Days Supply: 8 Original # of Refills: 2 Rx Expiration: Last filled 06/05/09 at [facility] #[id number] (Active) ESZOPICLONE 3MG TAB Sig: Quantity: 20 Days Supply: 20 Original # of Refills: 5 Rx Expiration: Last filled 02/04/08 at [facility] #[id number] (Active) CITALOPRAM HYDROBROMIDE 20MG TAB Sig: Quantity: 30 Days Supply: 30 Original # of Refills: 6 Rx Expiration: Last filled 09/24/07 at [facility] #[id number] (Active) DOXYCYCLINE MONOHYDRATE 30MG IR/10MG CAP,EC Sig: Quantity: 30 Days Supply: 30 Original # of Refills: 2 Rx Expiration: Last filled 08/17/15 at [facility] #[id number] (Active) CITALOPRAM HYDROBROMIDE 20MG TAB Sig: Quantity: 30 Days Supply: 30 Original # of Refills: 6 Rx Expiration: Last filled 02/07/08 at [facility] #[id number] (Active) DONEPEZIL HCL 10MG TAB Sig: Quantity: 90 Days Supply: 90 Original # of Refills: 4 Rx Expiration: Last filled 02/28/18 at [facility] (Active) ESZOPICLONE 3MG TAB Sig: Quantity: 16 Days Supply: 16 Original # of Refills: 5 Rx Expiration: Last filled 04/15/07 at [facility] #[id number] (Active) ESZOPICLONE 3MG TAB Sig: Quantity: 20 Days Supply: 20 Original # of Refills: 5 Rx Expiration: Last filled 10/28/08 at [facility] #[id number] (Active) OMEPRAZOLE 40MG CAP,EC Sig: Quantity: 90 Days Supply: 90 Original # of Refills: 3 Rx Expiration: Last filled 03/31/15 at [facility] (Active) ESZOPICLONE 3MG TAB Sig: Quantity: 20 Days Supply: 20 Original # of Refills: 5 Rx Expiration: Last filled 11/28/08 at [facility] #[id number] (Active) OMEPRAZOLE 40MG CAP,EC Sig: Quantity: 90 Days Supply: 90 Original # of Refills: 4 Rx Expiration: Last filled 06/08/16 at [facility] (Active) DONEPEZIL HCL 5MG TAB Sig: Quantity: 30 Days Supply: 30 Original # of Refills: 11 Rx Expiration: Last filled 01/16/15 at [facility] #[id number] (Active) DOXYCYCLINE MONOHYDRATE 30MG IR/10MG CAP,EC Sig: Quantity: 90 Days Supply: 90 Original # of Refills: 4 Rx Expiration: Last filled 06/12/16 at [facility] (Active) CITALOPRAM HYDROBROMIDE 10MG TAB Sig: Quantity: 90 Days Supply: 90 Original # of Refills: 3 Rx Expiration: Last filled 11/18/17 at [facility] (Active) CITALOPRAM HYDROBROMIDE 20MG TAB Sig: Quantity: 30 Days Supply: 30 Original # of Refills: 5 Rx Expiration: Last filled 04/22/07 at [facility] #[id number] (Active) CITALOPRAM HYDROBROMIDE 20MG TAB Sig: Quantity: 30 Days Supply: 30 Original # of Refills: 5 Rx Expiration: Last filled 06/25/07 at [facility] #[id number] (Active) CITALOPRAM HYDROBROMIDE 20MG TAB Sig: Quantity: 30 Days Supply: 30 Original # of Refills: 6 Rx Expiration: Last filled 03/06/08 at [facility] #[id number] (Active) CITALOPRAM HYDROBROMIDE 10MG TAB Sig: Quantity: 90 Days Supply: 90 Original # of Refills: 2 Rx Expiration: Last filled 11/30/17 at [facility] (Active) CITALOPRAM HYDROBROMIDE 20MG TAB Sig: Quantity: 30 Days Supply: 30 Original # of Refills: 5 Rx Expiration: Last filled 07/25/07 at [facility] #[id number] (Active) DONEPEZIL HCL 10MG TAB Sig: Quantity: 90 Days Supply: 90 Original # of Refills: 4 Rx Expiration: Last filled 03/05/17 at [facility] (Active) PANTOPRAZOLE NA 40MG TAB,EC Sig: Quantity: 30 Days Supply: 30 Original # of Refills: 11 Rx Expiration: Last filled 09/25/13 at [facility] #[id number] (Active) CITALOPRAM HYDROBROMIDE 10MG TAB Sig: Quantity: 90 Days Supply: 90 Original # of Refills: 3 Rx Expiration: Last filled 11/12/17 at [facility] (Active) DOXYCYCLINE MONOHYDRATE 30MG IR/10MG CAP,EC Sig: Quantity: 30 Days Supply: 30 Original # of Refills: 2 Rx Expiration: Last filled 09/18/15 at [facility] #[id number] (Active) DOXYCYCLINE MONOHYDRATE 30MG IR/10MG CAP,EC Sig: Quantity: 30 Days Supply: 30 Original # of Refills: 5 Rx Expiration: Last filled 11/23/15 at [facility] #[id number] (Active) ESZOPICLONE 3MG TAB Sig: Quantity: 20 Days Supply: 20 Original # of Refills: 5 Rx Expiration: Last filled 01/28/09 at [facility] #[id number] (Active) ESZOPICLONE 3MG TAB Sig: Quantity: 20 Days Supply: 20 Original # of Refills: 5 Rx Expiration: Last filled 04/11/10 at [facility] #[id number] (Active) CITALOPRAM HYDROBROMIDE 10MG TAB Sig: Quantity: 90 Days Supply: 90 Original # of Refills: 4 Rx Expiration: Last filled 08/17/15 at [facility] (Active) DOXYCYCLINE MONOHYDRATE 30MG IR/10MG CAP,EC Sig: Quantity: 90 Days Supply: 90 Original # of Refills: 0 Rx Expiration: Last filled 12/20/18 at [facility] (Active) ESZOPICLONE 3MG TAB Sig: Quantity: 20 Days Supply: 20 Original # of Refills: 5 Rx Expiration: Last filled 08/28/08 at [facility] #[id number] (Active) OMEPRAZOLE 40MG CAP,EC Sig: Quantity: 90 Days Supply: 90 Original # of Refills: 3 Rx Expiration: Last filled 09/09/15 at [facility] (Active) ALBUTEROL SO4 90MCG/ACTUAT (CFC-F) INHL,ORAL,6.7GM Sig: Quantity: 17 Days Supply: 25 Original # of Refills: 5 Rx Expiration: Last filled 12/31/07 at [facility] #[id number] (Active) DONEPEZIL HCL 10MG TAB Sig: Quantity: 90 Days Supply: 90 Original # of Refills: 4 Rx Expiration: Last filled 12/05/16 at [facility] (Active) CYCLOSPORINE 0.05% (PF) EMULSION,OPH Sig: Quantity: 60 Days Supply: 30 Original # of Refills: 4 Rx Expiration: Last filled 01/30/10 at [facility] #[id number] (Active) CITALOPRAM HYDROBROMIDE 20MG TAB Sig: Quantity: 90 Days Supply: 90 Original # of Refills: 3 Rx Expiration: Last filled 11/05/18 at [facility] (Active) DOXYCYCLINE MONOHYDRATE 30MG IR/10MG CAP,EC Sig: Quantity: 30 Days Supply: 30 Original # of Refills: 0 Rx Expiration: Last filled 08/17/15 at [facility] #[id number] (Active) ESZOPICLONE 3MG TAB Sig: Quantity: 20 Days Supply: 20 Original # of Refills: 5 Rx Expiration: Last filled 02/26/09 at [facility] #[id number] (Active) OMEPRAZOLE 40MG CAP,EC Sig: Quantity: 90 Days Supply: 90 Original # of Refills: 3 Rx Expiration: Last filled 04/27/14 at [facility] (Active) DONEPEZIL HCL 10MG TAB Sig: Quantity: 90 Days Supply: 90 Original # of Refills: 4 Rx Expiration: Last filled 11/25/18 at [facility] (Active) CITALOPRAM HYDROBROMIDE 20MG TAB Sig: Quantity: 30 Days Supply: 30 Original # of Refills: 11 Rx Expiration: Last filled 04/17/08 at [facility] #[id number] (Active) CITALOPRAM HYDROBROMIDE 20MG TAB Sig: Quantity: 30 Days Supply: 30 Original # of Refills: 11 Rx Expiration: Last filled 12/17/08 at [facility] #[id number] (Active) LEVOCETIRIZINE DIHYDROCHLORIDE 5MG TAB Sig: Quantity: 30 Days Supply: 30 Original # of Refills: 3 Rx Expiration: Last filled 05/14/08 at [facility] #[id number] (Active) FLUTICASONE 115MCG/SALMETEROL 21MCG INHL,ORAL,12GM Sig: Quantity: 36 Days Supply: 90 Original # of Refills: 4 Rx Expiration: Last filled 09/01/15 at [facility] (Active) PEG-3350/ELECTROLYTES PWDR W/FLAVOR PKT Sig: Quantity: 4000 Days Supply: 1 Original # of Refills: 0 Rx Expiration: Last filled 05/25/14 at [facility] #[id number] (Active) CITALOPRAM HYDROBROMIDE 20MG TAB Sig: Quantity: 30 Days Supply: 30 Original # of Refills: 6 Rx Expiration: Last filled 11/07/07 at [facility] #[id number] (Active) ESZOPICLONE 3MG TAB Sig: Quantity: 20 Days Supply: 20 Original # of Refills: 3 Rx Expiration: Last filled 05/05/08 at [facility] #[id number] (Active) CITALOPRAM HYDROBROMIDE 10MG TAB Sig: Quantity: 90 Days Supply: 90 Original # of Refills: 3 Rx Expiration: Last filled 10/20/17 at [facility] (Active) TIOTROPIUM 18MCG CAP,INHL,5 Sig: Quantity: 90 Days Supply: 90 Original # of Refills: 0 Rx Expiration: Last filled 11/26/14 at [facility] (Active) CITALOPRAM HYDROBROMIDE 20MG TAB Sig: Quantity: 30 Days Supply: 30 Original # of Refills: 11 Rx Expiration: Last filled 07/10/08 at [facility] #[id number] (Active) CYCLOSPORINE 0.05% (PF) EMULSION,OPH Sig: Quantity: 60 Days Supply: 30 Original # of Refills: 4 Rx Expiration: Last filled 07/28/09 at [facility] #[id number] (Active) AZITHROMYCIN 250MG TAB,UD Sig: Quantity: 6 Days Supply: 5 Original # of Refills: 0 Rx Expiration: Last filled 04/03/08 at [facility] #[id number] (Active) ESZOPICLONE 3MG TAB Sig: Quantity: 20 Days Supply: 20 Original # of Refills: 5 Rx Expiration: Last filled 07/14/07 at [facility] #[id number] (Active) AZITHROMYCIN 250MG TAB,UD Sig: Quantity: 6 Days Supply: 5 Original # of Refills: 0 Rx Expiration: Last filled 08/03/07 at [facility] #[id number] (Active) FLUTICASONE 115MCG/SALMETEROL 21MCG INHL,ORAL,12GM Sig: Quantity: 36 Days Supply: 90 Original # of Refills: 4 Rx Expiration: Last filled 11/22/16 at [facility] (Active) ESZOPICLONE 3MG TAB Sig: Quantity: 20 Days Supply: 20 Original # of Refills: 5 Rx Expiration: Last filled 04/25/09 at [facility] #[id number] (Active) DOXYCYCLINE MONOHYDRATE 30MG IR/10MG CAP,EC Sig: Quantity: 90 Days Supply: 90 Original # of Refills: 4 Rx Expiration: Last filled 09/29/16 at [facility] (Active) ESZOPICLONE 3MG TAB Sig: Quantity: 20 Days Supply: 20 Original # of Refills: 5 Rx Expiration: Last filled 12/07/07 at [facility] #[id number] (Active) CITALOPRAM HYDROBROMIDE 20MG TAB Sig: Quantity: 30 Days Supply: 30 Original # of Refills: 6 Rx Expiration: Last filled 01/07/08 at [facility] #[id number] (Active) LEVOCETIRIZINE DIHYDROCHLORIDE 5MG TAB Sig: Quantity: 30 Days Supply: 30 Original # of Refills: 3 Rx Expiration: Last filled 02/20/08 at [facility] #[id number] (Active) ESZOPICLONE 3MG TAB Sig: Quantity: 20 Days Supply: 20 Original # of Refills: 5 Rx Expiration: Last filled 01/04/08 at [facility] #[id number] (Active) ESZOPICLONE 3MG TAB Sig: Quantity: 20 Days Supply: 20 Original # of Refills: 5 Rx Expiration: Last filled 09/27/08 at [facility] #[id number] (Active) ESZOPICLONE 3MG TAB Sig: Quantity: 20 Days Supply: 20 Original # of Refills: 5 Rx Expiration: Last filled 07/01/08 at [facility] #[id number] (Active) CITALOPRAM HYDROBROMIDE 20MG TAB Sig: Quantity: 30 Days Supply: 30 Original # of Refills: 11 Rx Expiration: Last filled 04/04/09 at [facility] #[id number] (Active) LEVOCETIRIZINE DIHYDROCHLORIDE 5MG TAB Sig: Quantity: 30 Days Supply: 30 Original # of Refills: 3 Rx Expiration: Last filled 03/28/08 at [facility] #[id number] (Active) FLUTICASONE 115MCG/SALMETEROL 21MCG INHL,ORAL,12GM Sig: Quantity: 36 Days Supply: 90 Original # of Refills: 4 Rx Expiration: Last filled 05/21/17 at [facility] (Active) ESZOPICLONE 3MG TAB Sig: Quantity: 20 Days Supply: 20 Original # of Refills: 5 Rx Expiration: Last filled 10/31/09 at [facility] #[id number] (Active) ESZOPICLONE 3MG TAB Sig: Quantity: 20 Days Supply: 20 Original # of Refills: 5 Rx Expiration: Last filled 07/31/08 at [facility] #[id number] (Active) ESZOPICLONE 3MG TAB Sig: Quantity: 20 Days Supply: 20 Original # of Refills: 3 Rx Expiration: Last filled 04/06/08 at [facility] #[id number] (Active) CYCLOSPORINE 0.05% (PF) EMULSION,OPH Sig: Quantity: 60 Days Supply: 30 Original # of Refills: 4 Rx Expiration: Last filled 11/26/09 at [facility] #[id number] (Active) PEG-3350/ELECTROLYTES PWDR W/FLAVOR PKT Sig: Quantity: 4000 Days Supply: 1 Original # of Refills: 0 Rx Expiration: Last filled 10/29/08 at [facility] #[id number] (Active) CITALOPRAM HYDROBROMIDE 10MG TAB Sig: Quantity: 90 Days Supply: 90 Original # of Refills: 3 Rx Expiration: Last filled 08/30/18 at [facility] (Active) CYCLOSPORINE 0.05% (PF) EMULSION,OPH Sig: Quantity: 60 Days Supply: 30 Original # of Refills: 4 Rx Expiration: Last filled 06/23/09 at [facility] #[id number] (Active) ESZOPICLONE 3MG TAB Sig: Quantity: 20 Days Supply: 20 Original # of Refills: 5 Rx Expiration: Last filled 11/23/09 at [facility] #[id number] (Active) CITALOPRAM HYDROBROMIDE 10MG TAB Sig: Quantity: 90 Days Supply: 90 Original # of Refills: 3 Rx Expiration: Last filled 01/22/17 at [facility] (Active) LEVOCETIRIZINE DIHYDROCHLORIDE 5MG TAB Sig: Quantity: 30 Days Supply: 30 Original # of Refills: 3 Rx Expiration: Last filled 01/25/08 at [facility] #[id number] (Active) ESZOPICLONE 3MG TAB Sig: Quantity: 20 Days Supply: 20 Original # of Refills: 3 Rx Expiration: Last filled 03/06/08 at [facility] #[id number] (Active) ESZOPICLONE 3MG TAB Sig: Quantity: 16 Days Supply: 16 Original # of Refills: 5 Rx Expiration: Last filled 06/12/07 at [facility] #[id number] (Active) CICLOPIROX OLAMINE 0.77% CREAM,TOP Sig: Quantity: 15 Days Supply: 7 Original # of Refills: 0 Rx Expiration: Last filled 01/19/15 at [facility] #[id number] (Active) ESZOPICLONE 3MG TAB Sig: Quantity: 16 Days Supply: 16 Original # of Refills: 5 Rx Expiration: Last filled 05/15/07 at [facility] #[id number] (Active) OMEPRAZOLE 40MG CAP,EC Sig: Quantity: 90 Days Supply: 90 Original # of Refills: 3 Rx Expiration: Last filled 01/18/15 at [facility] (Active) DONEPEZIL HCL 10MG TAB Sig: Quantity: 90 Days Supply: 90 Original # of Refills: 3 Rx Expiration: Last filled 02/07/15 at [facility] (Active) CIPROFLOXACIN HCL 0.3% SOLN,OPH Sig: Quantity: 5 Days Supply: 5 Original # of Refills: 0 Rx Expiration: Last filled 05/15/08 at [facility] #[id number] (Active) CITALOPRAM HYDROBROMIDE 20MG TAB Sig: Quantity: 30 Days Supply: 30 Original # of Refills: 6 Rx Expiration: Last filled 12/07/07 at [facility] #[id number] (Active) DONEPEZIL HCL 10MG,TAB RAPID DISINTEGRATING Sig: Quantity: 90 Days Supply: 90 Original # of Refills: 1 Rx Expiration: Last filled 05/06/15 at [facility] #[id number] (Active) FLUTICASONE 115MCG/SALMETEROL 21MCG INHL,ORAL,12GM Sig: Quantity: 36 Days Supply: 90 Original # of Refills: 4 Rx Expiration: Last filled 06/20/15 at [facility] (Active) DONEPEZIL HCL 10MG TAB Sig: Quantity: 90 Days Supply: 90 Original # of Refills: 3 Rx Expiration: Last filled 06/25/15 at [facility] (Active) FLUTICASONE 115MCG/SALMETEROL 21MCG INHL,ORAL,12GM Sig: Quantity: 36 Days Supply: 90 Original # of Refills: 4 Rx Expiration: Last filled 08/24/16 at [facility] (Active) AMOXICILLIN TRIHYDRATE 500MG CAP Sig: Quantity: 30 Days Supply: 10 Original # of Refills: 0 Rx Expiration: Last filled 03/13/08 at [facility] #[id number] (Active) ESZOPICLONE 3MG TAB Sig: Quantity: 20 Days Supply: 20 Original # of Refills: 5 Rx Expiration: Last filled 10/10/07 at [facility] #[id number] (Active) CITALOPRAM HYDROBROMIDE 20MG TAB Sig: Quantity: 30 Days Supply: 30 Original # of Refills: 5 Rx Expiration: Last filled 05/22/07 at [facility] #[id number] (Active) AZITHROMYCIN 250MG TAB,UD Sig: Quantity: 6 Days Supply: 5 Original # of Refills: 0 Rx Expiration: Last filled 12/28/07 at [facility] #[id number] (Active) TIOTROPIUM 18MCG CAP,INHL,5 Sig: Quantity: 90 Days Supply: 90 Original # of Refills: 2 Rx Expiration: Last filled 01/21/14 at [facility] (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 Varela History of present illness Takes Lipitor for high cholesterol. Takes medication regularly. Feels well today without complaints. Review of systems No chest pain or dyspnea No abdominal pain No trouble urinating No fever or chills No cough Physical examination: Well developed well nourished in no apparent distress Vitals as above Heart: rrr, no m/r/g Lungs: clear to ausculatation Abdomen: soft, +bs, nontender, nondistended, no masses or guarding Extremities: no edema, no cyanosis or clubbing Neurologic: alert, normal gait, normal senory and motor, EOMI, PERRLA, conjunctiva and sclera normal Psychiatric: answers questions appropriately, normal/coherent speech HEENT: mucious membranes moist Ears and pharynx: no erythema, tympanic membranes normal Neck: supple Urogenital: normal external male, no masses Skin: warm, dry, no lesions 02-15-24 no show labs 1. Hypercholesterolemia: On Lipitor Plan check lipid profile fasting lab today Follow-up 1 year clinic visit and lab Medication Reconciliation: Outpatient: Has the patient been taking medications as documented in the EMLR? YES: The patient has been taking medications as documented in the EMLR. Essential Medication List for Review used to complete this medication reconciliation. INCLUDED IN THIS LIST: Alphabetical list of active outpatient prescriptions dispensed from this [place] (local) and dispensed from another [place] or [facility] facility (remote) as well as inpatient orders [...] whether with a VA or non-VA provider. Influenza Immunization: The patient has received the seasonal influenza vaccine for the current season at another location. Documented: INFLUENZA, UNSPECIFIED FORMULATION Historical Date Administered: Feb 14, 2024 Outside Location: Outside Healthcare Provider Information Source: FROM PATIENT'S RECALL /es/ Syed Slaughter MD Staff Physician Signed: 02/24/2024 09:20 SYED SLAUGHTER [place] [facility] [place] [facility] [place] 24, 2024 08:51 AM PREVENTIVE MEDICINE NURSING NOTE: LOCAL TITLE: CLINICAL REMINDERS/NURSING STANDARD TITLE: PREVENTIVE MEDICINE NURSING NOTE DATE OF NOTE: FEB 24, 2024@08:51 ENTRY DATE: FEB 24, 2024@08:51:55 AUTHOR: MAINOR FISHER COSIGNER: URGENCY: STATUS: COMPLETED Advance Directive Screen MH AD: Patient does not have an Advance Directive completed and is requesting more information. A consult was sent to Social Work Services at this visit so that an appointment can be made with the patient to review the advance directive. The patient received education about Advance Directives and written notification of his/her rights. Suicide Screen: C-SSRS Screening [place]-Suicide Severity Rating Scale (C-SSRS Screener) 1. Over the past month, have you wished you were or wished you could go to sleep and not wake up? No 2. Over the past month, have you had any actual thoughts of killing yourself? No 3. Over the past month, have you been thinking about how you might do this? Response not required due to responses to other questions. 4. Over the past month, have you had these thoughts and had some intention of acting on them? Response not required due to responses to other questions. 5. Over the past month, have you started to work out or worked out the details of how to kill yourself? Response not required due to responses to other questions. 6. If yes, at any time in the past month did you intend to carry out this plan? Response not required due to responses to other questions. 7. In your lifetime, have you ever done anything, started to do anything, or prepared to do anything to end your life (for example, collected pills, obtained a gun, gave away valuables, went to the roof but didn't jump)? No 8. If YES, was this within the past 3 months? Response not required due to responses to other questions. Homelessness/Food Insecurity Screen: In the past 2 months, have you been living in stable housing that you own, rent, or stay in as part of a household? Yes - Living in stable housing. Are you worried or concerned that in the next 2 months you may NOT have stable housing that you own, rent, or stay in as part of a household? No - Not worried about housing near future The reports the following: Within the past 12 months, you worried whether your food would run out before you got money to buy more. Never true Within the past 12 months, the food you bought just didn't last and you didn't have money to get more. Never true Depression Screening: Perform PHQ-2 A PHQ-2 screen was performed. The score was 0 which is a negative screen for depression. Over the past two weeks, how often have you been bothered by the following problems? 1. Little interest or pleasure in doing things Not at all 2. Feeling down, depressed, or hopeless Not at all Falls & Incontinence Screen: Falls Screen: 4. No falls within the past year. Incontinence Screen No incontinence. Tobacco Use Screening: The patient is a former tobacco user. The patient quit five to less than fifteen years ago. Alcohol Use Screen (AUDIT-C): Alcohol Screen: SCREEN FOR ALCOHOL (AUDIT-C) An alcohol screening test (AUDIT-C) was negative (score=1). 1. How often did you have a drink containing alcohol in the past year? Consider a drink to be a 12 ounce can or bottle of regular beer, 8 ounces of malt liquor, a 5 ounce glass of table wine, or a 1.5 ounce shot of liquor (like scotch, gin, or vodka). Monthly or less 2. How many drinks containing alcohol did you have on a typical day when you were drinking in the past year? One or two drinks 3. How often did you have six or more drinks on one occasion in the past year? Never RHS Screen: RHS Screen Session Format: Face to Face Environmental Check Upon inquiry, the individual reports that the environment is safe to proceed. Informed Consent to Screen and Document The individual consents to proceed with screening. The individual consents to documentation of responses. PRIMARY SCREEN: In the past 12 months, how often did a current or former intimate partner (e.g., boyfriend, girlfriend, , , sexual partner): 1. Scream or curse at you Never 2. Insult or talk down to you Never 3. Threaten you with harm Never 4. Physically hurt you Never 5. Force or pressure you to have sexual contact against your will, or when you were unable to say no Never ?? The HITS tool (items 1-4 above) is [place] copyright protected by Krunal Dowling MD, and the user has full rights to use it throughout the [place] system. PRIMARY SCREEN RESULT: The Primary Screen is NEGATIVE. The individual answered never to all forms of IPV above (i.e., answered never to all 5 items) The individual accepts education and/or resources: No EDUCATION: Other: not interested at [facility] mary /blanca/ [facility] Telephone Solicitor SPA MANAGER,PRIMARY CARE Signed: 02/24/2024 08:55 MAINOR FISHER [facility]
--- OUTSIDE RECORDS SUMMARY | 2024-10-06 11:17 | XMS_ITS | Encounter Summary ---
Author Name [facility] [place] [facility] [place] Address [address] [place] [address] Care Team Providers Care Workshop Manager Name Role Phone SYED SLAUGHTER Primary Care [...] Policy Gonzalez MEDICARE (WNR) MEDICARE (M) PART B Sep 14, 2011 PART B [id number] ROSIBEL MEHTA ERT PATIENT MEDICARE (WNR) MEDICARE (M) PART A Sep 14, 2011 PART A [id number] [id number] [id number] JANINE,ROSIBEL ERT PATIENT MEDICARE (WNR) MEDICARE (M) PART B Sep 14, 2011 PART B [id number] [id number] JANINE,ROSIBEL ERT PATIENT MEDICARE (WNR) MEDICARE (M) PART A Sep 14, 2011 PART A [id number] ROSIBEL MEHTA ERT PATIENT FOR LIFE TFL* Sep 14, 2011 [id number] ROSIBEL MEHTA ERT PATIENT ZZTRICARE (WNR) STAND PETER Dec [birth year] [address] [facility] [id number] ROSIBEL MEHTA ERT PATIENT Selected Encounter This section includes the information on record at [place] for the Encounter. Date/Time Encounter Type Encounter Description Reason Pro vider Source Apr 21, 2024 06:14 PM Outpatient Encounter ADMIN PAT ACTIVTIES (MASNONCT) IHE Encounter Template Text not used by [place] Plan of Treatment: Future Appointments (+ 6 months) and Future Tests (+/- 45 days) The Plan of Treatment section includes future care activities for the patient from all [place] treatmentfacilities. This section includes future appointments and future orders which are active, pending or scheduled. Future Appointments This section includes appointments that were scheduled to occur 6 months from the date of the Encounter, up to a maximum of 20 appointments. The data comes from all [place] treatment facilities. Appointment Date/Time Appointment Type Appointme nt Facility Name Sep 08, 2024 01:00 PM AMBULATORY - MEDICINE [facility] Active, Pending, and Scheduled Orders This section includes a listing of several types of active, pending, and scheduled orders, including clinic medications orders, diagnostic test orders, procedure orders and consult orders; where the start date of the order is 45 days before the date of the Encounter or 45 days after the date of theEncounter. The data comes from all [facility]. Test Date/Time Test Type Test Details Facility Name Mar 29, 2024 12:00 AM Laboratory - Chemistry Order ALPHA-FETOPROTEIN BLOOD (SST-SERUM) [facility] Mar 29, 2024 12:00 AM Laboratory - Chemistry Order MITOCHONDRIAL ANTIBODY (QU) BLOOD (SST-SERUM) [facility] Mar 29, 2024 12:00 AM Laboratory - Chemistry Order ACTIN (SMOOTH MUSCLE) ANTIBODY (IgG) BLOOD (SST-SERUM) [facility] Mar 29, 2024 12:00 AM Laboratory - Chemistry Order LIVER FUNCTION BLOOD (SST-SERUM) [facility] Mar 29, 2024 12:00 AM Laboratory - Chemistry Order HEPATITIS C ANTIBODY (HCV)-ARC BLOOD (MARBLED-TOP SERUM) [facility] Mar 29, 2024 12:00 AM Laboratory - Chemistry Order HEPATITIS B SURFACE ANTIBODY (HBsAb)- BLOOD (SST-SERUM) [facility] Mar 29, 2024 12:00 AM Laboratory - Chemistry Order HEPATITIS B SURFACE ANTIGEN (HBsAg)- BLOOD (SST-SERUM) [facility] Mar 29, 2024 12:00 AM Laboratory - Chemistry Order HEPATITIS B CORE (Total) Ab BLOOD (SST-SERUM) [facility] Mar 29, 2024 12:00 AM Laboratory - Chemistry Order IRON & TIBC PANEL BLOOD (SST-SERUM) [facility] Mar 29, 2024 12:00 AM Laboratory - Chemistry Order FERRITIN BLOOD (SST-SERUM) [facility] Jun 03, 2024 12:00 AM Laboratory - Chemistry Order ALPHA 1 ANTITRYPSIN BLOOD (RED-PLAIN) SERUM [facility] Jun 03, 2024 12:00 AM Laboratory - Chemistry Order CERULOPLASMIN BLOOD (RED-PLAIN) SERUM [facility] Social History: Smoking Status (Most current) and Tobacco Use (All prior to encounter date) This section includes the most current, and the historical, smoking and tobacco- related health factors from the [place] facility where the Encounter took place. Current Smoking Status This section includes the most current smoking, or tobacco-related health factor, from the [place] facility where the Encounter took place. Date/Time Current Smoking Status Comment Cortney almanzar Feb 24, 2024 09:00 AM VA-TOBACCO FORMER USER [facility] Tobacco Use History This section includes a history of the smoking, or tobacco-related health factors, that were collected on or before the date of the Encounter. The data comes from the [place] facility where the Encounter took place. Date/Time Smoking Status/Tobac co Use Comment Facility Feb 24, 2024 09:00 AM VA-TOBACCO QUIT 5 TO < 15 YRS [facility] Feb 23, 2023 08:30 AM VA-TOBACCO FORMER USER [facility] Feb 23, 2023 08:30 AM VA-TOBACCO QUIT 5 TO < 15 YRS [facility] [place] [facility] Feb 21, 2022 08:30 AM VA-TOBACCO FORMER USER [facility] [place] [facility] Feb 21, 2022 08:30 AM VA-TOBACCO QUIT 5 TO < 15 YRS [facility] [place] [facility] Feb 15, 2021 08:00 AM VA-TOBACCO FORMER USER [facility] [place] [facility] Feb 15, 2021 08:00 AM VA-TOBACCO QUIT 5 TO < 15 YRS [facility] [place] [facility] Feb 14, 2020 10:30 AM VA-TOBACCO FORMER USER [facility] [place] [facility] Feb 14, 2020 10:30 AM VA-TOBACCO QUIT 5 TO < 15 YRS [facility] [place] [facility] Aug 09, 2018 10:15 AM VA-TOBACCO NEVER USED [facility] [place] [facility] Oct 07, 2017 09:04 AM QUIT TOBACCO USE > 7 YEARS AGO pt quit 7 yrs ago [facility] [place] [facility] Sep 24, 2016 10:34 AM QUIT TOBACCO USE > 7 YEARS AGO [facility] [place] [facility] May 22, 2015 10:32 AM QUIT TOBACCO USE > 7 YEARS AGO quit 7-8 yrs ago [facility] [place] [facility] Sep 12, 2004 08:09 AM HISTORY OF SMOKING Smoke free since 1997 [facility] [place] [facility] Sep 13, 2003 08:34 AM HISTORY OF SMOKING [facility] [place] [facility] Sep 13, 2002 08:19 AM HISTORY OF SMOKING [facility] [place] [facility] Sep 15, 2001 08:49 AM HISTORY OF SMOKING [facility] [place] [facility] Sep 15, 2001 08:49 AM QUIT TOBACCO USE > 7 YEARS AGO [facility] [place] [facility] Sep 17, 2000 10:34 AM HISTORY OF SMOKING [facility] [place] [facility] Encounter Notes: All associated encounter notes This section contains the clinical notes associated to the Encounter. Date/Time Encounter Note(s) Provider Source Apr 21, 2024 06:14 PM PHARMACY NOTE: LOCAL TITLE: V1 PHARMACY CUSTOMER CARE MEDICATION RENEWAL STANDARD TITLE: PHARMACY NOTE DATE OF NOTE: APR 21, 2024@18:14 ENTRY DATE: APR 21, 2024@18:14:41 AUTHOR: AMBER PENN EXP COSIGNER: URGENCY: STATUS: COMPLETED V1 PHARMACY CUSTOMER CARE MEDICATION RENEWAL Has ADDENDA Date: Apr Division: [facility] referred by Pharmacy Call Center for medication renewal: Non-controlled/maintenan ce medication Medications requested: [id number] TRAZODONE HCL 100MG TAB Defer to primary care provider To be mailed. Please review and renew if appropriate. *This note was generated by [facility]/[place] [facility] Customer Care. If you have any questions or need assistance, do not contact this author. Please refer all questions to your local, on-site pharmacy departments. /blanca/ Amber Penn CPhT [employer], [place]/Pharmacy Customer Care Signed: 04/21/2024 18:15 Receipt Acknowledged By: 04/22/2024 08:55 /blanca/ Corina Magana RN, BSN Primary Care 04/22/2024 21:59 /blanca/ Syed Slaughter MD Staff Physician 04/22/2024 ADDENDUM STATUS: COMPLETED Done. /blanca/ Syed Slaughter MD Staff Physician Signed: 04/22/2024 21:59 AMBER PENN [place] [facility]
--- OUTSIDE RECORDS SUMMARY | 2024-10-06 11:17 | XMS_ITS | Encounter Summary ---
Author Name [facility] [place] [place] [facility] [place] Organization [facility] [place] Address [address] [place] [address] Care Team Providers Care Oil Lease Operator Name Role Phone JONI LEVI Primary Care Provider Unavailabl e Insurance Providers: [...] PART A Sep 14, 2011 PART A [id number] ROSIBEL MEHTA ERT PATIENT MEDICARE (WNR) MEDICARE (M) PART B Sep 14, 2011 PART B [id number] ROSIBEL MEHTA ERT PATIENT MEDICARE (WNR) MEDICARE (M) PART A Sep 14, 2011 PART A [id number] JANINE,ROSIBEL ERT PATIENT MEDICARE (WNR) MEDICARE (M) PART B Sep 14, 2011 PART B [id number] ROSIBEL MEHTA ERT PATIENT FOR LIFE TFL* Sep 14, 2011 [id number] ROSIBEL MEHTA ERT PATIENT ZZTRICARE (WNR) STAND PETER Dec 13, 1996 GONZALES GONZALES [id number] ROSIBEL MEHTA PATIENT Selected Encounter This section includes the information on record at [place] for the Encounter. Date/Time Encounter Type Encounter Description Reason Provider Source Sep 08, 2024 01:00 PM OFFICE O/P EST MOD 30 MIN OPTOMETRY ICD-10-CM L71.8 Other rosacea XIOMARA ESTRADAEL Cristina IHE Encounter Template Text not used by [place] Assessments - Encounter Diagnoses This section includes the primary and secondary diagnoses documented for the Encounter. Date/Time Primary/Secondary Diagnosis Diagnosis Name Provider Source Sep 11, 2024 12:18 PM PRIMARY Other rosacea NATALIEDG Cristina [facility] [place] [facility] Sep 11, 2024 12:18 PM SECONDARY Combined forms of age-related cataract, bilateral DG ESTRADA Cristina [facility] [place] [facility] Sep 11, 2024 12:18 PM SECONDARY Dry eye syndrome of bilateral lacrimal glands NATALIEDG Cristina [facility] [place] [facility] Sep 11, 2024 12:18 PM SECONDARY Oth disorders of optic nerve, NEC, bilateral DG ESTRADA Cristina [facility] [place] [facility] Sep 11, 2024 12:18 PM SECONDARY Posterior subcapsular polar age-related cataract, right eye DG ESTRADA Cristina [facility] [place] [facility] Sep 11, 2024 12:18 PM SECONDARY Rosacea conjunctivitis, bilateral NATALIEXIOMARADG E [facility] [place] [facility] Sep 11, 2024 12:18 PM SECONDARY Unspecified blepharitis left upper eyelid DG ESTRADA Cristina [facility] [place] [facility] Sep 11, 2024 12:18 PM SECONDARY Unspecified blepharitis right upper eyelid DG ESTRADA E [facility] [place] [facility] Plan of Treatment: Future Appointments (+ 6 months) and Future Tests (+/- 45 days) The Plan of Treatment section includes future care activities for the patient from all [place] treatmentfacilities. This section includes future appointments and future orders which are active, pending or scheduled. Future Appointments This section includes appointments that were scheduled to occur 6 months from the date of the Encounter, up to a maximum of 20 appointments. The data comes from all [place] treatment facilities. Appointment Date/Time Appointment Type Appointme nt Facility Name Feb 24, 2025 09:00 AM AMBULATORY - MEDICINE [facility] [place] [facility] Social History: Smoking Status (Most current) and Tobacco Use (All prior to encounter date) This section includes the most current, and the historical, smoking and tobacco- related health factors from the [place] facility where the Encounter took place. Current Smoking Status This section includes the most current smoking, or tobacco-related health factor, from the [place] facility where the Encounter took place. Date/Time Current Smoking Status Comment Facil it Feb 24, 2024 09:00 AM VA-TOBACCO FORMER USER [facility] Tobacco Use History This section includes a history of the smoking, or tobacco-related health factors, that were collected on or before the date of the Encounter. The data comes from the [place] facility where the Encounter took place. Date/Time Smoking Status/Tobac co Use Comment Facility Feb 24, 2024 09:00 AM VA-TOBACCO QUIT 5 TO < 15 YRS [facility] [place] [facility] Feb 23, 2023 08:30 AM VA-TOBACCO FORMER USER [facility] [place] [facility] Feb 23, 2023 08:30 AM VA-TOBACCO QUIT 5 TO < 15 YRS [facility] [place] [facility] Feb 21, 2022 08:30 AM VA-TOBACCO FORMER USER [facility] [place] [facility] Feb 21, 2022 08:30 AM VA-TOBACCO QUIT 5 TO < 15 YRS [facility] [place] [facility] Feb 15, 2021 08:00 AM VA-TOBACCO FORMER USER [facility] [place] [facility] Feb 15, 2021 08:00 AM VA-TOBACCO QUIT 5 TO < 15 YRS [facility] [place] [facility] Feb 14, 2020 10:30 AM VA-TOBACCO FORMER USER [facility] [place] [facility] Feb 14, 2020 10:30 AM VA-TOBACCO QUIT 5 TO < 15 YRS [facility] [place] [facility] Aug 09, 2018 10:15 AM VA-TOBACCO NEVER USED [facility] [place] [facility] Oct 07, 2017 09:04 AM QUIT TOBACCO USE > 7 YEARS AGO pt quit 7 yrs ago [facility] [place] [facility] Sep 24, 2016 10:34 AM QUIT TOBACCO USE > 7 YEARS AGO [facility] [place] [facility] May 22, 2015 10:32 AM QUIT TOBACCO USE > 7 YEARS AGO quit 7-8 yrs ago [facility] [place] [facility] Sep 12, 2004 08:09 AM HISTORY OF SMOKING Smoke free since 1997 [facility] [place] [facility] Sep 13, 2003 08:34 AM HISTORY OF SMOKING [facility] [place] [facility] Sep 13, 2002 08:19 AM HISTORY OF SMOKING [facility] [place] [facility] Sep 15, 2001 08:49 AM HISTORY OF SMOKING [facility] [place] [facility] Sep 15, 2001 08:49 AM QUIT TOBACCO USE > 7 YEARS AGO [facility] [place] [facility] Sep 17, 2000 10:34 AM HISTORY OF SMOKING [facility] Encounter Notes: All associated encounter notes This [...] this VA (local) and dispensed from another [place] or DoD facility (remote) as well as [...] Remote Allergy/ADR Data available for this patient [place] [facility] [place] [facility] TYPHOID VACCINE Med [facility] (Tool #1) INCLUDED IN THIS LIST: Alphabetical list of active outpatient prescriptions dispensed from this VA (local) and dispensed from another [place] or DoD facility (remote) as well as inpatient orders (local pending and active), local clinic medications, locally documented non-VA medications, and local prescriptions that have or been discontinued in the past 90 days. Non-VA Meds Last Documented On: May 22, 2015 NOTE The display of VA prescriptions dispensed from another [place] or [facility] facility (remote) is limited to active outpatient prescription entries matched to National Drug File at the originating site and may not include some items such as investigational drugs, compounds, etc. NOT INCLUDED IN THIS LIST: Medications self-entered by the patient into personal health records (i.e. PERORA) are NOT included in this list. Non-VA medications documented outside this [place], remote inpatient orders (regardless of status) and remote clinic medications are NOT included in this list. The patient and provider must always discuss medications the patient is taking, regardless of where the medication was dispensed or obtained. OUTPT TRAZODONE HCL 100MG TAB (Status = Active) TAKE TWO TABLETS BY MOUTH AT BEDTIME Rx# [id number] Last Released: 04/27/24 Qty/Days Supply: 180/90 Rx Expiration Date: 04/23/25 Refills Remainin SUPPLIES Declines printed copy of medication list now. ^^^^^^^^^^^^^^^^^^^^^^^^^^^^^^ ^^^^^^^^^^^^^^^^^^^^^^^^^^^^^^ ^^^^^^^^^^^^^^^^^^^^ ^^^^^^^^^^^^^^^^^^^^^^^^^^^^^^ ^^^^^^^^^^^^^^^^^^^^^^^^^^^^^^ ^^^^^^^^^^^^^^^^^^^^ Alerting optometry health tech to order glasses as noted below. OD +1.25 -0.50 X5 Add:+2.50 Pzm:0.00 Dir: Prz2:0.00 Dir2: OS +0.75 -0.50 X75 Add:+2.50 Pzm:0.00 Dir: Prz2:0.00 Dir2: FITTING INFORMATION FPD:60.5 NPD:57.5 [place]:R: L: SEG HT:R:14 L:14 Tint:BROWN Shade:3 FRAME: [facility] 140 Right Lens: PLASTIC BIFOCAL FT28 1.498 PLASTIC CR39 Left Lens: PLASTIC BIFOCAL FT28 1.498 PLASTIC CR39 UV400 SOLID TINT RX INFORMATION OD +1.25 -0.50 X5 Add:+2.50 Pzm:0.00 Dir: Prz2:0.00 Dir2: OS +0.75 -0.50 X75 Add:+2.50 Pzm:0.00 Dir: Prz2:0.00 Dir2: FITTING INFORMATION FPD:60.5 NPD:57.5 [place]:R: L: SEG HT:R:13 L:13 Tint:None Shade:None FRAME: PT48 [facility] [id number] Right Lens: PLASTIC BIFOCAL FT28 1.498 PLASTIC [...] Lepe's cyst of knee 3. Hypercholesterolemia (SCT 05192324) 4. Memory impairment 5. Chronic rhinitis 6. Aneurysm, Aorta, Abdominal 7. Actinic Keratosis 8. Keratoconjunctivitis Sicca 9. family history colon of colon cancer 10. Overweight (SNOMED CT 726993231) 11. Insomnia (SNOMED CT 012029576) 12. Adenomatous polyp of colon (SNOMED CT 472470460) 13. Seborrheic Dermatitis, Unspecified Active Outpatient Medications [...] sun and clear - Pt will see financial developer to have glasses re-adjusted - monitor Return to Clinic 1yr or earlier PRN /blanca/ MARCELO GUZMAN OPTOMETRY STUDENT Signed: 09/08/2024 16:27 /blanca/ Philippe Estrada OD CHIEF OF OPTOMETRY Cosigned: 09/11/2024 12:19 PHILIPPE ESTRADA [facility] [place] [facility] Sep 08, 2024 12:53 PM OPTOMETRY NOTE: LOCAL TITLE: OPTOMETRY NOTE STANDARD TITLE: OPTOMETRY NOTE DATE OF NOTE: SEP 08, 2024@12:53 ENTRY DATE: SEP 08, 2024@12:54:07 AUTHOR: MARCELO GUZMAN EXP COSIGNER: PHILIPPE ESTRADA URGENCY: STATUS: COMPLETED OPTOMETRY NOTE Has ADDENDA Active problems - Computerized Problem List is the source for the followin. Impaired fasting glycemia 2. Lepe's cyst of knee 3. Hypercholesterolemia (SCT 44628802) 4. Memory impairment 5. Chronic rhinitis 6. Aneurysm, Aorta, Abdominal 7. Actinic Keratosis 8. Keratoconjunctivitis Sicca 9. family history colon of colon cancer 10. Overweight (SNOMED CT 495961120) 11. Insomnia (SNOMED CT 026179672) 12. Adenomatous polyp of colon (SNOMED CT 502886794) 13. Seborrheic Dermatitis, Unspecified Active Outpatient Medications [...] sun and clear - Pt will see financial developer to have glasses re-adjusted - monitor Return to Clinic 1yr or earlier PRN /es/ MARECLO GUZMAN OPTOMETRY STUDENT Signed: 09/08/2024 16:27 /blanca/ [...] this VA (local) and dispensed from another MD or [facility] facility (remote) as well as inpatient orders [...] Remote Allergy/ADR Data available for this patient [facility] TYPHOID VACCINE Med [facility] (Tool #1) INCLUDED IN THIS LIST: Alphabetical list of active outpatient prescriptions dispensed from this MD (local) and dispensed from another MD or [facility] facility (remote) as well as inpatient orders (local pending and active), local clinic medications, locally documented non-VA medications, and local prescriptions that have or been discontinued in the past 90 days. Non-VA Meds Last Documented On: May 22, 2015 NOTE The display of VA prescriptions dispensed from another MD or [facility]D facility (remote) is limited to active outpatient prescription entries matched to National Drug File at the originating site and may not include some items such as investigational drugs, compounds, etc. NOT INCLUDED IN THIS LIST: Medications self-entered by the patient into personal health records (i.e. [facility]ORA) are NOT included in this list. Non-VA medications documented outside this [place], remote inpatient orders (regardless of status) and remote clinic medications are NOT included in this list. The patient and provider must always discuss medications the patient is taking, regardless of where the medication was dispensed or obtained. OUTPT TRAZODONE HCL 100MG TAB (Status = Active) TAKE TWO TABLETS BY MOUTH AT BEDTIME Rx# [id number] Last Released: 04/27/24 Qty/Days Supply: 180/90 Rx Expiration Date: 04/23/25 Refills Remainin SUPPLIES Declines printed copy of medication list now. ^^^^^^^^^^^^^^^^^^^^^^^^^^^^^^ ^^^^^^^^^^^^^^^^^^^^^^^^^^^^^^ ^^^^^^^^^^^^^^^^^^^^ ^^^^^^^^^^^^^^^^^^^^^^^^^^^^^^ ^^^^^^^^^^^^^^^^^^^^^^^^^^^^^^ ^^^^^^^^^^^^^^^^^^^^ Alerting optometry health tech to order glasses as noted below. OD +1.25 -0.50 X5 Add:+2.50 Pzm:0.00 Dir: Prz2:0.00 Dir2: OS +0.75 -0.50 X75 Add:+2.50 Pzm:0.00 Dir: Prz2:0.00 Dir2: FITTING INFORMATION FPD:60.5 NPD:57.5 [place]:R: L: SEG HT:R:14 L:14 Tint:BROWN Shade:3 FRAME: [facility] [id number] Right Lens: PLASTIC BIFOCAL FT28 1.498 PLASTIC CR39 Left Lens: PLASTIC BIFOCAL FT28 1.498 PLASTIC CR39 UV400 SOLID TINT RX INFORMATION OD +1.25 -0.50 X5 Add:+2.50 Pzm:0.00 Dir: Prz2:0.00 Dir2: OS +0.75 -0.50 X75 Add:+2.50 Pzm:0.00 Dir: Prz2:0.00 Dir2: FITTING INFORMATION FPD:60.5 NPD:57.5 [place]:R: L: SEG HT:R:13 L:13 Tint:None Shade:None FRAME: [...] TECH 09/12/2024 ADDENDUM STATUS: COMPLETED Optometry Health Lot Boss ordered patient 2 pair(s) of bifocal eyeglasses on 09/09/2024 as directed by provider. OPT HT entered consult(s) for order on behalf of provider. /blanca/ ISMAEL OLMSTEAD OPTOMETRY TECH Signed: 09/12/2024 13:02 MARCELO GUZMAN [place] [facility] [place] [facility]
[2024-10-06 11:38] LABS: Syphilis Screen Nonreactive (Nonreactive)
[2024-10-06 11:40] LABS: Vitamin B12 440 pg/mL (200-900)
[2024-10-07 05:58] LABS: Lyme Abs Screen <0.90 index
== END 2024-10-06 09:56 | disposition home or self-care (01) ==
LOC: HO.LAB 09:55
PROVIDERS: PCP Internal Medicine; Visit Provider Psychiatry & Neurology Neurology
DX: G31.83 Neurocognitive disorder with Lewy bodies (principal)
CPT/HCPCS: 36415; 82607; 86617; 86618; 86780

== ENCOUNTER 2025-01-05 08:43 | Outpatient (AMB) | payer MEDICARE, OTHER, SELFPAY ==
--- OUTSIDE RECORDS SUMMARY | 2024-09-08 09:00 | XMS_ITS | Encounter Summary ---
Author Name [facility] [facility] [place] Address [address] [place] [address] Care Team Providers Care Pen Tender Name Role Phone JONI LEVI Primary Care Provider Unavailsherita e Insurance Providers: All historical and current Section Date Range: From patient's date of to the date document was created. This section includes the names of all active insurance providers for the patient. Insurance Provider Type of Coverage Plan Name Start of Policy Coverage End of Policy Coverage Group Number Member ID Insurance Provider's Telephone Number Policy Gonzalez's Name Patient's Relationship to Policy Gonzalez MEDICARE (WNR) MEDICARE ([place]) PART A Sep 14, 2011 PART A [id number] [phone] ROSIBEL MEHTA ERT PATIENT MEDICARE (WNR) MEDICARE (M) PART B Sep 14, 2011 PART B [id number] ROSIBEL MEHTA ERT PATIENT MEDICARE (WNR) MEDICARE (M) PART B Sep 14, 2011 PART B [id number] JANINE,ROSIBEL ERT PATIENT MEDICARE (WNR) MEDICARE (M) PART A Sep 14, 2011 PART A [id number] [phone] ROSIBEL MEHTA ERT PATIENT FOR LIFE TFL* Sep 14, 2011 [id number] ROSIBEL MEHTA ERT PATIENT ZZTRICARE (WNR) STAND PETER Dec 13, 1996 [facility] [id number] ROSIBEL MEHTA ERT PATIENT Selected Encounter This section includes the information on record at [place] for the Encounter. Date/Time Encounter Type Encounter Description Reason Provider Source Sep 08, 2024 01:00 PM OFFICE O/P EST MOD 30 MIN OPTOMETRY ICD-10-CM L71.8 Other rosacea XIOMARA ESTRADAEL Cristina IHE Encounter Template Text not used by [place] Assessments - Encounter Diagnoses This section includes the primary and secondary diagnoses documented for the Encounter. Date/Time Primary/Secondary Diagnosis Diagnosis Name Provider Source Sep 11, 2024 12:18 PM PRIMARY Other rosacea NATALIEDG Cristina [facility] [place] [facility] Sep 11, 2024 12:18 PM SECONDARY Combined forms of age-related cataract, bilateral DG ESTRADA Cristina [facility] [place] [facility] Sep 11, 2024 12:18 PM SECONDARY Dry eye syndrome of bilateral lacrimal glands NATALIEDG Cristina [facility] [place] [facility] Sep 11, 2024 12:18 PM SECONDARY Oth disorders of optic nerve, NEC, bilateral DG ESTRADA [facility] [place] [facility] Sep 11, 2024 12:18 PM SECONDARY Posterior subcapsular polar age-related cataract, right eye DG ESTRADA Cristina [facility] [place] [facility] Sep 11, 2024 12:18 PM SECONDARY Rosacea conjunctivitis, bilateral DG ESTRADA Cristina [facility] [place] [facility] Sep 11, 2024 12:18 PM SECONDARY Unspecified blepharitis left upper eyelid DG ESTRADA Cristina [facility] [place] [facility] Sep 11, 2024 12:18 PM SECONDARY Unspecified blepharitis right upper eyelid DG ESTRADA [facility] [place] [facility] Plan of Treatment: Future Appointments (+ 6 months) and Future Tests (+/- 45 days) The Plan of Treatment section includes future care activities for the patient from all [place] treatmentfacilities. This section includes future appointments and future orders which are active, pending or scheduled. Future Appointments This section includes appointments that were scheduled to occur 6 months from the date of the Encounter, up to a maximum of 20 appointments. The data comes from all [place] treatment facilities. Appointment Date/Time Appointment Type Appointme nt Facility Name Feb 24, 2025 09:00 AM [place]ULAT[place] [facility] [place] [facility] Social History: Smoking Status (Most current) and Tobacco Use (All prior to encounter date) This section includes the most current, and the historical, smoking and tobacco- related health factors from the [place] facility where the Encounter took place. Current Smoking Status This section includes the most current smoking, or tobacco-related health factor, from the [place] facility where the Encounter took place. Date/Time Current Smoking Status Comment Facil it Feb 24, 2024 09:00 AM [place]BACCO FORMER USER [place] [facility] Tobacco Use History This section includes a history of the smoking, or tobacco-related health factors, that were collected on or before the date of the Encounter. The data comes from the [place] facility where the Encounter took place. Date/Time Smoking Status/Tobac co Use Comment Facility Feb 24, 2024 09:00 AM VA-TOBACCO QUIT 5 TO < 15 YRS [facility] [place] [facility] Feb 23, 2023 08:30 AM VA-TOBACCO FORMER USER [facility] [place] [facility] Feb 23, 2023 08:30 AM VA-TOBACCO QUIT 5 TO < 15 YRS [facility] [place] [facility] Feb 21, 2022 08:30 AM VA-TOBACCO FORMER USER [facility] [place] [facility] Feb 21, 2022 08:30 AM VA-TOBACCO QUIT 5 TO < 15 YRS [facility] [place] [facility] Feb 15, 2021 08:00 AM VA-TOBACCO FORMER USER [facility] [place] [facility] Feb 15, 2021 08:00 AM VA-TOBACCO QUIT 5 TO < 15 YRS [facility] [place] [facility] Feb 14, 2020 10:30 AM VA-TOBACCO FORMER USER [facility] [place] [facility] Feb 14, 2020 10:30 AM VA-TOBACCO QUIT 5 TO < 15 YRS [facility] [place] [facility] Aug 09, 2018 10:15 AM VA-TOBACCO NEVER USED [facility] [place] [facility] Oct 07, 2017 09:04 AM QUIT TOBACCO USE > 7 YEARS AGO pt quit 7 yrs ago [facility] [place] [facility] Sep 24, 2016 10:34 AM QUIT TOBACCO USE > 7 YEARS AGO [facility] [place] [facility] May 22, 2015 10:32 AM QUIT TOBACCO USE > 7 YEARS AGO quit 7-8 yrs ago [facility] [place] [facility] Sep 12, 2004 08:09 AM HISTORY OF SMOKING Smoke free since 1997 [place] [facility] [place] [facility] Sep 13, 2003 08:34 AM HISTORY OF SMOKING [facility] [place] [facility] Sep 13, 2002 08:19 AM HISTORY OF SMOKING [facility] [place] [facility] Sep 15, 2001 08:49 AM HISTORY OF SMOKING [facility] [place] [facility] Sep 15, 2001 08:49 AM QUIT TOBACCO USE > 7 YEARS AGO [facility] [place] [facility] Sep 17, 2000 10:34 AM [place]MOKING [place] [facility] Encounter Notes: All associated encounter notes This section contains the clinical notes associated to the Encounter. Date/Time Encounter Note(s) Provider Source Sep 11, 2024 12:35 PM ADDENDUM: LOCAL TITLE: Addendum STANDARD TITLE: ADDENDUM DATE OF NOTE: SEP 11, 2024@12:35:05 ENTRY DATE: SEP 11, 2024@12:35:06 AUTHOR: PHILIPPE ESTRADA COSIGNER: URGENCY: STATUS: COMPLETED I saw this patient in conjunction with the student and agree with the stated findings and plan as noted below after reviewing both the history and repeating martines elements of the physical exam. Patient well-known to me last seen here April 21, 2023 returns today for examination. He has previously undergone excision of a basal cell carcinoma left lower lid without evidence of reoccurrence. 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 Continue Restasis twice a day each eye with recommendation for lid scrubs daily each eye as well for chronic blepharitis right and left upper lid. Bilateral nuclear sclerotic and cortical cataracts with early PSC changes right eye as well. Order new bifocals clear and sun now. 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 Larger disc size with moderate, healthy stable optic nerve cupping without evidence of pseudoexfoliation or pigment dispersion either eye. Previous pachymetry is slightly thinner than average but with IOP's which remain in the mid teens. Plan: Patient education as noted above. Review all exam findings now. Continue Restasis twice a day each eye for bilateral dry eye disease. Start lid scrubs daily for chronic blepharitis right and left upper lid. Order new glasses today bifocals clear and sun. Return in 12 months or sooner if need be. Ophthalmic medication reconciliation: Restasis 1 drop twice a day each eye. Medication Reconciliation: Outpatient: Has the patient been taking medications as documented in the EMLR? YES: The patient has been taking medications as documented in the EMLR. Essential Medication List for Review used to complete this medication reconciliation. INCLUDED IN THIS LIST: Alphabetical list of active outpatient prescriptions dispensed from this VA (local) and dispensed from another [place] or [facility] facility (remote) as well as inpatient orders (local, pending and active), local clinic medications, locally documented non-VA medications, and local prescriptions that have or been discontinued in the past 90 days. - All changes in medications, including all non-VA/Herbal/OTC medications were entered into CPRS. - If there were any medications the patient should no longer take, they were discontinued. - The patient/caregiver was instructed to update this list, discard old lists, and take this list to the next appointment, whether with a VA or non-VA provider. JLV Link Data on this list may not be complete. Please check JLV. Allergies/ADRs (Tool #5) FACILITY ALLERGY/ADR -------- No Remote Allergy/ADR Data available for this patient [place] [facility] [place] [facility] TYPHOID VACCINE Med [facility] (Tool #1) INCLUDED IN THIS LIST: Alphabetical list of active outpatient prescriptions dispensed from this VA (local) and dispensed from another [place] or [facility] facility (remote) as well as inpatient orders (local pending and active), local clinic medications, locally documented non-VA medications, and local prescriptions that have or been discontinued in the past 90 days. Non-VA Meds Last Documented On: May 22, 2015 NOTE The display of VA prescriptions dispensed from another [place] or [facility] facility (remote) is limited to active outpatient prescription entries matched to National Drug File at the originating site and may not include some items such as investigational drugs, compounds, etc. NOT INCLUDED IN THIS LIST: Medications self-entered by the patient into personal health records (i.e. [employer]) are NOT included in this list. Non-VA medications documented outside this [place], remote inpatient orders (regardless of status) and remote clinic medications are NOT included in this list. The patient and provider must always discuss medications the patient is taking, regardless of where the medication was dispensed or obtained. OUTPT TRAZODONE HCL 100MG TAB (Status = Active) TAKE TWO TABLETS BY MOUTH AT BEDTIME Rx# [id number] Last Released: 04/27/24 Qty/Days Supply: 180/90 Rx Expiration Date: 04/23/25 Refills Remainin SUPPLIES Declines printed copy of medication list now. ^^^^^^^^^^^^^^^^^^^^^^^^^^^^^^ ^^^^^^^^^^^^^^^^^^^^^^^^^^^^^^ ^^^^^^^^^^^^^^^^^^^^ ^^^^^^^^^^^^^^^^^^^^^^^^^^^^^^ ^^^^^^^^^^^^^^^^^^^^^^^^^^^^^^ ^^^^^^^^^^^^^^^^^^^^ Alerting optometry health tech to order glasses as noted below. OD +1.25 -0.50 X5 Add:+2.50 Pzm:0.00 Dir: Prz2:0.00 Dir2: OS +0.75 -0.50 X75 Add:+2.50 Pzm:0.00 Dir: Prz2:0.00 Dir2: FITTING INFORMATION FPD:60.5 NPD:57.5 Sargent:R: L: SEG HT:R:14 L:14 Tint:BROWN Shade:3 FRAME: [facility] 140 Right Lens: PLASTIC BIFOCAL FT28 1.498 PLASTIC CR39 Left Lens: PLASTIC BIFOCAL FT28 1.498 PLASTIC CR39 UV400 SOLID TINT RX INFORMATION OD +1.25 -0.50 X5 Add:+2.50 Pzm:0.00 Dir: Prz2:0.00 Dir2: OS +0.75 -0.50 X75 Add:+2.50 Pzm:0.00 Dir: Prz2:0.00 Dir2: FITTING INFORMATION FPD:60.5 NPD:57.5 Sargent:R: L: SEG HT:R:13 L:13 Tint:None Shade:None [id number] Right Lens: PLASTIC BIFOCAL FT28 1.498 PLASTIC CR39 Left Lens: PLASTIC BIFOCAL FT28 1.498 PLASTIC CR39 KLEAR ANTI-REFLECTIVE COATING Medical Necessity (required) for Photophobia ^^^^^^^^^^^^^^^^^^^^^^^^^^^^^^ ^^^^^^^^^^^^^^^^^^^^^^^^^^^^^^ ^^^^^^^^^^^^^^^^^^^^ ^^^^^^^^^^^^^^^^^^^^^^^^^^^^^^ ^^^^^^^^^^^^^^^^^^^^^^^^^^^^^^ ^^^^^^^^^^^^^^^^^^^^ Total time spent chart review, history, examining and counseling patient as well as entering orders with medical decision makin minutes -3 minutes for refraction equals 31 minutes /es/ Philippe Estrada OD CHIEF OF OPTOMETRY Signed: 09/11/2024 12:43 Receipt Acknowledged By: 09/12/2024 12:59 /es/ ISMAEL OLMSTEAD OPTOMETRY TECH --- Original Document --- 09/08/24 OPTOMETRY NOTE: Active problems - Computerized Problem List is the source for the followin. Impaired fasting glycemia 2. Lepe's cyst of knee 3. Hypercholesterolemia (SCT 78935035) 4. Memory impairment 5. Chronic rhinitis 6. Aneurysm, Aorta, Abdominal 7. Actinic Keratosis 8. Keratoconjunctivitis Sicca 9. family history colon of colon cancer 10. Overweight (SNOMED CT 486210097) 11. Insomnia (SNOMED CT 129741880) 12. Adenomatous polyp of colon (SNOMED CT 366133557) 13. Seborrheic Dermatitis, Unspecified Active Outpatient Medications (including Supplies): Active Outpatient Medications Status 1) TRAZODONE HCL 100MG TAB TAKE TWO TABLETS BY MOUTH AT BEDTIME ACTIVE Allergies: TYPHOID VACCINE All medications including those prescribed by outside VA's, community providers, and all OTC meds were reviewed and reconciled with patient to the best of their abilities. This 78 year old MALE is seen today for annual CEE KIMBERLY: 04/23/23 Chief Complaint: Denied any vision changes or ocular health concerns OHx: 1. Facial and bilateral ocular rosacea - on Restasis BID 2. Combined cataracts OU 3. RE and presbyopia Ocular Medications: Restasis once per day (-) Pain: (-) SMITH: (-) Diplopia: (-) Flashes: (-) Floaters: (-) Amaurosis Fugax/Tia's: (-) Eye Injury: (-) Eye Surgery: (-) TBI FOHx: (-) Glaucoma/ARMD/Blindness VITALS (most recent, as listed in the electronic record): B/P: 118/74 (02/24/2024 09:15) Pulse: 80 (02/24/2024 08:49) Temperature: 98.1 F [36.7 C] (02/24/2024 08:49) Weight: 165 lb [74.84 kg] (02/24/2024 08:49) Height: 67 in [170.2 cm] (02/24/2024 08:49) BMI: BMI: 25.9 PERTINENT LABS: HEMOGLOBIN A1C TREND Collection DT Spec HGBA1c 09/16/2007 10:04 BLOOD 5.8 (-) Smoker/Length of Time/PPD: Current Rx with last BCVA: OD: +1.25-0.50 x005 20/25 OS: +0.75-0.50 x075 20/25+2 ADD:+2.50 DVA ( )sc ( x )cc - phoropter OD: 20/25 OS: 20/20-2 Pupils: PERRL (-)APD EOMs: SAFE OU, (-)Pain/Diplopia CVF (facial, peripheral): FTFC OU Subjective Refraction: NI OD: +1.25-0.50 x005 20/25 OS: +0.50-0.25 x060 20/25+2 Add:+2.50 20/20- Final SRx: no change OD: +1.25-0.50 x005 OS: +0.75-0.50 x075 ADD:+2.50 All the above performed by student, reviewed by attending Anterior segment: Performed by student, repeated by attending Lids: 2+ blepharitis OU Conj: white and quiet OU Cornea: Arcus OU (-)k spindle OU AC: D&Q OU Angles: 4x4 OU Iris: flat and clear OU Lens: 2 NSC OU with 1+-2 ACC with trc PSC OD and trc-1 ACC OS (-)PXF OU Tonometry: Performed by student, reviewed by attending [ x] GAT [ ] iCare OD 14 mmHg OS 16 mmHg Time: 13:05 Last IOP OD: 13 OS: 15 Fundus exam: Dilated: xxxx Non dilated: Dilating Drops: 1GTT 1 % Tropicamide OU & 1GTT 2.5% Phenylephrine OU (Pt. ed. on side effects, dilation warning given and verbal consent obtained) Patient advised not to drive if they feel they have any symptoms which could affect their ability to drive safely. Patient advised not to engage in any activities which could put themselves or others at risk if they feel they have any symptoms which could affect their ability to perform those activities safely. Performed by student, repeated by attending Vit: PVD OU C/D: Larger disc size OU with 0.55 OD and 0.50 OS pink & healthy rim tissue OU Macula: flat and clear OU PPole: clear OU A/V: 2/3 Vessels: normal caliber OU Periph: flat and intact (-) holes, tears, detachments 360 OU Assessment/Plan: 1. Facial and bilateral ocular rosacea with blepharitis OU - Pt ed about findings - Continue Restasis BID OU - Gave a sample box of lid scrubs to use at least once daily OU - Monitor 2. Combined Form Cataracts OU - Pt. ed. on findings - cataracts are not visually significant and that surgery is not necessary at this time - Ed. on importance of UV protection and on symptoms of glare - Continue to monitor 3. Regular astigmatism and presbyopia - Stable - Ordering duplication for bifocal sun and clear - Pt will see therapeutic consultant to have glasses re-adjusted - monitor Return to Clinic 1yr or earlier PRN /blanca/ MARCELO GUZMAN OPTOMETRY STUDENT Signed: 09/08/2024 16:27 /blanca/ Philippe Estrada OD CHIEF OF OPTOMETRY Cosigned: 09/11/2024 12:19 PHILIPPE ESTRADA [place] [facility] [place] [facility] Sep 08, 2024 12:53 PM OPTOMETRY NOTE: LOCAL TITLE: OPTOMETRY NOTE STANDARD TITLE: OPTOMETRY NOTE DATE OF NOTE: SEP 08, 2024@12:53 ENTRY DATE: SEP 08, 2024@12:54:07 AUTHOR: MARCELO GUZMAN EXP COSIGNER: PHILIPPE ESTRADA URGENCY: STATUS: COMPLETED OPTOMETRY NOTE Has ADDENDA Active problems - Computerized Problem List is the source for the followin. Impaired fasting glycemia 2. Lepe's cyst of knee 3. Hypercholesterolemia (SCT 70648967) 4. Memory impairment 5. Chronic rhinitis 6. Aneurysm, Aorta, Abdominal 7. Actinic Keratosis 8. Keratoconjunctivitis Sicca 9. family history colon of colon cancer 10. Overweight (SNOMED CT 450544908) 11. Insomnia (SNOMED CT 674813275) 12. Adenomatous polyp of colon (SNOMED CT 572109444) 13. Seborrheic Dermatitis, Unspecified Active Outpatient Medications (including Supplies): Active Outpatient Medications Status 1) TRAZODONE HCL 100MG TAB TAKE TWO TABLETS BY MOUTH AT BEDTIME ACTIVE Allergies: TYPHOID VACCINE All medications including those prescribed by outside VA's, community providers, and all OTC meds were reviewed and reconciled with patient to the best of their abilities. This 78 year old MALE is seen today for annual CEE KIMBERLY: 04/23/23 Chief Complaint: Denied any vision changes or ocular health concerns OHx: 1. Facial and bilateral ocular rosacea - on Restasis BID 2. Combined cataracts OU 3. RE and presbyopia Ocular Medications: Restasis once per day (-) Pain: (-) SMITH: (-) Diplopia: (-) Flashes: (-) Floaters: (-) Amaurosis Fugax/Tia's: (-) Eye Injury: (-) Eye Surgery: (-) TBI FOHx: (-) Glaucoma/ARMD/Blindness VITALS (most recent, as listed in the electronic record): B/P: 118/74 (02/24/2024 09:15) Pulse: 80 (02/24/2024 08:49) Temperature: 98.1 F [36.7 C] (02/24/2024 08:49) Weight: 165 lb [74.84 kg] (02/24/2024 08:49) Height: 67 in [170.2 cm] (02/24/2024 08:49) BMI: BMI: 25.9 PERTINENT LABS: HEMOGLOBIN A1C TREND Collection DT Spec HGBA1c 09/16/2007 10:04 BLOOD 5.8 (-) Smoker/Length of Time/PPD: Current Rx with last BCVA: OD: +1.25-0.50 x005 20/25 OS: +0.75-0.50 x075 20/25+2 ADD:+2.50 DVA ( )sc ( x )cc - phoropter OD: 20/25 OS: 20/20-2 Pupils: PERRL (-)APD EOMs: SAFE OU, (-)Pain/Diplopia CVF (facial, peripheral): FTFC OU Subjective Refraction: NI OD: +1.25-0.50 x005 20/25 OS: +0.50-0.25 x060 20/25+2 Add:+2.50 20/20- Final SRx: no change OD: +1.25-0.50 x005 OS: +0.75-0.50 x075 ADD:+2.50 All the above performed by student, reviewed by attending Anterior segment: Performed by student, repeated by attending Lids: 2+ blepharitis OU Conj: white and quiet OU Cornea: Arcus OU (-)k spindle OU AC: D&Q OU Angles: 4x4 OU Iris: flat and clear OU Lens: 2 NSC OU with 1+-2 ACC with trc PSC OD and trc-1 ACC OS (-)PXF OU Tonometry: Performed by student, reviewed by attending [ x] GAT [ ] iCare OD 14 mmHg OS 16 mmHg Time: 13:05 Last IOP OD: 13 OS: 15 Fundus exam: Dilated: xxxx Non dilated: Dilating Drops: 1GTT 1 % Tropicamide OU & 1GTT 2.5% Phenylephrine OU (Pt. ed. on side effects, dilation warning given and verbal consent obtained) Patient advised not to drive if they feel they have any symptoms which could affect their ability to drive safely. Patient advised not to engage in any activities which could put themselves or others at risk if they feel they have any symptoms which could affect their ability to perform those activities safely. Performed by student, repeated by attending Vit: PVD OU C/D: Larger disc size OU with 0.55 OD and 0.50 OS pink & healthy rim tissue OU Macula: flat and clear OU PPole: clear OU A/V: 2/3 Vessels: normal caliber OU Periph: flat and intact (-) holes, tears, detachments 360 OU Assessment/Plan: 1. Facial and bilateral ocular rosacea with blepharitis OU - Pt ed about findings - Continue Restasis BID OU - Gave a sample box of lid scrubs to use at least once daily OU - Monitor 2. Combined Form Cataracts OU - Pt. ed. on findings - cataracts are not visually significant and that surgery is not necessary at this time - Ed. on importance of UV protection and on symptoms of glare - Continue to monitor 3. Regular astigmatism and presbyopia - Stable - Ordering duplication for bifocal sun and clear - Pt will see therapeutic consultant to have glasses re-adjusted - monitor Return to Clinic 1yr or earlier PRN /es/ MARCELO GUZMAN OPTOMETRY STUDENT Signed: 09/08/2024 16:27 /blanca/ Philippe Estrada OD CHIEF OF OPTOMETRY Cosigned: 09/11/2024 12:19 09/11/2024 ADDENDUM STATUS: COMPLETED I saw this patient in conjunction with the student and agree with the stated findings and plan as noted below after reviewing both the history and repeating martines elements of the physical exam. Patient well-known to me last seen here April 21, 2023 returns today for examination. He has previously undergone excision of a basal cell carcinoma left lower lid without evidence of reoccurrence. 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 Continue Restasis twice a day each eye with recommendation for lid scrubs daily each eye as well for chronic blepharitis right and left upper lid. Bilateral nuclear sclerotic and cortical cataracts with early PSC changes right eye as well. Order new bifocals clear and sun now. 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 Larger disc size with moderate, healthy stable optic nerve cupping without evidence of pseudoexfoliation or pigment dispersion either eye. Previous pachymetry is slightly thinner than average but with IOP's which remain in the mid teens. Plan: Patient education as noted above. Review all exam findings now. Continue Restasis twice a day each eye for bilateral dry eye disease. Start lid scrubs daily for chronic blepharitis right and left upper lid. Order new glasses today bifocals clear and sun. Return in 12 months or sooner if need be. Ophthalmic medication reconciliation: Restasis 1 drop twice a day each eye. Medication Reconciliation: Outpatient: Has the patient been taking medications as documented in the EMLR? YES: The patient has been taking medications as documented in the EMLR. Essential Medication List for Review used to complete this medication reconciliation. INCLUDED IN THIS LIST: Alphabetical list of active outpatient prescriptions dispensed from this [facility] (local) and dispensed from another VA or [facility] facility (remote) as well as inpatient orders (local, pending and active), local clinic medications, locally documented non-VA medications, and local prescriptions that have or been discontinued in the past 90 days. - All changes in medications, including all non-VA/Herbal/OTC medications were entered into CPRS. - If there were any medications the patient should no longer take, they were discontinued. - The patient/caregiver was instructed to update this list, discard old lists, and take this list to the next appointment, whether with a VA or non-VA provider. JLV Link Data on this list may not be complete. Please check JLV. Allergies/ADRs (Tool #5) FACILITY ALLERGY/ADR -------- No Remote Allergy/ADR Data available for this patient [place] [facility] TYPHOID VACCINE Med [facility] (Tool #1) INCLUDED IN THIS LIST: Alphabetical list of active outpatient prescriptions dispensed from this [place] (local) and dispensed from another [place] or [facility] facility (remote) as well as inpatient orders (local pending and active), local clinic medications, locally documented non-VA medications, and local prescriptions that have or been discontinued in the past 90 days. Non-VA Meds Last Documented On: May 22, 2015 NOTE The display of VA prescriptions dispensed from another [place] or [facility] facility (remote) is limited to active outpatient prescription entries matched to National Drug File at the originating site and may not include some items such as investigational drugs, compounds, etc. NOT INCLUDED IN THIS LIST: Medications self-entered by the patient into personal health records (i.e. [facility]) are NOT included in this list. Non-VA medications documented outside this [place], remote inpatient orders (regardless of status) and remote clinic medications are NOT included in this list. The patient and provider must always discuss medications the patient is taking, regardless of where the medication was dispensed or obtained. OUTPT TRAZODONE HCL 100MG TAB (Status = Active) TAKE TWO TABLETS BY MOUTH AT BEDTIME Rx# [id number] Last Released: 04/27/24 Qty/Days Supply: 180/90 Rx Expiration Date: 04/23/25 Refills Remainin SUPPLIES Declines printed copy of medication list now. ^^^^^^^^^^^^^^^^^^^^^^^^^^^^^^ ^^^^^^^^^^^^^^^^^^^^^^^^^^^^^^ ^^^^^^^^^^^^^^^^^^^^ ^^^^^^^^^^^^^^^^^^^^^^^^^^^^^^ ^^^^^^^^^^^^^^^^^^^^^^^^^^^^^^ ^^^^^^^^^^^^^^^^^^^^ Alerting optometry health tech to order glasses as noted below. OD +1.25 -0.50 X5 Add:+2.50 Pzm:0.00 Dir: Prz2:0.00 Dir2: OS +0.75 -0.50 X75 Add:+2.50 Pzm:0.00 Dir: Prz2:0.00 Dir2: FITTING INFORMATION FPD:60.5 NPD:57.5 Sargent:R: L: SEG HT:R:14 L:14 Tint:BROWN Shade:3 FRAME: [facility] 20-50-864 Right Lens: PLASTIC BIFOCAL FT28 1.498 PLASTIC CR39 Left Lens: PLASTIC BIFOCAL FT28 1.498 PLASTIC CR39 UV400 SOLID TINT RX INFORMATION OD +1.25 -0.50 X5 Add:+2.50 Pzm:0.00 Dir: Prz2:0.00 Dir2: OS +0.75 -0.50 X75 Add:+2.50 Pzm:0.00 Dir: Prz2:0.00 Dir2: FITTING INFORMATION FPD:60.5 NPD:57.5 Sargent:R: L: SEG HT:R:13 L:13 Tint:None Shade:None FRAME: PT48 GUNMETAL 54-19-140 Right Lens: PLASTIC BIFOCAL FT28 1.498 PLASTIC CR39 Left Lens: PLASTIC BIFOCAL FT28 1.498 PLASTIC CR39 KLEAR ANTI-REFLECTIVE COATING Medical Necessity (required) for Photophobia ^^^^^^^^^^^^^^^^^^^^^^^^^^^^^^ ^^^^^^^^^^^^^^^^^^^^^^^^^^^^^^ ^^^^^^^^^^^^^^^^^^^^ ^^^^^^^^^^^^^^^^^^^^^^^^^^^^^^ ^^^^^^^^^^^^^^^^^^^^^^^^^^^^^^ ^^^^^^^^^^^^^^^^^^^^ Total time spent chart review, history, examining and counseling patient as well as entering orders with medical decision makin minutes -3 minutes for refraction equals 31 minutes /blanca/ Philippe Estrada OD CHIEF OF OPTOMETRY Signed: 09/11/2024 12:43 Receipt Acknowledged By: 09/12/2024 12:59 /blanca/ ISMAEL OLMSTEAD OPTOMETRY TECH 09/12/2024 ADDENDUM STATUS: COMPLETED [facility]ometry [facility] [employer] Technology Teacher ordered patient 2 pair(s) of bifocal eyeglasses on 09/09/2024 as directed by provider. OPT HT entered consult(s) for order on behalf of provider. /blanca/ ISMAEL OLMSTEAD OPTOMETRY TECH Signed: 09/12/2024 13:02 MARCELO GUZMAN [place] [facility]
--- NOTE | 2025-01-05 08:56 | MHC.OFFVIS ---
Intake Visit Reasons: 3 mnts Allergies typhoid injection Allergy (Unknown, Uncoded 08/08/24 21:42) Unknown Medication List - Last Reconciled 01/05/25 by Alexx You MD ammonium lactate 12% 1 appl topical BID PRN carbidopa-levodopa 25-100 mg 1 tab PO BID donepezil 10 mg PO DAILY ketoconazole 2% 1 appl topical BID PRN memantine 10 mg PO BID mirtazapine 15 mg PO QPM quetiapine 25 mg PO BEDTIME risperidone 0.25 mg PO BID@1700,1999 tacrolimus 0.1% 1 appl topical BID PRN HPI Comments Details: 79 years old man with parkinsonism/dementia complex with behavioral symptomatology suggestive of dementia with Lewy body disease. His family stated that he was okay until about 2022. In July of 2024 he was seen at [facility] when he presented with hallucinations. He was also having delusional thoughts when he was blaming his for things that she did not do. He also had argumentative behavior. More recently he was doing better but anger was still an issue. This was an issue on daily basis. He was getting upset about his overall situation. His sleep was better. Mood was better and behavior was also relatively control with medicines. [facility] Medical History (Updated 01/05/25 @ 09:01 by Alexx You MD) Dementia with Lewy bodies Social History Advance Directives Date on File: 08/09/24 Review of Systems Const Details: Constitutional:?No fever, chills, fatigue, weight loss, or night sweats. HEENT:?No headache, vision changes, hearing loss, nasal congestion, sore throat. Neurological:? Forgetfulness Psychiatric:? Anxiety in hallucinations Endocrine:?No heat/cold intolerance, polydipsia, polyuria, or hair/skin changes. Hematologic/Lymphatic:?No easy bruising, bleeding, or lymphadenopathy. Integumentary (Skin):?No rash, lesions, itching, or color changes. ? Physical Exam Neuro Other: Mental Status: Alert and oriented to person, place, and time. Normal attention. Normal spontaneous speech, fluency, and comprehension. Cranial Nerves: CN II: Visual lipscomb full to confrontation, visual acuity intact. CN III, IV, : Pupils equal, round, reactive to light and accommodation. Extraocular movements are normal. CN V: Facial sensation is normal. CN VII: Facial movements symmetrical. CN VIII: Hearing intact to bedside conversation is normal. CN IX, X: Palate elevates symmetrically. CN XI: Shoulder shrug and head turn symmetrical. CN XII: Tongue midline without atrophy or fasciculations. Extrapyramidal: Full facial expressions and blinking. No rigidity. Movements are appropriate with no tremor or abnormality. Speech: Normal; no dysarthria or tremor. Assessment & Plan Assessment & Plan (1) Lewy body dementia with behavioral disturbance: Comment[place] [facility] [place]: Mild to mod diff atrophy, mild to mod MVD Code(s): G31.83 - Neurocognitive disorder with Lewy bodies; F02.818 - Dementia in other diseases classified elsewhere, unspecified severity, with other behavioral disturbance Category: Medical Plan Impression: Dementia/parkinsonism complex with behavioral symptomatology suggestive of dementia with Lewy body disease Recommendations: 1. Carbidopa levodopa 25/100 1 tablet twice a day, in the morning and noontime 2. Memantine 10 mg twice a day 3. Donepezil 10 mg a day 4. Quetiapine 25 mg at bedtime 5. Sertraline 25mg a day 6. Regular exposure to broad daylight and outside environment Medications: New memantine 10 mg PO BID 180 tabs 1RF sertraline 25 mg PO DAILY 90 tabs 1RF Refilled donepezil 10 mg PO DAILY 90 tabs 1RF quetiapine 25 mg PO BEDTIME 90 tabs 1RF Coding Level of Care Code Tele Est Pt Level 4 (09842) Diagnoses Lewy body dementia with behavioral disturbance G31.83; F02.818
--- OUTSIDE RECORDS SUMMARY | 2025-01-05 09:08 | XMS_ITS | Encounter Summary ---
Author Organization [facility] Address [address] [place] [id number] Phone Care Team Providers Care Asphalt Layer Name Role Phone Haider Varela MD Unavailable Haider Varela MD Primary Care Provider [phone] Encounter Details Date Type Department Care Team (Late Contact Info) Description 03/21/2022 Procedure Pass [facility], Ct Scan - [address] [address] Social History Tobacco Use Types Packs/Day Years Used Date Smoking Tobacco: Former Cigarettes 1 25 1 07/14/1983 - 05/14/2009 Smokeless Tobacco: Never Alcohol Use Standard Drinks/Week Comments Not Currently 0 (1 standard drink = 0.6 oz pur e alcohol) stopped drinking 09/2021 Sex and Gender Information Value Date Recorded Sex Assigned at Not on file Legal Sex Male 10:07 PM EDT Gender Identity Not on file Sexual Orientation Not on file documented as of this encounter Plan of Treatment Upcoming Encounters Date Type Department Care Team (Late Contact Info) Description 01/18/2025 4:30 PM EDT Office Visit [facility] [address] [place] [address] Haider Varela MD [address] [place] [address] documented as of this encounter Visit Diagnoses Not on filedocumented in this encounter Additional Health Concerns Assessment Noted Time PHQ-2 Depression Total Score: 0 09/21/19 10:51 AM EDT documented as of this encounter Care Teams Asphalt Layer Relationship Specialty Start Date End Date Haider Varela MD [address] [place] [address] PCP - General 06/18/17 Haider Varela MD [address] [place] [address] Historical LMR Provider 04/02/17 documented as of this encounter Additional Source Comments The information contained in this document represents components of the legal health record. It is not the complete legal health record.[facility]
--- OUTSIDE RECORDS SUMMARY | 2025-01-05 09:09 | XMS_ITS | Patient Health Record ---
Author Organization [facility] Address [address] [place] [address] Care Team Providers Care Flooring Machine Operator Name Role Phone Haider Varela MD Primary Care Provider Robert Moser Jr Unavailable [phone] Allergies Allergen (clinical drug ingredient) Drug/Non Drug Allergy documented on EMR Reaction Allergy Type Onset Date Status Typhoid Vaccine Unknown Drug Allergy A ctive Reason For Referral No Information Medications Medication SIG (Take, Route, Frequency, Duration) Notes Start Date End Date Status Multi Vitamin/Minerals - as directed Ora lly once a day Active Restasis 0.05 % 1 drop into affected eye Ophthalmic Twice a day Active Atorvastatin Calcium 40 MG 1 tablet Oral ly Once a day for 30 day(s) Active Magnesium 250 MG 1 tablet with a meal Orally Once a day for 30 day(s) Active traZODone HCl 100 MG 1 tablet at bedtime Orally Once a day for 30 day(s) Active Omeprazole 40 MG 1 capsule Orally Onc e a day for 30 day(s) Active Citalopram Hydrobromide 20 MG 1 tablet Orally Once a day for 30 day(s) Active Donepezil HCl 10 MG 1 tablet at bedtime Orally Once a day Active Immunizations Vaccine Route Administration Date Status Comme nts Influenza Unknown 02/10/2019 Administered Social History Tobacco Use: Social History Observation Description Date Details (start date - stop date) Former Smoker NA - NA Tobacco Use/Smoking Question Answer Notes Patient is a former smoker How long has it been since you last smoked? 5-10 years Alcohol Screen Question Answer Notes Did you have a drink contain ing alcohol in the past year? Yes How often did you have a dri nk containing alcohol in the past year? Monthly or less (1 point) How many drinks did you have on a typical day when you were drinking in the past year? 1 or 2 drinks (0 point) How often did you have 6 or more drinks on one occasion in the past year? Never (0 point) Points 1 Interpretation Negative Problems Problem Type SNOMED Code ICD Code Onset Dates Problem Status W/U Status Risk Notes Problem 333870084 Colon cancer screening (Z12.11) Active confirmed Problem 193885141 Family history of colon cancer (Z80.0) Active confirmed Plan Of Treatment Future Test Test Name Order Date COLONOSCOPY 02/16/2019 Insurance Providers Payer Name Payer Address Payer Phone Subscriber Number Group Number Insured Name Patient Relationship to Insured Coverage Start Date Coverage End Date MEDICARE OF [place] [address] [place], [place] [id number] [phone] [id number] KALLIE MEHTA Self - patient is the insured FOR LIFE [address] [place] [address] [id number] KALLIE MEHTA Self - patient is the insured Medical (General) History Medical History History ICD Code gastroesophageal reflux disease insomnia dry eyes elevated cholesterol memory issues depression Surgical History Surgery Date(Month/Year) appendectomy
== END 2025-01-05 09:14 | disposition home or self-care (01) ==
LOC: HO.HSM 08:43
PROVIDERS: PCP Internal Medicine; Visit Provider Psychiatry & Neurology Neurology
DX: G31.83 Neurocognitive disorder with Lewy bodies (principal); F02.818 Dementia in other diseases classified elsewhere, unspecified severity, with other behavioral disturbance
CPT/HCPCS: 99214

== ENCOUNTER → 2025-01-05 08:43 | Outpatient (BNVA) | payer MEDICARE, OTHER, SELFPAY | PROVIDERS: PCP Internal Medicine; Visit Provider Psychiatry & Neurology Neurology | DX: G31.83 Neurocognitive disorder with Lewy bodies (principal); F02.818 Dementia in other diseases classified elsewhere, unspecified severity, with other behavioral disturbance; Z79.899 Other long term (current) drug therapy | CPT/HCPCS: 99212 ==

== ENCOUNTER 2025-01-30 19:49 | Inpatient (IN) | payer MEDICARE, OTHER, SELFPAY ==
--- NOTE | ~2025-01-30 | XR_ITS ---
CLINICAL HISTORY: s p rt hip bj --- Additional Notes or Special Instructions: to be done in PACU Pelvis one view Comparison: 01/30/2025 Findings: No acute fracture or dislocation identified. Degenerative change in left hip joint. New right hip prosthesis, normal alignment. No evidence for component loosening is identified. Surgical fabian lateral to right hip. Impression: Status post right hip prosthesis placement No acute bony abnormality This document has been electronically signed by: Isidro Madison MD on 01/31/2025 20:51:48
--- NOTE | ~2025-01-30 | CT_ITS ---
CLINICAL HISTORY: fall, dementia CT head without contrast Comparison: CT/SR - CT HEAD/BRAIN WO IV CON - 08/08/24 22:41 EST Findings: No intra-axial mass, midline shift, hydrocephalus, or acute hemorrhage. Age related atrophy and white matter disease. The visualized paranasal sinuses and mastoid air cells are normal. The orbits are within normal limits. There is no acute fracture. IMPRESSION: 1. No acute intracranial findings. This document has been electronically signed by: Flynn Craig MD on 01/30/2025 23:08:35
--- NOTE | ~2025-01-30 | CT_ITS ---
CLINICAL HISTORY: fall, pain, unable to move due to pain CT right hip without contrast Comparison: CR - XR PELVIS 1-2V - 01/30/25 21:43 EDT Findings: Acute comminuted displaced subcapital fracture of the right femoral neck. No femoral -acetabular right hip dislocation. Prostatomegaly. Pelvic contents otherwise unremarkable. IMPRESSION: As reported on same day pelvic radiograph, acute comminuted and displaced subcapital fracture of the right femoral neck without hip dislocation This document has been electronically signed by: Flynn Craig MD on 01/30/2025 23:01:39
--- NOTE | ~2025-01-30 | CT_ITS ---
CLINICAL HISTORY: fall, hx dementia CT cervical spine without contrast Comparison: CT/SR - CT CERVICAL SPINE WO IV CON - 08/08/24 22:41 EST Findings: Exaggeration of the cervical lordosis, as before. Multilevel cervical spondylosis, with uncovertebral hypertrophy, and facet arthropathy. No acute fractures or dislocations. No acute findings on limited view of the intracranial contents. Soft tissues of the neck are normal. Biapical emphysema. IMPRESSION: No acute findings. This document has been electronically signed by: Flynn Craig MD on 01/31/2025 00:05:10
--- NOTE | ~2025-01-30 | XR_ITS ---
CLINICAL HISTORY: per ortho if hip CT + fx - UNABLE TO TAKE SECOND PELVIC IMAGE DUE TO PT PAIN, PLEASE SEE CT RT HIP TOPOGRAM 1 view pelvis Comparison: CT/SR - CT HIP RT WO IV CON - 01/30/25 21:31 EDT Findings: Acutecomminuted displaced fracture of the right femoral neck. No hip dislocation. Unremarkable bowel gas pattern. IMPRESSION: Acute comminuted displaced fracture of the right femoral neck. See same-day CT of the right hip for more details. This document has been electronically signed by: Flynn Craig MD on 01/30/2025 22:43:47
[2025-01-30 20:08] VITALS: BP 160/80; PULSE 88; O2SAT 100; BMI 24.9
[2025-01-30 21:08] VITALS: BP 142/71; PULSE 70; RESP 20; TEMP 37.1; O2SAT 96
--- NOTE | 2025-01-30 21:17 | ECG_ITS ---
Test Reason : fall Blood Pressure : */* mmHG Vent. Rate : 75 BPM Atrial Rate : 75 BPM P-R Int : 170 ms QRS Dur : 106 ms QT Int : 408 ms P-R-T Axes : 5 -18 40 degrees QTcB Int : 455 ms Normal sinus rhythm Low voltage QRS Borderline ECG When compared with ECG of 08-Aug-2024 21:52, Premature ventricular complexes are no longer Present Referred By: Ericka Bhat Electronically Signed By: ELLIOTT TRONCOSO MD
--- NOTE | 2025-01-30 21:19 | ED_ITS ---
HPI - Fall General Chief Complaint: Fall Stated Complaint: FALL, HIP PAIN Time Seen by Provider: 01/30/25 20:57 Source: patient, family and EMS Mode of arrival: EMS Limitations: no limitations History of Present Illness ED Provider: Dr. Ericka Bhat HPI Narrative: Patient comes to the emergency room complaining of right-sided hip pain after a fall. Patient states that he was golfing with his friends, not sure how he fell but believes that he tripped, the ground was uneven. Patient fell backwards and on his right side. Patient states that he has been unable to get up due to pain in his right hip. Patient denies hitting his head or losing consciousness, patient has small scrapes in his right elbow but is able to move his arms with normal range of motion. According to the patient's family, the patient has history of dementia but he is still fairly active, walks by himself at home without assistance. Related Data Home Medications ?Medication ?Instructions ?Recorded ?Confirmed ammonium lactate 12 % topical cream 1 appl topical BID PRN Dry/Itchy 08/09/24 08/09/24 Skin ketoconazole 2 % topical cream 1 appl topical BID PRN Flares 08/09/24 01/05/25 risperidone 0.25 mg tablet 0.25 mg PO BID@1700,2000 08/09/24 tacrolimus 0.1 % topical ointment 1 appl topical BID P RN Rash 08/09/24 01/05/25 mirtazapine 15 mg tablet 15 mg PO QPM 01/03/25 Previous Rx's ?Medication ?Instructions ?Recorded carbidopa 25 mg-levodopa 100 mg 1 tab PO BID #60 tabs 08/11/24 tablet donepezil 10 mg tablet 10 mg PO DAILY #90 tabs 12/14 10/07 memantine 10 mg tablet 10 mg PO BID #180 tabs 01/05 quetiapine 25 mg tablet 25 mg PO BEDTIME #90 tabs sertraline 25 mg tablet 25 mg PO DAILY #90 tabs 12/14 10/07 Allergies Allergy/AdvReac Type Severity Reaction Status Date / Time typhoid injection Allergy Unknown Unknown Uncoded 01/30/25 20:13 Review of Systems 2 Review of Systems: Constitutional : No Weight loss, No Fever, No Chills, No Night Sweats, No Fatigue, No Malaise ENT/Mouth : No Hearing loss, No Ear Pain, No Nasal Congestion, No Sinus Pain, No Hoarseness, No sore throat, No Rhinorrhea, No Swallowing Difficulty Eyes: No Eye Pain, No Swelling, No Redness, No Foreign Body, No Discharge, No Vision Changes Cardiovascular : No Chest Pain, No SOB, No Dyspnea on Exertion, No Orthopnea, No Edema, No Palpitations Respiratory : No Cough, No Sputum, No Wheezing, No Smoke Exposure, No Dyspnea Gastrointestinal : No Nausea, No Vomiting, No Diarrhea, No Constipation, No abdominal Pain, No Hematochezia, No Melena Genitourinary : no irregular bleeding, No Dysuria, No Urinary Frequency, No Hematuria, No Urinary Incontinence, No Urgency, No Flank Pain, No Urinary Flow Changes, No Hesitancy Musculoskeletal : Complaining of right-sided hip pain after a fall, unable to move due to pain No Myalgias, No Joint Swelling Skin : No Skin Lesions, No rash Neuro : No Weakness, No Numbness, No Paresthesias, No Loss of Consciousness, No Dizziness, No Headache Psych : No Anxiety/Panic, No Depression, No SI/HI/AH/VH, No Social Issues, Heme/Lymph: No Bruising, No Bleeding,No Lymphadenopathy Endocrine : No Polyuria, No Polydipsia, No Temperature Intolerance [facility] Past Medical History Medical History Dementia with Lewy bodies Social History Social History Advance Directives: Yes Advance Directives on File: Yes Advance Directives Date on File: 08/09/24 Do you have a plan to hurt others: No Plan Physical Exam 2 Exam: Exam: Appearance: Alert. Oriented X3. No acute distress. Eyes: Pupils equal, round and reactive to light. ENT: Pharynx normal. Neck: Normal inspection. Neck supple. No lymph nodes noted. No crepitus CVS: Normal heart rate and rhythm. Pulses normal. Normal S1 and S2 Respiratory: No respiratory distress. Breath sounds normal. No Wheezing. No rales Abdomen: Soft and nontender. No rigidity. No distention. Skin: Skin warm and dry. Normal skin color. Normal skin turgor. Extremities complaining of right-sided hip pain, unable to flex or extend due to pain. Patient's right leg is currently under a bunch of blankets but seems a bit shortened Neuro: Oriented X 3. No motor deficit. No sensory deficit. Moving all extremities. No slurred speech. CN 2 through 12 grossly intact Psych: calm, cooperative, normal affect Vital Signs: Vital Signs: Last Vital Signs Temp 98.7 F 01/30/25 21:08 Pulse 70 01/30/25 21:08 Resp 20 01/30/25 21:51 BP 142/71 H 01/30/25 21:08 Pulse Ox 96 01/30/25 21:08 O2 Del Method Room Air 01/30/25 21:08 BMI result Body Mass Index 24.9 Medications Administered Discontinued Medications Generic Name Dose Route Start Last Admin Trade Name Freq PRN Reason Stop Dose Admin Acetaminophen 975 mg 01/30/25 21:19 01/30/25 21:51 Acetaminophen 325 Mg Tablet PO 01/30/25 21:20 975 mg ONCE ONE Administration Morphine Sulfate 1 mg 01/30/25 21:18 01/30/25 21:51 Morphine Sulfate 2 Mg/Ml Cartridge IVPUSH 01/30/25 21:19 1 mg ONCE ONE Administration Protocol Ondansetron HCl 4 mg 01/30/25 21:18 01/30/25 21:51 Ondansetron Hcl 4 Mg/2 Ml Vial IVPUSH 01/30/25 21:19 4 mg ONCE ONE Administration Medical Decision Making Medical Decision Making [facility] Narrative: My interpretation of labs: Patient's white blood cell count is 18.8, likely reactive leukocytosis. Urinalysis negative for UTI CT scan of the hip: Acute comminuted and displaced subcapital fracture of the right femoral neck without hip dislocation Patient was discussed with Orthopedics as well Dr. Pham from the Medicine team will admit the patient Pending: Chemistry Head and cervical spine CT Consult Healthcare Provider Management of the patient was discussed with: Hospitalist and Emergency Vehicle Driver Lab Data [facility] Lab Attestation statement: I reviewed the patient's lab results. 01/30/25 22:39 01/30/25 22:39 Labs: Lab Results 01/30/25 Range/Units 22:39 WBC 18.8 H (4.8-10.8) X10*3/uL RBC 4.90 (4.60-5.80) X10*6/uL Hgb 15.4 (14.0-18.0) g/dl Hct 44.9 (42.0-52.0) % MCV 91.6 (80.0-98.0) fL MCH 31.4 (27.0-33.0) pg MCHC 34.3 (31.0-36.0) g/dl RDW 13.6 (11.0-16.0) % Plt Count 170 (160-400) X10*3/uL MPV 11.9 (9.4-12.4) fL Immature Gran % (Auto) 0.7 H (0.0-0.4) % Neut % (Auto) 83.9 H (45-73) % Lymph % (Auto) 9.2 L (20-40) % [place] % (Auto) 5.8 (2-11) % Eos % (Auto) 0.0 (0-4) % Baso % (Auto) 0.4 (0-2) % Lymph # (Auto) 1.7 (1.2-4.9) X10*3/uL [place] # (Auto) 1.1 (0.1-1.2) X10*3/uL Eos # (Auto) 0.0 (0.0-0.4) X10*3/uL Baso # (Auto) 0.1 (0.0-0.2) X10*3/uL Abs Immat Gran (auto) 0.13 H (0.00-0.03) X10*3/uL Absolute Neuts (auto) 15.8 H (2.0-8.3) x10*3/uL Absolute Nucleated RBC 0.000 (0.0-0.012) X10*3/uL Nucleated RBC % (auto) 0.0 (0.0-0.2) /100WBC PT 13.0 H (10.9-12.4) SEC INR 1.1 (0.9-1.1) Urine Color Dark Yellow Urine Appearance Clear Urine pH 6.5 (5.0-9.0) Ur Specific [place] 1.020 (1.005-1.025) Urine Protein 30 (1+) H (Neg-Trace) mg/dL Urine Glucose (UA) Negative (Negative) mg/dL Urine Ketones 15 (Negative) mg/dL Urine Blood Negative (Negative) Urine Nitrite Negative (Negative) Ur Leukocyte Esterase Trace H (Negative) Urine RBC 0-2 (0-2) /HPF Urine WBC 0-5 (0-5) /HPF Ur Squamous Epith Cells 0-2 (0-2) /HPF Urine Bacteria None Seen (None Seen) Hyaline Casts 0-2 (0-2) /LPF Independent Interpretation I performed an independent interpretation of an: CT Scan Radiology Impression Discussion of test interpretation with radiology: I have reviewed the radiologist's reading. Radiologist Impression: Acute comminuted displaced subcapital fracture of the right femoral neck. No femoral -acetabular right hip dislocation. Prostatomegaly. Pelvic contents otherwise unremarkable. IMPRESSION: As reported on same day pelvic radiograph, acute comminuted and displaced subcapital fracture of the right femoral neck without hip dislocation No intra-axial mass, midline shift, hydrocephalus, or acute hemorrhage. Age related atrophy and white matter disease. The visualized paranasal sinuses and mastoid air cells are normal. The orbits are within normal limits. There is no acute fracture. IMPRESSION: 1. No acute intracranial findings Critical Care Time Critical Care Time Critical Care Time: Yes Total Critical Care Time: 60 Attestation: I have personally provided critical care time. Time includes review of lab data, radiology results, discussion with consultants, and monitoring for potential decompensation. Intervention performed as documented. Discharge Plan Discharge Clinical Impression: Closed fracture of neck of right femur Patient Disposition: Admitted As Inpatient Print Language: Thai
[2025-01-30 21:51] VITALS: RESP 20
[2025-01-30 22:45] LABS: MANUAL DIFF FLAG NO
[2025-01-30 22:46] LABS: Hematocrit 44.9 % (42.0-52.0); Hemoglobin 15.4 g/dl (14.0-18.0); Imm Gran Abs Auto 0.13 X10*3/uL (0.00-0.03); Imm Gran Pct Auto 0.7 % (0.0-0.4); Lymphocytes Absolute Auto 1.7 X10*3/uL (1.2-4.9); Mean Corpuscular HGB Conc 34.3 g/dl (31.0-36.0); Mean Corpuscular Hemoglobin 31.4 pg (27.0-33.0); Mean Corpuscular Volume 91.6 fL (80.0-98.0); NRBC Abs Auto 0.000 X10*3/uL (0.0-0.012); NRBC Pct Auto 0.0 /100WBC (0.0-0.2); Platelet Count 170 X10*3/uL (160-400); Red Blood Count 4.90 X10*6/uL (4.60-5.80); White Blood Count 18.8 X10*3/uL (4.8-10.8)
[2025-01-30 22:50] LABS: Appearance Urine Clear; Glucose Urine UA Negative (Negative); PH 6.5 (5.0-9.0); Specific Gravity - Urine 1.020 (1.005-1.025); UMIC TRIGGER UACC YES
[2025-01-30 22:53] LABS: INTERNATIONAL NORM RATIO 1.1 (0.9-1.1); Prothrombin Time 13.0 SEC (10.9-12.4)
[2025-01-30 23:07] LABS: Alanine Aminotransferase 11 U/L (0-40); Albumin Level 4.1 g/dL (3.5-5.0); Alkaline Phosphatase 73 U/L (39-117); Anion Gap 15 (12-20); Aspartate Amino Transferase 26 U/L (5-37); Blood Urea Nitrogen 19 mg/dL (9-16); Calcium 9.0 mg/dL (8.4-10.2); Carbon Dioxide 23 mmol/L (22-29); Chloride 108 mmol/L (96-108); Creatinine Clr Calc Pharmacy 60.1; Estimated Glomerular Filt Rate > 60; Potassium 3.7 mmol/L (3.3-5.1); Sodium 142 mmol/L (135-145); Total Protein 6.7 g/dL (6.5-8.0)
--- NOTE | 2025-01-30 23:19 | PM.IMHP ---
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 Patient states he was [place] when he tripped and fell landing on his right side. He did not lose consciousness before the fall. No chest pain or palpitations prior to the fall. No rhythmic jerking movement of extremities. Patient thinks he missed a step and fell on his right side. He is complaining of right hip pain since the fall. Patient at baseline ambulates without assistance. No fever, chills, shortness of breath, abdominal pain, changes in urinary or bowel habits. In the emergency department, imaging with acute comminuted displaced right femoral neck fracture. Review of Systems Constitutional: Constitutional: Reports no additional constitutional complaints Cardiovascular: Cardiovascular: Reports no additional cardiovascular complaints Respiratory: Respiratory: Reports no additional respiratory complaints Gastrointestinal: Gastrointestinal: Reports no additional gastrointestinal complaints Genitourinary: Genitourinary: Reports no additional male genitourinary complaints Musculoskeletal: Musculoskeletal: Reports arthralgias and Reports joint swelling [facility] Medical History Dementia with Lewy bodies Social History Advance Directives: Yes Advance Directives on File: Yes Advance Directives Date on File: 08/09/24 Do you have a plan to hurt others: No Plan Meds Allergies Allergy/AdvReac Type Severity Reaction Status Date / Time typhoid injection Allergy Unknown Unknown Uncoded 01/30/25 20:13 Home Medications ?Medication ?Instructions ?Recorded ?Confirmed ?Last Taken ?Type ammonium lactate 12 % topical cream 1 appl topical BID PRN Dry/Itchy 08/09/24 08/09/24 Unknown History Skin ketoconazole 2 % topical cream 1 appl topical BID PRN Flares 08/09/24 01/05/25 Unknown History risperidone 0.25 mg tablet 0.25 mg PO BID@1700,2000 08/09/24 08/09/24 08/07/24 History tacrolimus 0.1 % topical ointment 1 appl topical BID PRN Rash 08/09/24 01/05/25 Unknown History mirtazapine 15 mg tablet 15 mg PO QPM 01/03/25 01/05/25 Unknown History Physical Exam Vital Signs and Narrative: Vital Signs: Last Vital Signs Temp 98.7 F 01/30/25 21:08 Pulse 70 01/30/25 21:08 Resp 20 01/30/25 21:51 BP 142/71 H 01/30/25 21:08 Pulse Ox 96 01/30/25 21:08 O2 Del Method Room Air 01/30/25 21:08 BMI result Body Mass Index 24.9 Const: Other: Elderly male lying in bed in no distress Neck supple, no JVD Regular rate and rhythm, S1-S2 heard Regular breath sounds bilaterally, no wheezing or crackles appreciated Abdomen soft nontender, no guarding, no rigidity Patient is awake, alert and oriented x3 ; no focal motor deficit Limited range of motion of right lower extremity due to pain Psych: Normal mood Results Labs 01/30/25 22:39 01/30/25 22:39 Labs: Laboratory Results - last 24 hr 01/30/25 22:39 MCV 91.6 MCH 31.4 MCHC 34.3 RDW 13.6 Plt Count 170 MPV 11.9 Immature Gran % (Auto) 0.7 H Neut % (Auto) 83.9 H Lymph % (Auto) 9.2 L [place] % (Auto) 5.8 Eos % (Auto) 0.0 Baso % (Auto) 0.4 Lymph # (Auto) 1.7 [place] # (Auto) 1.1 Eos # (Auto) 0.0 Baso # (Auto) 0.1 Abs Immat Gran (auto) 0.13 H Absolute Neuts (auto) 15.8 H Absolute Nucleated RBC 0.000 Nucleated RBC % (auto) 0.0 PT 13.0 H INR 1.1 Anion Gap 15 Estim Creat Clear Calc 60.1 Estimated GFR > 60 Random Glucose 112 Calcium 9.0 Total Bilirubin 1.3 H Direct Bilirubin 0.4 AST 26 ALT 11 Alkaline Phosphatase 73 Total Protein 6.7 Albumin 4.1 Urine Color Dark Yellow Urine Appearance Clear Urine pH 6.5 Ur Specific [place] 1.020 Urine Protein 30 (1+) H Urine Glucose (UA) Negative Urine Ketones 15 Urine Blood Negative Urine Nitrite Negative Ur Leukocyte Esterase Trace H Urine RBC 0-2 Urine WBC 0-5 Ur Squamous Epith Cells 0-2 Urine Bacteria None Seen Hyaline Casts 0-2 Assessment and Plan (1) Femoral neck fracture: Status: Acute Plan This is a 79-year-old male with pertinent history 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 #. Acute comminuted displaced fracture of the right femoral neck due to mechanical fall: Will admit patient with IV opioids p.r.n. for analgesia. Will keep patient NPO. Consulting Orthopedic surgery #. Preoperative risk: RCRI score 0. Okay to proceed with acceptable risk #. Vishal body dementia with parkinsonism and behavioral disturbance: Continue home medications. Maintain sleep-wake cycle #. Leukocytosis, reactive Med rec pending DVT prophylaxis: Mechanical Full code. Discussed with the patient and family at bedside Admit as inpatient and will require two night minimum hospital stay for evaluation and management of acute femoral neck fracture (as above), which is not possible in a lesser acute setting. Orthopedic surgery consult pending Quality Stroke Does the patient have a stroke diagnosis?: No VTE Prior VTE?: No VTE Risk Level:: Medical - moderate - high VTE Device Contraindication: Treatment Not Indicated VTE Drug Contraindication: N/A - Med Ordered
[2025-01-30 23:27] VITALS: RESP 18
[2025-01-31] VITALS (14 sets, daily range): BP systolic 105–185; BP diastolic 65–88; PULSE 71–112; RESP 13–22; TEMP 36.9–37.4; O2SAT 90–100; BMI 22.6
[2025-01-31] MEDS: 0.9 % Sodium Chloride Flush 3 ML SYRINGE IVFLUSH ×3 (02:30→22:50)
[2025-01-31 06:18] LABS: MANUAL DIFF FLAG NO
[2025-01-31 06:27] LABS: Hematocrit 45.0 % (42.0-52.0); Hemoglobin 15.5 g/dl (14.0-18.0); Imm Gran Abs Auto 0.09 X10*3/uL (0.00-0.03); Imm Gran Pct Auto 0.7 % (0.0-0.4); Lymphocytes Absolute Auto 2.0 X10*3/uL (1.2-4.9); Mean Corpuscular HGB Conc 34.4 g/dl (31.0-36.0); Mean Corpuscular Hemoglobin 31.4 pg (27.0-33.0); Mean Corpuscular Volume 91.1 fL (80.0-98.0); NRBC Abs Auto 0.000 X10*3/uL (0.0-0.012); NRBC Pct Auto 0.0 /100WBC (0.0-0.2); Platelet Count 154 X10*3/uL (160-400); Red Blood Count 4.94 X10*6/uL (4.60-5.80); White Blood Count 13.5 X10*3/uL (4.8-10.8)
[2025-01-31 06:35] LABS: Anion Gap 15 (12-20); Blood Urea Nitrogen 21 mg/dL (9-16); Calcium 9.1 mg/dL (8.4-10.2); Carbon Dioxide 24 mmol/L (22-29); Chloride 107 mmol/L (96-108); Creatinine Clr Calc Pharmacy 68.2; Estimated Glomerular Filt Rate > 60; Potassium 3.8 mmol/L (3.3-5.1); Sodium 142 mmol/L (135-145)
--- NOTE | 2025-01-31 07:46 | PM.CNOR ---
History of Present Illness HPI Consult date: 01/31/25 Chief complaint: FALL Narrative: 79 yo male with PMH significant for parkinsons dementia not on any anticoagulant therapy admitted to the medical service after a mechanical fall while playing golf. He was unable to get up and ambulate, brought to the ED via EMS and xrays / CT scan confirmed right femoral neck fracture. Per ED notes, patient ambualtes at baseline without assistive device. He lives at home with his . Orthopedics was consulted for further recommendations. Review of Systems Review of Systems: Yes all other systems are reviewed and are negative PMFSH Past Medical History Medical History Dementia with Lewy bodies Social History Social History Household Members: Spouse Housing: House Do you presently have visiting nurse or other home services: No Patient Tobacco Use Status: Never used Tobacco Advance Directives Date on File: 08/09/24 Meds Allergies Allergy/AdvReac Type Severity Reaction Status Date / Time typhoid injection Allergy Unknown Unknown Uncoded 01/30/25 20:13 Active Medications: Current Medications Acetaminophen (Acetaminophen 325 Mg Tablet) 650 mg PO Q6H PRN PRN Reason: Pain, Mild 1-3,fever,headache Calcium Carbonate (Calcium Carbonate 750 Mg Tab.Chew) 750 mg PO Q4H PRN PRN Reason: Heartburn Magnesium Hydroxide (Milk Of Magnesia 30 Ml Oral.Susp) 30 ml PO DAILY PRN PRN Reason: Constipation Melatonin (Melatonin 3 Mg Tablet) 6 mg PO BEDTIME PRN PRN Reason: Insomnia Morphine Sulfate (Morphine Sulfate 4 Mg/Ml Cartridge) 2 mg IVPUSH Q4H PRN; Protocol PRN Reason: Pain, Severe (Pain Scale 7-10) Ondansetron HCl (Ondansetron Hcl 4 Mg/2 Ml Vial) 4 mg IVPUSH Q8H PRN PRN Reason: Nausea and Vomiting Sodium Chloride (0.9 % Sodium Chloride Flush 3 Ml Syringe) 3 ml IVFLUSH QSHIFT [facility] Last Admin: 01/31/25 07:25 Dose: 3 ml Home Medications ?Medication ?Instructions ?Recorded ?Confirmed ?Last Taken ?Type ammonium lactate 12 % topical cream 1 appl topical BID PRN Dry/Itchy 08/09/24 08/09/24 Unknown History Skin ketoconazole 2 % topical cream 1 appl topical BID PRN Flares 08/09/24 01/05/25 Unknown History tacrolimus 0.1 % topical ointment 1 appl topical BID PRN Rash 08/09/24 01/05/25 Unknown History mirtazapine 15 mg tablet 15 mg PO QPM 01/03/25 01/05/25 Unknown History Physical Exam Vital Signs: Vital Signs: Last Vital Signs Temp 98.9 F 01/31/25 07:25 Pulse 76 01/31/25 07:25 Resp 18 01/31/25 07:25 BP 153/81 H 01/31/25 07:25 Pulse Ox 96 01/31/25 07:25 O2 Del Method Room Air 01/31/25 07:25 BMI result Body Mass Index 22.6 Const: General: cooperative, healthy appearing, comfortable and no acute distress Extrem: Other: Right hip skin intact, no open wounds. Pain with log roll. He is able to plantar and dorsiflex the foot. NVI. Results Labs 01/31/25 05:47 01/31/25 05:47 Labs: Abnormal lab results 01/30/25 01/31/25 Range/Units 22:39 05:47 WBC 18.8 H 13.5 H (4.8-10.8) X10*3/uL Plt Count 154 L (160-400) X10*3/uL MPV 12.5 H (9.4-12.4) fL Immature Gran % (Auto) 0.7 H 0.7 H (0.0-0.4) % Neut % (Auto) 83.9 H 75.2 H (45-73) % Lymph % (Auto) 9.2 L 15.1 L (20-40) % Abs Immat Gran (auto) 0.13 H 0.09 H (0.00-0.03) X10*3/uL Absolute Neuts (auto) 15.8 H 10.1 H (2.0-8.3) x10*3/uL PT 13.0 H (10.9-12.4) SEC BUN 19 H 21 H (9-16) mg/dL Random Glucose 118 H (60-115) mg/dL Total Bilirubin 1.3 H (0.0-1.0) mg/dL Urine Protein 30 (1+) H (Neg-Trace) mg/dL Ur Leukocyte Esterase Trace H (Negative) H & H 01/30/25 01/31/25 Range/Units 22:39 05:47 Hgb 15.4 15.5 (14.0-18.0) g/dl Hct 44.9 45.0 (42.0-52.0) % Coagulation 01/30/25 Range/Units 22:39 INR 1.1 (0.9-1.1) All other labs normal. Diagnostic results Hip x-ray: image reviewed (IMPRESSION: Acute comminuted displaced fracture of the right femoral neck. See same-day CT of the right hip for more details.) Assessment and Plan (1) Femoral neck fracture: Status: Acute Plan I discussed the case with Dr Perez along with the patient and his , Allyson and discussed treatment options which would include surgical intervention which he would benefit from to restore function and quality of life. The patient does understand nonsurgical intervention would result in significantly limited function, bed rest, risk of DVT/PE, bed sores and non-healing fracture, at the least. Given the patient's activity level and desire to maintain this, it would be recommended to pursue surgical intervention. We discussed the procedure in detail along with the risks benefits and alternatives. Risks including but not limited to infection, injury to surrounding nerves and tissue and bone, small and large vessels, stiffness,dislocation, mackenzie prosthetic fracture and need for further surgery, DVT/PE along with intraoperative complications including but not limited to . We discussed postoperative recovery which includes home w vna vs STR. The patient does express understanding we would like to proceed with operative fixation right hip with Dr. Perez. Per Allyson, the patient does sign his own consents. Patient is NPO, T&S obtained and will be optimized by the medical team . Allyson ( ) [phone] Procedures Date of Service Date of Service: 01/31/25
--- NOTE | 2025-01-31 09:22 | P.CONAN_ITS ---
Documented by User: Kaila Crain NP 01/31/25 12:47 HPI - Anesthesia Eval Consult details Narrative: 79 yr old male for hemiarthroplasty right hip *significant confusion, agitation, RN gave ativan at 11 am No CP/SOB with walking, golfing. No recent illness. s/p fall due to tripping, no dizziness or LOC Lewy Body Dementia with Parkinsonian features: on Carbidopa/Levodopa, quetiapine, memantine, donepezil; active, but not alerted to place/time, confused at baseline s/p right surgery last year at [facility] - no issues with anesthesia PMFSH Active Problems Active Problems: All Active Problems Femoral neck fracture (Acute) Lewy body dementia with behavioral disturbance (Acute) Major neurocognitive disorder (Acute) Parkinsonian features (Acute) Past Medical History Medical History Dementia with Lewy bodies Social History Social History Household Members: Spouse Housing: House Are you a primary care companion to a significant other at home: No Do you presently have visiting nurse or other home services: No Patient Tobacco Use Status: Never used Tobacco Second Hand Smoke Exposure: No Advance Directives Date on File: 08/09/24 service: No Meds Allergies Allergy/AdvReac Type Severity Reaction Status Date / Time typhoid injection Allergy Unknown Unknown Uncoded 01/30/25 20:13 Active Medications: Current Medications Acetaminophen (Acetaminophen 325 Mg Tablet) 650 mg PO Q6H PRN PRN Reason: Pain, Mild 1-3,fever,headache Calcium Carbonate (Calcium Carbonate 750 Mg Tab.Chew) 750 mg PO Q4H PRN PRN Reason: Heartburn Magnesium Hydroxide (Milk Of Magnesia 30 Ml Oral.Susp) 30 ml PO DAILY PRN PRN Reason: Constipation Melatonin (Melatonin 3 Mg Tablet) 6 mg PO BEDTIME PRN PRN Reason: Insomnia Morphine Sulfate (Morphine Sulfate 4 Mg/Ml Cartridge) 2 mg IVPUSH Q4H PRN; Protocol PRN Reason: Pain, Severe (Pain Scale 7-10) Ondansetron HCl (Ondansetron Hcl 4 Mg/2 Ml Vial) 4 mg IVPUSH Q8H PRN PRN Reason: Nausea and Vomiting Sodium Chloride (0.9 % Sodium Chloride Flush 3 Ml Syringe) 3 ml IVFLUSH QSHIFT COUNTS INCLUDE 234 BEDS AT THE [facility] Last Admin: 01/31/25 07:25 Dose: 3 ml Home Medications ?Medication ?Instructions ?Recorded ?Confirmed ?Last Taken ?Type mirtazapine 15 mg tablet 15 mg PO BEDTIME 01/03/2501/30/25 History melatonin 10 mg tablet 10 mg PO BEDTIME PRN Sleep 0 01/31/25 01/31/25 Unknown History Exam Height,Weight and Vital Signs: Height 5 ft 8 in Weight 67.4 kg Last Vital Signs Temp 98.9 F 01/31/25 07:25 Pulse 76 01/31/25 07:25 Resp 18 01/31/25 07:25 BP 153/81 H 01/31/25 07:25 Pulse Ox 96 01/31/25 07:25 O2 Del Method Room Air 01/31/25 07:25 Pertinent Lab Results Pertinent Lab Results: Laboratory Tests 01/30/25 01/30/25 01/31/25 22:39 23:38 05:47 WBC 18.8 H 13.5 H RBC 4.90 4.94 Hgb 15.4 15.5 Hct 44.9 45.0 MCV 91.6 91.1 MCH 31.4 31.4 MCHC 34.3 34.4 RDW 13.6 13.8 Plt Count 170 154 L MPV 11.9 12.5 H Immature Gran % (Auto) 0.7 H 0.7 H Neut % (Auto) 83.9 H 75.2 H Lymph % (Auto) 9.2 L 15.1 L [place] % (Auto) 5.8 8.6 Eos % (Auto) 0.0 0.0 Baso % (Auto) 0.4 0.4 Lymph # (Auto) 1.7 2.0 [place] # (Auto) 1.1 1.2 Eos # (Auto) 0.0 0.0 Baso # (Auto) 0.1 0.1 Abs Immat Gran (auto) 0.13 H 0.09 H Absolute Neuts (auto) 15.8 H 10.1 H Absolute Nucleated RBC 0.000 0.000 Nucleated RBC % (auto) 0.0 0.0 PT 13.0 H INR 1.1 Sodium 142 142 Potassium 3.7 3.8 Chloride 108 107 Carbon Dioxide 23 24 Anion Gap 15 15 BUN 19 H 21 H Creatinine 0.98 0.85 Estim Creat Clear Calc 60.1 68.2 Estimated GFR > 60 > 60 Random Glucose 112 118 H Calcium 9.0 9.1 Total Bilirubin 1.3 H Direct Bilirubin 0.4 AST 26 ALT 11 Alkaline Phosphatase 73 Total Protein 6.7 Albumin 4.1 Urine Color Dark Yellow Urine Appearance Clear Urine pH 6.5 Ur Specific [place] 1.020 Urine Protein 30 (1+) H Urine Glucose (UA) Negative Urine Ketones 15 Urine Blood Negative Urine Nitrite Negative Ur Leukocyte Esterase Trace H Urine RBC 0-2 Urine WBC 0-5 Ur Squamous Epith Cells 0-2 Urine Bacteria None Seen Hyaline Casts 0-2 Blood Type O Positive Antibody Screen NEGATIVE Narrative Narrative: EKG (draft) 01/30/25 Vent. Rate : 75 BPM Atrial Rate : 75 BPM P-R Int : 170 ms QRS Dur : 106 ms QT Int : 408 ms P-R-T Axes : 5 -18 40 degrees QTcB Int : 455 ms Normal sinus rhythm Low voltage QRS Borderline ECG When compared with ECG of 08-Aug-2024 21:52, Premature ventricular complexes are no longer Present Airway Mallampati Class: II TM Dist: >3cm Neck ROM: Full Loose/Missing/Broken Teeth: No and Upper (C all front) Heart: RRR Lungs: CTAB Documented by User: Adam Currie MD 01/31/25 16:54 [facility] Past Medical History Medical History Dementia with Lewy bodies Family History Family history of problems with anesthesia: No Surgical History History of Problems with Anesthesia: No Social History Social History Household Members: Spouse Housing: House Are you a primary care companion to a significant other at home: No Do you presently have visiting nurse or other home services: No Patient Tobacco Use Status: Never used Tobacco Second Hand Smoke Exposure: No Advance Directives Date on File: 08/09/24 service: No Meds Allergies Allergy/AdvReac Type Severity Reaction Status Date / Time typhoid injection Allergy Unknown Unknown Uncoded 01/30/25 20:13 Home Medications ?Medication ?Instructions ?Recorded ?Confirmed ?Last Taken ?Type mirtazapine 15 mg tablet 15 mg PO BEDTIME 01/03/2501/30/25 History melatonin 10 mg tablet 10 mg PO BEDTIME PRN Sleep 0 01/31/25 01/31/25 Unknown History Assessment and Plan Assessment Anesthesia Assessment: Anesthesia Plan Discussed and Chart Reviewed Final Anesthetic Review Family History of Problems with Anesthesia: No History of Problems with Anesthesia: No NPO: Yes ASA Class: III Final Preanesthetic Review: No Changes in Pt Med Stat, Meds/Allgs Chart Reviewed, Consent Obtained/Reviewed and Anes Risks/Benef Reviewed Patient Risk: Intermediate Procedure Risk: Low Anesthetic Plan Anesthetic Plan: GA Disposition: Standard PACU
--- NOTE | 2025-01-31 09:32 | PHA.MEDREC ---
Addendum entered by Robert Campo RPh 01/31/25 11:01: MED REC REVIEWED BY [facility] Original Note: Pharmacy Consult ? Medication Reconciliation Pharmacy has completed the medication reconciliation. Spoke to patient over patient phone . was able to confirm all of patients medications. Patient is no longer taking Ammonium lactate, Ketoconazole cream and Tacrolimus cream. states patient takes Trazadone 100 mg at bedtime , however there are no claims for. left off med list. Patient last had his medications yesterday.
--- NOTE | 2025-01-31 10:53 | P.PNIM_ITS ---
Subjective Subjective Date of Service: 01/31/25 Interval History: Pt seen this am, son at bedside, pt denies any sx, booked for OR at 2 pm for rt neck femoral fx, baseline dementia, getting anxious, home meds resumed. Review of Systems -ve except as stated above Physical Exam 2 Vital Signs: Vital Signs: Last Vital Signs Temp 98.9 F 01/31/25 07:25 Pulse 76 01/31/25 07:25 Resp 18 01/31/25 07:25 BP 153/81 H 01/31/25 07:25 Pulse Ox 96 01/31/25 07:25 O2 Del Method Room Air 01/31/25 07:25 BMI result Body Mass Index 22.6 Elderly male lying in bed in no distress Neck supple, no JVD Regular rate and rhythm, S1-S2 heard Regular breath sounds bilaterally, no wheezing or crackles appreciated Abdomen soft nontender, no guarding, no rigidity Patient is awake, alert and oriented x3 ; no focal motor deficit Limited range of motion of right lower extremity due to pain Psych: Normal mood Objective Data Active Medications Acetaminophen (Acetaminophen 325 Mg Tablet) 650 mg PO Q6H PRN PRN Reason: Pain, Mild 1-3,fever,headache Calcium Carbonate (Calcium Carbonate 750 Mg Tab.Chew) 750 mg PO Q4H PRN PRN Reason: Heartburn Carbidopa/Levodopa (Carbidopa/Levodopa 25/100 Tablet) 1 tab PO BID UMA Donepezil HCl (Donepezil Hcl 10 Mg Tablet) 10 mg PO DAILY UMA Magnesium Hydroxide (Milk Of Magnesia 30 Ml Oral.Susp) 30 ml PO DAILY PRN PRN Reason: Constipation Melatonin (Melatonin 3 Mg Tablet) 6 mg PO BEDTIME PRN PRN Reason: Insomnia Memantine (Memantine Hcl 10 Mg Tablet) 10 mg PO BID UMA Mirtazapine (Mirtazapine 15 Mg Tablet) 15 mg PO BEDTIME UMA Morphine Sulfate (Morphine Sulfate 4 Mg/Ml Cartridge) 2 mg IVPUSH Q4H PRN; Protocol PRN Reason: Pain, Severe (Pain Scale 7-10) Non-Formulary Medication (Melatonin) 10 mg PO BEDTIME PRN PRN Reason: Sleep Ondansetron HCl (Ondansetron Hcl 4 Mg/2 Ml Vial) 4 mg IVPUSH Q8H PRN PRN Reason: Nausea and Vomiting Quetiapine Fumarate (Quetiapine Fumarate 25 Mg Tablet) 25 mg PO BEDTIME UMA Sertraline HCl (Sertraline Hcl 25 Mg Tablet) 25 mg PO DAILY UMA Sodium Chloride (0.9 % Sodium Chloride Flush 3 Ml Syringe) 3 ml IVFLUSH QSHIFT [facility] Last Admin: 01/31/25 07:25 Dose: 3 ml Documented By: FRANSISCO Labs 01/31/25 05:47 01/31/25 05:47 Labs: Laboratory Results - last 24 hr 01/30/25 01/30/25 01/31/25 22:39 23:38 05:47 MCV 91.6 91.1 MCH 31.4 31.4 MCHC 34.3 34.4 RDW 13.6 13.8 Plt Count 170 154 L MPV 11.9 12.5 H Immature Gran % (Auto) 0.7 H 0.7 H Neut % (Auto) 83.9 H 75.2 H Lymph % (Auto) 9.2 L 15.1 L [place] % (Auto) 5.8 8.6 Eos % (Auto) 0.0 0.0 Baso % (Auto) 0.4 0.4 Lymph # (Auto) 1.7 2.0 [place] # (Auto) 1.1 1.2 Eos # (Auto) 0.0 0.0 Baso # (Auto) 0.1 0.1 Abs Immat Gran (auto) 0.13 H 0.09 H Absolute Neuts (auto) 15.8 H 10.1 H Absolute Nucleated RBC 0.000 0.000 Nucleated RBC % (auto) 0.0 0.0 PT 13.0 H INR 1.1 Anion Gap 15 15 Estim Creat Clear Calc 60.1 68.2 Estimated GFR > 60 > 60 Random Glucose 112 118 H Calcium 9.0 9.1 Total Bilirubin 1.3 H Direct Bilirubin 0.4 AST 26 ALT 11 Alkaline Phosphatase 73 Total Protein 6.7 Albumin 4.1 Urine Color Dark Yellow Urine Appearance Clear Urine pH 6.5 Ur Specific [place] 1.020 Urine Protein 30 (1+) H Urine Glucose (UA) Negative Urine Ketones 15 Urine Blood Negative Urine Nitrite Negative Ur Leukocyte Esterase Trace H Urine RBC 0-2 Urine WBC 0-5 Ur Squamous Epith Cells 0-2 Urine Bacteria None Seen Hyaline Casts 0-2 Blood Type O Positive Antibody Screen NEGATIVE Assessment and Plan (1) Femoral neck fracture: Status: Acute (2) Lewy body dementia with behavioral disturbance: Status: Acute (3) Parkinsonian features: Status: Acute Plan This is a 79-year-old male with pertinent history 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 #. Acute comminuted displaced fracture of the right femoral neck due to mechanical fall: ortho consulted, scheduled for surgery today NPO except meds prn pain meds NWB dvt px with heparin sc #. Preoperative risk: RCRI score 0. Okay to proceed with acceptable risk #. Vishal body dementia with parkinsonism and behavioral disturbance: Continue home medications. Maintain sleep-wake cycle #. Leukocytosis, reactive, improving DVT prophylaxis: chemical Full code. Discussed with the patient and family at bedside Admit as inpatient and will require two night minimum hospital stay for evaluation and management of acute femoral neck fracture (as above), which is not possible in a lesser acute setting. Orthopedic surgery consult pending Quality Stroke Does the patient have a stroke diagnosis?: No VTE Prior VTE?: No VTE Risk Level:: Medical - moderate - high VTE Device Contraindication: Treatment Not Indicated VTE Drug Contraindication: N/A - Med Ordered
--- NOTE | 2025-01-31 13:20 | MHC.CM.PN ---
CM assessment completed w/ /HCP Allyson at bedside. Patient w/ dx dementia. Patient lives w/ who is primary blow mold operator assisting w/ dressing, bathing, medication administration, cooking, etc. Patient's daughter also stays at the home 1 night/week to assist. No current services or DME. Ambulates independently. PCP Haider Varela MD HCP on file and verified. Last seen in [facility] [place] Jul 20[place] - was sent home w/ [facility] services for a short period of time, dc'd in August. A referral was also sent to [facility] ([facility]) but did not move forward w/ services. DP: Awaiting surgery and will need PT eval. Goal is STR. 's preferences are 1) [facility], 2) [facility], 3) any other facility in [place]. [facility]. CM will continue to follow.
[2025-01-31] MEDS: Lactated Ringers 1,000 ML 80 ML IVCONT (14:15)
--- NOTE | 2025-01-31 15:46 | MHC.SHP ---
Pre-Procedural Eval Section A - 24 Hr Update-Section A only Date of Service: 01/31/25 The patient is an INPATIENT: Yes Changes since office visit: No Cold of Flu in the past 2 weeks, No New Medical Problems, No Changes in Medication and No Patient answered all questions The patient has been examined within 24 hours of the surgical procedure. The History & Physical has been completed within 30 days and I have reviewed it.: Yes Section B - Complete if H&P > 30 days Chief Complaint: FALL Allergies: Allergies Allergy/AdvReac Type Severity Reaction Status Date / Time typhoid injection Allergy Unknown Unknown Uncoded 01/30/25 20:13 Plan I have reviewed the history and physical and performed a pertinent physical examination on my patient. No changes have occurred unless specified. Time Spent With Patient Time: Total time managing care of this patient today ____ minutes.
--- NOTE | 2025-01-31 17:40 | P.BOP_ITS ---
Brief Operative Note Date of Service: 01/31/25 Pre-op diagnosis: Right femoral neck fracture Post-op diagnosis: same Procedure: Right hip hemiarthroplasty Implants: [place] Accolade2 #4 127 deg with - bipolar Surgeon: Sander Perez MD Anesthesia: GLMA and local Was an Bi Specialist used for this Procedure?: Yes Bi Specialist: Pamella Albright Estimated blood loss (mL): 200 IV fluids (mL): 1,000 Pathology: other Condition: stable Disposition: PACU
[2025-01-31] MEDS: OLANZapine 10 MG VIAL 5 MG IM (19:56)
[2025-02-01 03:48] VITALS: BP 140/63; PULSE 94; RESP 18; TEMP 36.8; O2SAT 94
--- NOTE | 2025-02-01 05:55 | PC.NURSE ---
Pt returned from surgery on 01/31 very agitated, confused, wouldn't leave oxygen on, combative with staff, resistive to care, trying to get out of bed, yelling and swearing at staff, unable to be re-directed. [place] text sent to Dr. Pham, 5 mg IM Zyprexa ordered and administered at 1955 with good effect.
[2025-02-01 06:48] LABS: Hematocrit 45.9 % (42.0-52.0); Hemoglobin 15.4 g/dl (14.0-18.0); Mean Corpuscular HGB Conc 33.6 g/dl (31.0-36.0); Mean Corpuscular Hemoglobin 31.5 pg (27.0-33.0); Mean Corpuscular Volume 93.9 fL (80.0-98.0); NRBC Abs Auto 0.000 X10*3/uL (0.0-0.012); NRBC Pct Auto 0.0 /100WBC (0.0-0.2); PLT CLUMP 1; Red Blood Count 4.89 X10*6/uL (4.60-5.80)
[2025-02-01 06:55] LABS: White Blood Count 18.5 X10*3/uL (4.8-10.8)
--- NOTE | 2025-02-01 07:51 | PM.PNORT ---
Subjective Subjective Date of Service: 02/01/25 Interval history: POD1 s/p rt hip bj Patient is resting in bed comfortably Patient was very agitated overnight - Medicine ordered: 5 mg IM Zyprexa with good effect Pain is managed No additional complaints Physical Exam Vital Signs: Vital Signs: Last Vital Signs Temp 98.2 F 02/01/25 03:48 Pulse 94 02/01/25 03:48 Resp 18 02/01/25 03:48 BP 140/63 H 02/01/25 03:48 Pulse Ox 94 02/01/25 03:48 O2 Del Method Nasal Cannula 02/01/25 03:48 O2 Flow Rate 2 02/01/25 03:48 BMI result Body Mass Index 22.6 Const: General: cooperative, healthy appearing and no acute distress Resp: Effort & Inspection: normal respiratory effort and able to speak in complete sentences Cardio: Rate: regular rate Peripheral pulses: Peripheral pulses 2+ throughout GI: Palpation (GI): Soft to palpation Skin: Lesions: no lesions Rashes: no rashes Extrem: Other: right hip dressing is c/d/i. Able to dorsi/plantar flex. Calf is supple and nontender. Sensation intact. Pedal pulse intact. Procedures Date of Service Date of Service: 02/01/25 Progress Note: A&P Assessment and plan (1) Status post hemiarthroplasty of right hip: Status: Acute Plan Continue pain mgmnt Begin ASA for dvt ppx begin PT/OT for rt hip bj - posterior precautions, WBAT Dispo planning-Pending PT eval, pain mgmnt Time Spent With Patient Time: Total time managing care of this patient today ____ minutes. Quality Stroke Does the patient have a stroke diagnosis?: No VTE Prior VTE?: No VTE Risk Level:: Medical - moderate - high VTE Device Contraindication: Treatment Not Indicated VTE Drug Contraindication: N/A - Med Ordered
[2025-02-01 07:57] LABS: Platelet Count 114 X10*3/uL (160-400)
[2025-02-01 08:00] VITALS: BP 128/61; PULSE 86; RESP 16; TEMP 36.7; O2SAT 95
[2025-02-01] MEDS: 0.9 % Sodium Chloride Flush 3 ML SYRINGE IVFLUSH ×3 (08:19→19:30)
--- NOTE | 2025-02-01 08:56 | HO.POSTANES ---
Post Anesthesia Evaluation Post Anesthesia Evaluation Date of Service: 02/01/25 Vital Signs: Vital Signs Temp Pulse Resp BP Pulse Ox O2 Del Method O2 Flow Rate 02/01/25 08:00 98.1 F 86 16 128/61 95 Nasal Cannula 2.0 02/01/25 03:48 98.2 F 94 18 140/63 H 94 Nasal Cannula 2 01/31/25 23:22 98.9 F 112 H 18 128/76 93 Nasal Cannula 2 Anesthesia: General Mental Status: Awake Pain Control: Satisfactory Nausea/Vomiting: None Hydration: Adequate Anesthesia-Related Issues: No Anes. Related Issues
[2025-02-01 12:00] VITALS: BP 112/66; PULSE 84; RESP 16; TEMP 36.8; O2SAT 90
[2025-02-01 15:20] VITALS: BP 123/68; PULSE 93; RESP 16; TEMP 36.9; O2SAT 92
[2025-02-01] MEDS: oxyCODONE HCl Immed Release 5 MG TABLET PO ×2 (16:05→20:08)
--- NOTE | 2025-02-01 16:59 | P.PNIM_ITS ---
Subjective Subjective Date of Service: 02/01/25 Interval History: Underwent right hip hemiarthroplasty yesterday Became agitated post-op, requiring olanzapine IM Has been calm and cooperative since Currently pleasantly confused Right hip pain ?almost non-existent? Denies nausea, vomiting Has been tolerating diet without difficulties Review of Systems Review of Systems: Yes all other systems are reviewed and are negative Physical Exam 2 Exam: Exam: General: Alert and oriented to self and situation, not to time or place. In no acute distress Resp: CTA bilaterally CVS: S1, S2, RRR GI: +BS, NT, no distention Skin: Warm, dry Neuro: Cranial nerves II-XII grossly intact bilaterally. Motor grossly intact bilaterally Extremities: Right hip with appropriate tenderness at surgical site. Right hip covered in clean dressing Psych: Pleasantly confused. Calm, cooperative. Vital Signs: Vital Signs: Last Vital Signs Temp 98.5 F 02/01/25 15:20 Pulse 93 02/01/25 15:20 Resp 16 02/01/25 15:20 BP 123/68 02/01/25 15:20 Pulse Ox 92 02/01/25 15:20 O2 Del Method Room Air 02/01/25 15:20 O2 Flow Rate 2.0 02/01/25 08:00 BMI result Body Mass Index 22.6 Objective Data Active Medications Acetaminophen (Acetaminophen 325 Mg Tablet) 650 mg PO Q6H PRN PRN Reason: Pain, Mild 1-3,fever,headache Last Admin: 02/01/25 10:53 Dose: 650 mg Documented By: LASHANDA Aspirin (Aspirin 325 Mg Tablet) 325 mg PO BID [facility] Last Admin: 02/01/25 16:04 Dose: 325 mg Documented By: LASHANDA Calcium Carbonate (Calcium Carbonate 750 Mg Tab.Chew) 750 mg PO Q4H PRN PRN Reason: Heartburn Carbidopa/Levodopa (Carbidopa/Levodopa 25/100 Tablet) 1 tab PO BID [facility] Last Admin: 02/01/25 08:19 Dose: 1 tab Documented By: LASHANDA Donepezil HCl (Donepezil Hcl 10 Mg Tablet) 10 mg PO DAILY [facility] Last Admin: 02/01/25 08:19 Dose: 10 mg Documented By: LASHANDA Heparin Sodium (Porcine) (Heparin Sodium,Porcine 5,000 Unit/Ml Vial) 5,000 unit SUBCUT Q8H [facility] Last Admin: 02/01/25 10:53 Dose: 5,000 unit Documented By: LASHANDA Cefazolin Sodium/Dextrose (Ancef) 2 gm in 50 mls @ 100 mls/hr IV POSTOP [facility] Magnesium Hydroxide (Milk Of Magnesia 30 Ml Oral.Susp) 30 ml PO DAILY PRN PRN Reason: Constipation Melatonin (Melatonin 3 Mg Tablet) 9 mg PO BEDTIME PRN PRN Reason: Insomnia Memantine (Memantine Hcl 10 Mg Tablet) 10 mg PO BID [facility] Last Admin: 02/01/25 08:19 Dose: 10 mg Documented By: LASHANDA Mirtazapine (Mirtazapine 15 Mg Tablet) 15 mg PO BEDTIME [facility] Last Admin: 01/31/25 21:08 Dose: Not Given Documented By: AMPARO Non-Admin Reason: Patient Refused Morphine Sulfate (Morphine Sulfate 4 Mg/Ml Cartridge) 2 mg IVPUSH Q4H PRN; Protocol PRN Reason: Pain, Severe (Pain Scale 7-10) Last Admin: 01/31/25 19:34 Dose: 2 mg Documented By: MARICEL Naloxone HCl (Naloxone Hcl 0.4 Mg/Ml Vial) 0.04 mg IVPUSH Q5M PRN PRN Reason: Excessive sedation or RR < 8 Ondansetron HCl (Ondansetron Hcl 4 Mg/2 Ml Vial) 4 mg IVPUSH Q8H PRN PRN Reason: Nausea and Vomiting Oxycodone HCl (Oxycodone Hcl Immed Release 5 Mg Tablet) 5 mg PO Q4H PRN PRN Reason: Pain, Moderate(Pain Scale 4-6) Last Admin: 02/01/25 16:05 Dose: 5 mg Documented By: LASHANDA Quetiapine Fumarate (Quetiapine Fumarate 25 Mg Tablet) 25 mg PO BEDTIME [facility] Last Admin: 01/31/25 21:08 Dose: Not Given Documented By: AMPARO Non-Admin Reason: Patient Refused Sertraline HCl (Sertraline Hcl 25 Mg Tablet) 25 mg PO DAILY [facility] Last Admin: 02/01/25 08:19 Dose: 25 mg Documented By: LASHANDA Sodium Chloride (0.9 % Sodium Chloride Flush 3 Ml Syringe) 3 ml IVFLUSH QSHIFT [facility] Last Admin: 02/01/25 16:07 Dose: 3 ml Documented By: LASHANDA Labs 02/01/25 05:54 01/31/25 05:47 Labs: Laboratory Results - last 24 hr 02/01/25 05:54 MCV 93.9 MCH 31.5 MCHC 33.6 RDW 14.3 Plt Count 114 L D MPV Not Reportable Absolute Nucleated RBC 0.000 Nucleated RBC % (auto) 0.0 Assessment and Plan (1) Status post hemiarthroplasty of right hip: Status: Acute Plan This is a 79-year-old male with pertinent history 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 #. Acute comminuted displaced fracture of the right femoral neck due to mechanical fall: ortho consulted, underwent a right hip hemiarthroplasty yesterday prn pain meds NWB dvt px with heparin sc Seen and evaluated by PT who recommends STR #. Vishal body dementia with parkinsonism and behavioral disturbance: Continue home medications. Maintain sleep-wake cycle. Experienced postop episode of agitation and behavioral disturbance requiring olanzapine IM. Has been calm and cooperative since. Continue to monitor mentation #. Leukocytosis, reactive, improving DVT prophylaxis: chemical Full code. Discussed with the patient and family at bedside Pt requires continued hospitalization while awaiting short-term rehab for right hip fracture requiring right hip bj arthroplasty Quality Stroke Does the patient have a stroke diagnosis?: No VTE Prior VTE?: No VTE Risk Level:: Medical - moderate - high VTE Device Contraindication: Treatment Not Indicated VTE Drug Contraindication: N/A - Med Ordered
[2025-02-01 19:20] VITALS: BP 130/61; PULSE 91; RESP 18; TEMP 36.7; O2SAT 92
[2025-02-02 03:01] VITALS: BP 136/73; PULSE 85; RESP 18; TEMP 36.4; O2SAT 93
[2025-02-02 07:29] VITALS: BP 129/72; PULSE 90; RESP 16; TEMP 36.9; O2SAT 92
--- NOTE | 2025-02-02 08:11 | PM.PNORT ---
Subjective Subjective Date of Service: 02/02/25 Interval history: POD1 s/p rt hip bj Patient is resting in bed comfortably Mental status has improved significantly over the last day Pain is managed No additional complaints Physical Exam Vital Signs: Vital Signs: Last Vital Signs Temp 98.5 F 02/02/25 07:29 Pulse 90 02/02/25 07:29 Resp 16 02/02/25 07:29 BP 129/72 02/02/25 07:29 Pulse Ox 92 02/02/25 07:29 O2 Del Method Room Air 02/02/25 07:29 O2 Flow Rate 2.0 02/01/25 08:00 BMI result Body Mass Index 22.6 Const: General: cooperative, healthy appearing and no acute distress Resp: Effort & Inspection: normal respiratory effort and able to speak in complete sentences Cardio: Rate: regular rate Peripheral pulses: Peripheral pulses 2+ throughout GI: Palpation (GI): Soft to palpation Skin: Lesions: no lesions Rashes: no rashes Extrem: Other: right hip dressing is c/d/i. Able to dorsi/plantar flex. Calf is supple and nontender. Sensation intact. Pedal pulse intact. Procedures Date of Service Date of Service: 02/02/25 Progress Note: A&P Assessment and plan (1) Status post hemiarthroplasty of right hip: Status: Acute Plan Continue pain mgmnt Continue ASA for dvt ppx begin PT/OT for rt hip bj - posterior precautions, WBAT Dispo planning- PT eval, pain mgmnt Time Spent With Patient Time: Total time managing care of this patient today ____ minutes. Quality Stroke Does the patient have a stroke diagnosis?: No VTE Prior VTE?: No VTE Risk Level:: Medical - moderate - high VTE Device Contraindication: Treatment Not Indicated VTE Drug Contraindication: N/A - Med Ordered
[2025-02-02] MEDS: 0.9 % Sodium Chloride Flush 3 ML SYRINGE IVFLUSH (08:20)
[2025-02-02] MEDS: oxyCODONE HCl Immed Release 5 MG TABLET PO ×2 (08:48→14:47)
--- NOTE | 2025-02-02 11:02 | PM.DS ---
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 Patient states [place] was [place] when he tripped and fell landing on his right side. He did not lose consciousness before the fall. No chest pain or palpitations prior to the fall. No rhythmic jerking movement of extremities. Patient thinks he missed a step and fell on his right side. He is complaining of right hip pain since the fall. Patient at baseline ambulates without assistance. No fever, chills, shortness of breath, abdominal pain, changes in urinary or bowel habits. In the emergency department, imaging with acute comminuted displaced right femoral neck fracture. Hospital course: Pt was admitted to the hospital for acute comminuted displaced right femoral neck fracture after falling in the community while playing golf. Pt was seen and evaluated by Orthopedics and underwent uneventful right hip hemiarthroplasty on 01/31. Patient's pain has been well managed, and currently he is resting comfortably blood with any out any acute complaints. Was seen and evaluated by Physical therapy and will be discharged to short-term rehab for improvement to strength, conditioning, and mobility. Pt will be discharged on a short course of oxycodone for pain management, and aspirin 325 mg b.i.d. x6 weeks for DVT prophylaxis. Weight bearing as tolerated. Rest of hospital stay as listed below as listed in problem list. Pt should continue all of his other home medications. Vishal body dementia with parkinsonism and behavioral disturbance Experienced postop delirium with episode of agitation and behavioral disturbance requiring olanzapine IM on 10/31 at 19:44 Has since been calm and cooperative and mentation back to baseline Continue carbidopa levodopa, donepezil, memantine, mirtazapine, quetiapine, and sertraline Time Attestation Discharge Coordination Time (in mins): 35 Quality: Safe Use of Opioids Does Pt have an Active Cancer Diagnosis on the Problem List?: No Quality: Stroke Does the patient have a stroke diagnosis?: No Physical Exam Exam: Exam: General: Awake and alert, oriented to self and situation, not to time or place. In no acute distress Resp: CTA bilaterally CVS: S1, S2, RRR GI: +BS, NT, no distention Skin: Warm, dry Neuro: Cranial nerves II-XII grossly intact bilaterally. Motor grossly intact bilaterally Extremities: Right hip with appropriate tenderness at surgical site. Right hip covered in clean pressure dressing Psych: Appropriate affect Vital Signs: Vital Signs: Last Vital Signs Temp 98.5 F 02/02/25 07:29 Pulse 90 02/02/25 07:29 Resp 16 02/02/25 07:29 BP 129/72 02/02/25 07:29 Pulse Ox 92 02/02/25 07:29 O2 Del Method Room Air 02/02/25 07:29 O2 Flow Rate 2.0 02/01/25 08:00 BMI result Body Mass Index 22.6 DS: Data Data Completed and Pending Pending studies at discharge: Pending at discharge 01/31/25 17:29 Surgical [PTH] Routine Discharge Plan Discharge Anticipated Discharge Date/Time: 02/02/25 12:00 Patient Disposition: Xfer [facility] Discharge Diagnosis: Acute comminuted displaced fracture of right femoral neck Referrals: Haider Varela MD [Primary Care Provider, Internal Medicine] - 1 Week Elgin Thomas PA-C [Physician Mangle Roll Operator, Orthopedics] - 2 Weeks Referral Note: 02/17/25 10:30 [facility] Orthopedic Surgeons Elgin Thomas PA-C Discharge Medications: New oxycodone 5 mg capsule 5 mg PO Q6H PRN (Reason: pain, severe) Qty: 12 0RF Rx Instructions: Partial Fill upon patient request. Take one capsule up to 4 times a day for severe pain. aspirin 325 mg tablet 325 mg PO BID 42 Days Qty: 84 0RF Rx Instructions: Take one tablet twice a day for DVT prophylaxis for the next 6 weeks Continued carbidopa-levodopa 25-100 mg tablet 1 tab PO BID Qty: 60 0RF Rx Instructions: One tab with breakfast, 1 tab with lunch daily melatonin 10 mg Tablet 10 mg PO BEDTIME PRN (Reason: Sleep) mirtazapine 15 mg tablet 15 mg PO BEDTIME donepezil 10 mg tablet 10 mg PO DAILY Qty: 90 1RF memantine 10 mg tablet 10 mg PO BID Qty: 180 1RF quetiapine 25 mg tablet 25 mg PO BEDTIME Qty: 90 1RF sertraline 25 mg tablet 25 mg PO DAILY Qty: 90 1RF Discharge Orders: Discharge Order (Routine); Ordered 02/02/25 Ordered By: Hadley Negro Activity on Discharge: As tolerated Stand Alone Forms: Patient Portal Discharge page Print Language: Bruneian Care Plan Goals: See below Health Concerns: Right hip fracture Post-op delirium Dementia Plan of Treatment: You were admitted to the hospital for a right hip fracture after falling in the community while playing golf. You were seen and evaluated by Orthopedics and underwent right hip replacement and will be discharged to short-term rehab for improvement in strength, condition, and mobility. Weight bearing as tolerated. -- you will be prescribed a short course of oxycodone for severe pain. Take up to 4 times daily. -- take aspirin 325 mg twice a day for the next 6 weeks to help prevent deep vein thrombosis -- Follow up with orthopedics in 2 weeks -- Continue all of your other home medications Physical therapy for hip hemiarthroplasty: WBAT, posterior precautions, gait training, range of motion, strength Limit stair climbing No showering, no tub bath-keep dressing clean dry and intact No driving for 6 weeks Continue aspirin twice a day for 6 weeks Follow-up with [facility] in 2 weeks Assessment: See discharge summary
--- NOTE | 2025-02-02 13:05 | MHC.CM.PN ---
PT WILL DC TO [facility] AT 1530 HOURS TODAY VIA [facility]
--- NOTE | 2025-02-03 09:10 | W.PM.OPN ---
Operative Note Operative Note Date of Service: 01/31/25 Narrative: Date of Service: 01/31/25 Pre-op diagnosis: Right femoral neck fracture Post-op diagnosis: same Procedure: Right hip hemiarthroplasty Implants: [place] Accolade2 #4 127 deg with -3/48 bipolar Surgeon: Sander Perez MD Anesthesia: GLMA and local Was an Marketing Administrative Assistant used for this Procedure?: Yes Marketing Administrative Assistant: Pamella Albright Estimated blood loss (mL): 200 IV fluids (mL): 1,000 Pathology: other Condition: stable Disposition: PACU Procedure in detail: Patient was brought to the operative room placed in the lateral decubitus position. All bony prominences were well padded and the was prepped and draped in standard sterile fashion. IV antibiotics per weight were administered and a time-out was called to identify proper site proper procedure proper surgeon. Radiographs were available and confirmed. I began by making a curvilinear incision over the posterolateral aspect of the greater trochanter. Dissection was taken down to the tensor fascia which was incised in line with the incision and a Charnley retractor was placed. The hip was internally rotated and the external rotators were identified. All vessels in the area were cauterized and a full-thickness capsular/external rotator layer was developed in a hockey-stick fashion starting just distal to the piriformis. This layer was tagged and the displaced femoral neck fracture was identified. Clean-up cuts was performed while protecting the posterolateral soft tissues and the head was removed and measured (48 mm) on the back table. I then copiously irrigated the acetabulum and removed all bony fragments. Once this was done I used a cookie cutter to lateralize and a Charnley awl to identify the canal and then sequentially broached up to a 127 deg #4. I then trialed with a standard head and a bipolar component matching the femoral head size. I was satisfied with the range of motion and stability and length using a -3/48. Therefore I removed all instrumentation and copiously irrigated. I then placed my final femoral implant and then retrialed. I was satisfied with the -3/48 implants. My final bipolar components were then placed. I closed the capsular layer with FiberWire and then irrigated copiously. I performed a layered closure with fabian on skin. The patient was placed in sterile dressing extubated brought to recovery room in stable condition there were no known complications.
== END 2025-02-02 15:37 | disposition skilled nursing facility (03) | DRG 522 ==
LOC: HO.ED 20:57 → HO.EDOVER 23:29 → HO.S3 01-31 00:07
PROVIDERS: Hospitalist; Orthopaedic Surgery; Admitting Provider Student in an Organized Health Care Education/Training Program; Emergency Provider Emergency Medicine; PCP Internal Medicine; Visit Provider Student in an Organized Health Care Education/Training Program
PROC: 0SRR0JA Replacement of Right Hip Joint, Femoral Surface with Synthetic Substitute, Uncemented, Open Approach (ICD-10-PCS; principal; 2025-01-31 15:40)
DX: S72.011A Unspecified intracapsular fracture of right femur, initial encounter for closed fracture (principal); F02.818 Dementia in other diseases classified elsewhere, unspecified severity, with other behavioral disturbance; W19.XXXA Unspecified fall, initial encounter; G20.C Parkinsonism, unspecified; G31.83 Neurocognitive disorder with Lewy bodies; Y93.53 Activity, golf; Z79.899 Other long term (current) drug therapy
CPT/HCPCS: 36415; 70450; 72125; 72170; 73700; 80048; 80076; 81001; 85025; 85027; 85610; 86850; 86900; 86901; 88305; 88311; 93005; 97162; 97166; 97530; 99285; C1776; J0131; J0690; J1644; J2003; J2270; J2359; J2371; J2405; J2704; J2795; J3010; J7120

== ENCOUNTER → 2025-01-30 21:17 | Outpatient (BNV) | payer MEDICARE, OTHER, SELFPAY | PROVIDERS: Admitting Provider Student in an Organized Health Care Education/Training Program; Emergency Provider Emergency Medicine; PCP Internal Medicine; Visit Provider Internal Medicine Cardiovascular Disease | DX: Z13.6 Encounter for screening for cardiovascular disorders (principal); W19.XXXA Unspecified fall, initial encounter | CPT/HCPCS: 93010 ==

== ENCOUNTER 2025-01-30 23:18 | Outpatient (BNV) | payer MEDICARE, OTHER, SELFPAY | END 2025-01-31 16:11 | PROVIDERS: Admitting Provider Student in an Organized Health Care Education/Training Program; Emergency Provider Emergency Medicine; PCP Internal Medicine; Visit Provider Radiology Diagnostic Radiology | DX: Z96.641 Presence of right artificial hip joint (principal) | CPT/HCPCS: 72170 ==

== ENCOUNTER → 2025-01-30 23:18 | Outpatient (BNV) | payer MEDICARE, OTHER, SELFPAY | PROVIDERS: Admitting Provider Student in an Organized Health Care Education/Training Program; Emergency Provider Emergency Medicine; PCP Internal Medicine; Visit Provider Physician Assistant | DX: Z96.641 Presence of right artificial hip joint (principal) | CPT/HCPCS: 27236; 99024; 99223 ==

== ENCOUNTER → 2025-01-30 23:18 | Outpatient (BNV) | payer MEDICARE, OTHER, SELFPAY | PROVIDERS: Admitting Provider Student in an Organized Health Care Education/Training Program; Emergency Provider Emergency Medicine; PCP Internal Medicine; Visit Provider Student in an Organized Health Care Education/Training Program | DX: Z96.641 Presence of right artificial hip joint (principal) | CPT/HCPCS: 99233; 99239 ==

== ENCOUNTER 2025-02-17 06:39 | Outpatient (REF) | payer MEDICARE, OTHER, SELFPAY ==
--- NOTE | ~2025-02-17 | XR_ITS ---
EXAMINATION: XR HIP, RIGHT CLINICAL INFORMATION: M25.551 - Pain in right hip COMPARISON: January 31, 2025 TECHNIQUE: AP and cross lateral view of the right hip. FINDINGS: Total metallic right hip prosthesis with an acetabular and femoral component well-seated in the osseous structures. No gross malalignment. Skin fabian are present, unchanged. Vascular calcifications. XR/XR hip RT min 2V IMPRESSION: Status post total right hip arthroplasty prosthesis, intact and well aligned. Satisfactory. Electronically signed by: Michael Izaguirre MD 02/17/2025 10:41 AM EDT
--- OUTSIDE RECORDS SUMMARY | 2025-02-17 06:41 | XMS_ITS | Encounter Summary ---
Author Organization [facility] Address [address] [place] [id number] Phone Care Team Providers Care Document Review Specialist Name Role Phone Haider Varela MD Unavailable [phone] Haider Varela MD Primary Care Provider Reason for Visit * Reason Onset Date Comments TCM Visit 02/08/2025 Encounter Details Date Type Department Care Team ([facility] st Contact Info) Description 02/08/2025 Telephone [employer] [facility] [address] [place] [address] Haider Varela MD [address] [place] [address] [email or web address] TCM Visit Social History Tobacco Use Types Packs/Day Years Used Date Smoking Tobacco: Former Cigarettes 1 62.7 S tarted: 1962 Smokeless Tobacco: Never Alcohol Use Standard Drinks/Week Comments Not Currently 0 (1 standard drink = 0.6 oz pur e alcohol) stopped drinking 09/2021 Education Answer Date Recorded Are you interested in more education? Not on reynaldo e 10/10/2022 Are you concerned about learning? Not on file 10/10/2022 No 10/10/2022 No 10/10/2022 Digital Access Answer Date Recorded No 11/10/2022 No 11/10/2022 Reliable internet access at home? Not on file 11/10/2022 Device with a working camera? Not on file Intimate Partner Violence Answer Date R ecorded Denied Basic Needs Not on file 03/19/2023 In the past 12 months have y ou been in a relationship with a person who hurts, threatens, or tries to control you? No 03/19/2023 Worried food would run out Not on file 03/19 In the past 12 months have y ou been in a relationship with a person who hurts, threatens, or tries to control you? No 03/19/2023 Sex and Gender Information Value Date Recorded Sex Assigned at Not on file Legal Sex Male 10:07 PM EDT Gender Identity Not on file Sexual Orientation Not on file documented as of this encounter Progress Notes * Filomena Kemp RN - 02/15/2025 8:22 AM EDT Post Discharge Summary: No clinical contact within 2 business days Post discharge call documentation: Is a post discharge call required?: Yes Please indicate post discharge status: 1st attempt not reached, Patient not reached - post discharge complete Patient eligible for TCM billing (reached or two unsuccessful attempts within two business days post discharge)?: No General: Discharge information: Admit date: 02/02/25 Discharge date: 02/10/25 Discharge from: 02/02/25 hospital and 02/10/25 [facility] Reason for hospitalization: right femur fracture Safety and self care: Assistive devices/equipment and home services: Medication review: Follow up/conclusion: Was a follow up appointment scheduled with the patient's PCP office?: Yes Date of next appointment with the PCP: 02/21/25 * Brook Marrufo - 02/14/2025 4:24 PM EDT Urgent fax request sent for notes/results * Brook Marrufo - 02/14/2025 3:56 PM EDT Called and spoke to patients , states they have appointments every day this week. Requested scheduling next week. Patient scheduled for 02/21. Will need med rec * BrianRashmi rush Jacob - 02/14/2025 3:35 PM EDT Pt returned call please call back Central Support Recruiting Team Lead (Please do not reply to this user; this inbox is not monitored.) Thank you. * Blanquita Garcia - 02/14/2025 2:40 PM EDT Spoke with patient he asked that I call back in an hour when his is here. * Blanquita Garcia - 02/08/2025 2:54 PM EDT Spoke with patients , she requests a call back on Thursday after he has been discharged. * Cris Toro - 02/08/2025 2:39 PM EDT Transitional Care Management New Patient: YES/NO: yes Hospitalization Name: [facility] Discharge Date:02/02/25 hospital and 02/10/25 [facility] Reason for Visit+ Diagnosis:right femur fracture Is the discharge summary in patient chart:YES/NO: yes If not did you inform the patient/patient advocate to fax it to the office: YES/NO: yes Please inform the patient/patient advocate to fax and bring a copy to the appt. Appointment Date: na Is the appt: virtual in person: in person Awareness: Appt need to be schedule with in 2 to 14 calendar days from discharge date Additional Note (if applicable): [facility] Call Center CSS Agent (Please do not reply to this user, as this inbox is not monitored. Thank you.) Thank you. documented in this encounter Plan of Treatment Upcoming Encounters Date Type Department Care Team (Late st Contact Info) Description 02/21/2025 2:40 PM EDT Office Visit [facility] Internal Medicine [address], [place] [phone] Harriett Osuna PA-C [address], [place] [phone] 05/05/2025 9:30 AM EST Office Visit [facility] Internal Medicine [address] [place] [address] Haider Vraela MD [address], [place] [phone] documented as of this encounter Visit Diagnoses Not on filedocumented in this encounter Additional Health Concerns Assessment Noted Time PHQ-9 Depression Total Score: 11 025 2:23 PM EDT PHQ-2 Depression Total Score: 3 01/19/20 25 2:23 PM EDT documented as of this encounter Care Teams Document Review Specialist Relationship Specialty Start Date End Date Haider Varela MD [address], [place] [phone] PCP - General 06/18/17 Haider Varela MD [address] [place] [phone] Historical LMR Provider 04/02/17 documented as of this encounter Additional Source Comments The information contained in this document represents components of the legal health record. It is not the complete legal health record.[facility]
--- OUTSIDE RECORDS SUMMARY | 2025-02-17 06:41 | XMS_ITS | Encounter Summary ---
Author Organization [facility] Address [address] [place] [phone] Phone Care Team Providers Care Business Law Professor Name Role Phone Haider Varela MD Unavailable [phone] Haider Varela MD Primary Care Provider [phone] Encounter Details Date Type Department Care Team (Late Contact Info) Description 03/21/2022 Procedure Pass [facility], Ct Scan - [address] [address] Social History Tobacco Use Types Packs/Day Years [...] Department Care Team (Late Contact Info) Description 02/21/2025 2:40 PM EDT Office Visit [facility] Internal Medicine [address] [place] [address] Harriett Osuna PA-C [address] [place] [address] 05/05/2025 9:30 AM EST Office Visit [facility] Internal Medicine [address] [place] [address] Haider Varela MD [address] [place] [address] [email or web address] documented as of this encounter Visit Diagnoses Not on filedocumented in this encounter Additional Health Concerns Assessment Noted Time PHQ-2 Depression Total Score: 0 09/21/19 22 10:51 AM EDT documented as of this encounter Care Teams Business Law Professor Relationship Specialty Start Date End Date Haider Varela MD [address] [place] [address] PCP - General 06/18/17 Haider Varela MD [address] [place] [address] Historical LMR Provider 04/02/17 documented as of this encounter Additional Source Comments The information contained in this document represents components of the legal health record. It is not the complete legal health record.[facility]
--- OUTSIDE RECORDS SUMMARY | 2025-02-17 06:41 | XMS_ITS | Clinical Summary ---
Author Organization [facility] Address [address] [place] [address] Phone Care Team Providers Care Senior Sql Dba Name Role Phone Haider Varela MD Unavailable Haider Varela MD Primary Care Provider [phone] Allergies Active Allergy Reactions Criticality Noted Date Comments Fluticasone Propion-Salmeterol Cough 05/14/2018 Risperidone High 11/01/2024 Passed out while on medication and spouse couldn't wake pt up. Typhoid Vaccine 09/29/2017 Had a red line going down arm and was told not to get it again Medications multivitamins capsule Take 1 capsule by mouth daily. Active magnesium oxide 250 mg (150 mg elemental) Tab Take 500 mg by mouth daily. Active acetaminophen (TYLENOL) 325 mg tablet Take 650 mg by mouth as needed. 1 Active fluticasone propionate (FLONASE) 50 mcg/actuation nasal spray 1 spray by Nasal route daily. Active triamcinolone acetonide 0.1 % ointment As needed 3 Active cycloSPORINE (RESTASIS) 0.05 % suspension Place 1 drop into each eye daily. As needed 3 Active tacrolimus (PROTOPIC) 0.1 % ointment Apply 1 Application topically daily as needed. 4 Active betamethasone, augmented, (DIPROLENE AF) 0.05 % cream Apply 1 Application topically daily as needed. 3 Active omeprazole (PRILOSEC) 40 MG capsule Take 1 capsule (40 mg total) by mouth daily. 90 capsule 3 4 Active memantine (NAMENDA) 10 MG tabletIndication s:Moderate Alzheimer's dementia without behavioral disturbance, psychotic disturbance, mood disturbance, or anxiety, unspecified timing of dementia onset Take 1 tablet (10 mg total) by mouth 2 (two) times a day. 180 tablet 3 4 Active donepeziL (ARICEPT) 10 MG tablet TAKE 1 TABLET DAILY 90 tablet 3 4 Active traZODone (DESYREL) 100 MG tablet Take 100 mg by mouth nightly at bedtime. Active melatonin 5 mg Tab Take 10 mg by mouth nightly at bedtime. Active ketoconazole 2 % cream Apply 1 Application topically 2 (two) times a day as needed. To face and ears 5 Active ammonium lactate (AMLACTIN) 12 % cream Apply 1 Application topically 2 (two) times a day as needed. To back 5 Active carbidopa-levodo pa (SINEMET) 25-100 mg per tablet Take 1 tablet by mouth 2 (two) times a day. 60 tablet 5 Active QUEtiapine (SEROQUEL) 25 MG tablet Take 25 mg by mouth nightly at bedtime. 5 Active mirtazapine (REMERON) 15 MG tablet Take 15 mg by mouth nightly at bedtime. 5 Active sertraline (ZOLOFT) 25 MG tablet Take 1 tablet by mouth every morning. 5 Active Active Problems Problem Noted Date Diagnosed Date AAA (abdominal aortic aneurysm) 11/15/2018 Primary insomnia 09/29/2017 Pure hypercholesterolemia 09/29/2017 Acute maxillary sinusitis 09/29/2017 Chronic obstructive pulmonary disease 09/29/2017 Assessment & Plan (09/29/2017 12:36 PM EDT): Discussed likely COPD exacerbation (mild) due to likely viral respiratory infection. Begin Bactrim as directed. Continue probiotic daily. Restart Advair, as directed. Please f/u if any increasing SOB or if any worsening sx. Gastroesophageal reflux disease 09/29/2017 Hypercholesterolemia 09/29/2017 Mild cognitive impairment 09/29/2017 Cough 09/29/2017 Assessment & Plan (09/29/2017 12:26 PM EDT): Suggested daytime use of guaifenesin (without decongestant). Avoid dosing in the evening/before bedtime so as not to provoke coughing overnight. He will trial tessalon perles at bedtime only, to allow for rest. Please f/u if any worsening or persistent sx. Postnasal drip 09/29/2017 Assessment & Plan (09/29/2017 12:19 PM EDT): Continue nasal saline PRN. Viral respiratory infection 09/29/2017 Assessment & Plan (09/29/2017 12:36 PM EDT): Please continue rest, hydration, balanced diet, and activity as able. Encounters Date Type Department Care Team Description 02/08/2025 Telephone [facility] [address] [place] [address] Haider Varela MD TCM Visit 02/01/2025 Orders Only [facility] Internal Medicine [address] [place] [address] Tianna Holloway MD 01/31/2025 Orders Only [facility] [address] [place] [address] Tianna Holloway MD 01/24/2025 Telephone [facility] Internal Medicine [address] [place] [address] Haider Varela MD Results 01/18/2025 3:09 PM EDT - 01/18/2025 11:59 PM EDT Hospital Encounter [facility] [address] [place] [address] Haider Varela MD Discharge Disposition: Home or Self Care 01/18/2025 2:30 PM EDT Office Visit [facility] Internal [facility] [address] [place] [address] Haider Varela MD Alzheimer's disease (Primary Dx); Major depressive disorder with current active episode, unspecified depression episode severity, unspecified whether recurrent; Pure hypercholesterolemia from Last 3 Months Immunizations Immunization Administration Dates Next Due COVID-19 (Pre-04/06) Moderna Vaccine, mRNA, PF 10/12/2021,04/09/2021,09/28/2020,08/29 COVID-19 (Pre-04/06) Pfizer Vaccine, Bivalent 12+ 02/14/2023 DTaP, unspecified formulation 09/17/2010 INFLUENZA, SPLIT VIRUS, TRIVALENT PF 02/02/2020 INFLUENZA, SPLIT VIRUS, TRIV ALENT W/ PRESERVATIVE IM 02/13/2019,02/13/2017,01/30/2017,02/22 Influenza High-Dose Quadriva lent Preservative Free IM 02/14/2023,02/15/2022,01/31/2021 Influenza High-Dose Trivalen t Preservative Free IM 02/18/2018,01/30/2017,02/14/2016 Influenza Trivalent Adjuvant ed Preservative free IM 02/17/2024,02/08/2019 Influenza, Unspecified Formulation 02/13,02/14/2016,02/22/2015,02/22,03/15/2012,03/15/2011,03/15/2010 ,06/15/2009,03/15/2009,04/15/2008,06/2006,05/30/2004 Pneumococcal conjugate PCV13 07/06/2019,09/25/19 17 Pneumococcal polysaccharide PPSV23 10/21/2011 Pneumococcal, Unspecified Formulation 10/21/2011 RSV Vaccine (bivalent) 06/24/2023 Td (adult) 5 Lf Tetanus Toxo id, PF, Adsorbed 02/15/2021 Tdap 09/17/2010 Zoster live 06/04/2015 Zoster recombinant 05/22/2020,02/17/2020 Family History Medical History Relation Comments Colon cancer Father Relation Status Comments Father Mother (Age 90) car accident a nd had osteoporosis Social History Tobacco Use Types Packs/Day Years [...] on file Sexual Orientation Not on file Last Filed Vital Signs Vital Sign Reading Time Taken Comments Blood Pressure 120/72 01/18/2025 2:55 PM EDT Pulse 76 01/18/2025 2:27 PM EDT Temperature 36.2 C (97.2 F) 01/18/2025 2:27 PM EDT Respiratory Rate 12 01/18/2025 2:27 PM EDT Oxygen Saturation 96% 01/18/2025 2:27 PM EDT Inhaled Oxygen Concentration - - Weight 69.1 kg (152 lb 6.4 oz) 01/18/2025 2:27 P M EDT Height 170 cm (5' 6.93 ) 01/18/2025 2:27 PM EDT Body Mass Index 23.92 01/18/2025 2:27 PM EDT Plan of Treatment Upcoming Encounters Date Type Department Care Team (Late st Contact Info) Description 02/21/2025 2:40 PM EDT Office Visit [facility] [address] [place] [address] Harriett Osuna PA-C [address] [place], [place] [id number] [email or web address] 05/05/2025 9:30 AM EST Office Visit [facility] [address] [place] [address] Haider Varela MD [address] [place] [address] [email or web address] Health Maintenance Due Date Last Done Comments COLOGUARD 09/28/1991 FIT TEST 09/28/1991 FOBT 09/28/1991 SIGMOIDOSCOPY 09/28/1991 VIRTUAL COLONOSCOPY 09/28/1991 COLONOSCOPY 05/06/2024 05/06/2019, 06/01/2014 COLORECTAL CANCER SCREENING 05/06/2024 INFLUENZA VACCINE (#1) 2025 , 02/14/2023, 02/15/2022, Additional history exists COVID-19 VACCINE ( season) 2025 02/17/2024, 02/14/2023, 03/04/2022, Additional history exists REPEAT PHQ 02/18/2025 01/18/2025, 01/18/2025 DEPRESSION SCREENING 01/18/2026 01/18/2025, 01/19/20 25 LIPID PANEL 02/04/2029 02/05/2024, 04/17, 09/22/2022, Additional history exists Adult Td,Tdap Booster 02/15/2031 02/15/2021, 011 PNEUMOCOCCAL VACCINES (50+ years) Completed 07/06/2019, 09/24/2016, 10/21/2011 ZOSTER VACCINES Completed 05/22/2020, 09/2019, 06/04/2015 RSV VACCINE Completed 06/24/2023 HEPATITIS C SCREENING Completed 07/14/2023 , 12/06/2019, 12/06/2019 SMOKING STATUS SCREENING (Once After 26 Yrs) Completed 01/18/2025 HEPATITIS A VACCINES Aged Out No long er eligible based on patient's age to complete this topic HIB VACCINES Aged Out No longer eligi ble based on patient's age to complete this topic MENINGOCOCCAL VACCINES (ACWY) Aged Out No longer eligible based on patient's age to complete this topic MENINGOCOCCAL VACCINES (B) Aged Out N o longer eligible based on patient's age to complete this topic Medical Devices Not on file Procedures Procedure Name Priority Date/Time Associated Diagnosis Comments OUTSIDE IMAGING Routine 01/30/2025 2:33 PM EDT OUTSIDE IMAGING Routine 01/30/2025 2:32 PM EDT OUTSIDE IMAGING Routine 01/30/2025 12:08 PM EDT OUTSIDE IMAGING Routine 01/30/2025 9:31 AM EDT OUTSIDE XR PELVIS REPORT ONLY Routine 01/30/2025 6:55 AM EDT COMPREHENSIVE METABOLIC PANEL Routine 01/18/2025 3:11 PM EDT Gastroesophageal reflux disease, unspecified whether esophagitis present Moderate Alzheimer's dementia without behavioral disturbance, psychotic disturbance, mood disturbance, or anxiety, unspecified timing of dementia onset Impaired fasting blood sugar CBC AND DIFFERENTIAL Routine 01/18/2025 3:11 PM EDT Gastroesophageal reflux disease, unspecified whether esophagitis present TSH Routine 01/18/2025 3:11 PM EDT Moderate Alzheimer's dementia without behavioral disturbance, psychotic disturbance, mood disturbance, or anxiety, unspecified timing of dementia onset Impaired fasting blood sugar HEMOGLOBIN A1C Routine 01/18/2025 3:11 PM EDT Impaired fasting blood sugar VITAMIN B12 Routine 01/18/2025 3:11 PM EDT Moderate Alzheimer's dementia without behavioral disturbance, psychotic disturbance, mood disturbance, or anxiety, unspecified timing of dementia onset LIPID PANEL Routine 02/05/2024 8:41 AM EDT Pure hypercholesterolemia HEPATITIS C ANTIBODY, QUALITATIVE Routine 07/14/2023 8:48 AM EST Liver function abnormality HM COLONOSCOPY FOR RESULT ENTRY ONLY Routine 05/06/2019 from Last 3 Months or Most Recently Relevant to Health Maintenance Results * Outside Imaging Report Only (01/30/2025 2:33 PM EDT) us Historical Provider IMG XR CHEST Final Res ult * Outside Imaging Report Only (01/30/2025 2:32 PM EDT) Historical Provider IMG XR CHEST Final Res ult * Outside Imaging Report Only (01/30/2025 12:08 PM EDT) Historical Provider IMG XR CHEST Final Res ult * Outside Imaging Report Only (01/30/2025 9:31 AM EDT) Historical Provider IMG XR CHEST Final Res ult * Outside XR Pelvis Report Only (01/30/2025 6:55 AM EDT) Historical Provider IMG XR PELVIS Final Res ult * (ABNORMAL) Comprehensive metabolic panel (01/18/2025 3:11 PM EDT) SODIUM 141 133 - 146 mmol/L [facility] POTASSIUM 4.1 3.3 - 5.1 mmol/L [facility] CHLORIDE 102 96 - 108 mmol/L [facility] CO2 26 21 - 35 mmol/L [facility] BUN 18 6 - 19 mg/dL [facility] CREATININE 1.00 0.5 - 1.5 mg/dL [facility] GLUCOSE 138(H) 70 - 99 mg/dL [facility] ALBUMIN 4.1 3.9 - 4.8 g/dL [facility] TOTAL PROTEIN 7.1 6.5 - 8.0 g/dL [facility] CALCIUM 9.7 8.4 - 10.3 mg/dL [facility] ALKALINE PHOSPHATASE 75 39 - 117 U/L [facility] TOTAL BILIRUBIN 0.7 0.0 - 1.2 mg/dL [facility] AST 19 0 - 37 U/L [facility] ALT 6 0 - 40 U/L [facility] GLOBULIN 3.0 1 - 4.8 g/dL [facility] EGFR 77 >59 mL/min/1.7 3m2 [facility] Comment:Estimated glomerular filtration rate calculated using the CKD-EPI refit equation. ANION GAP 17 10 - 20 mmol/L [facility] Blood 01/18/2025 3:11 PM EDT 01/18/2025 3:14 PM EDT us Haider Varela MD LAB BLOOD ORDERABLES Final Re sult [facility] [address] [place] [address] * (ABNORMAL) CBC and differential (01/18/2025 3:11 PM EDT) WBC 8.65 4.00 - 11.00 K/uL [facility] RBC 5.03 4.50 - 5.90 M/uL [facility] HGB 15.5 13.5 - 17.5 g/dL [facility] HCT 47.9 41.0 - 53.0 % [facility] PLT 155 150 - 450 K/uL [facility] MCV 95.2 80.0 - 100.0 fL [facility] MCH 30.8 27.0 - 31.0 pg [facility] MCHC 32.4 32.0 - 36.0 g/dL [facility] RDW 13.9 11.5 - 14.5 % [facility] MPV 13.9(H) 8.4 - 12.0 fL [facility] NRBC 0.00 0.00 /100 WBCs [facility] ABSOLUTE NRBC 0.00 0.00 K/uL [facility] DIFF METHOD Auto [facility] NEUTS 64.3 48.0 - 76.0 % [facility] LYMPHS 24.7 18.0 - 41.0 % [facility] MONOS 9.5 4.0 - 11.0 % [facility] EOS 0.0 0.0 - 5.0 % [facility] BASOS 1.0 0.0 - 1.5 % [facility] Granulocytes, immature (%) 0.5 0.0 - 0.9 % [facility] ABSOLUTE NEUTS 5.56 1.92 - 7.60 K/uL [facility] ABSOLUTE LYMPHS 2.14 0.72 - 4.10 K/uL [facility] ABSOLUTE MONOS 0.82 0.16 - 1.10 K/uL [facility] ABSOLUTE EOS 0.00 0.00 - 0.50 K/uL [facility] ABSOLUTE BASOS 0.09 0.00 - 0.15 K/uL [facility] Granulocytes, immature 0.04 0.00 - 0.09 K/uL [facility] Blood 01/18/2025 3:11 PM EDT 01/18/2025 3:14 PM EDT us Haider Varela MD LAB BLOOD ORDERABLES Final Re sult [address] [address] * TSH (01/18/2025 3:11 PM EDT) TSH 1.00 0.27 - 4.20 uIU/mL [facility] Blood 01/18/2025 3:11 PM EDT 01/18/2025 3:14 PM EDT us Haider Varela MD LAB BLOOD ORDERABLES Final Re sult Performing Organization Address [facility]/ZIP Co de Phone Number [address] [address] * Hemoglobin A1c (01/18/2025 3:11 PM EDT) HEMOGLOBIN A1C 5.7 4.3 - 5.8 % [facility] Blood 01/18/2025 3:11 PM EDT 01/18/2025 3:14 PM EDT us Haider Varela MD LAB BLOOD ORDERABLES Final Re sult Performing Organization Address [facility]/ZIP Co de Phone Number [address] [address] * Vitamin B12 (01/18/2025 3:11 PM EDT) VITAMIN B12 393 232 - 1,245 pg/mL [facility] Blood 01/18/2025 3:11 PM EDT 01/18/2025 3:14 PM EDT Haider Varela MD LAB BLOOD ORDERABLES Final Re sult Performing Organization Address [facility] Co de Phone Number [address] [address] * (ABNORMAL) Lipid panel (02/05/2024 8:41 AM EDT) HDL 53 mg/dL [facility] Comment: Interpretation <40 mg/dL: Low HDL cholesterol (major risk factor for CHD) Greater than or equal to 60 mg/dL: High HDL cholesterol ( negative risk factor for CHD) HDL - cholesterol is affected by a number of factors, e.g. smoking, excerise, hormones, sex and age. CHOLESTEROL 128 0 - 240 mg/dL [facility] TRIGLYCERIDES 72 30 - 160 mg/dL [facility] LDL 61 50 - 129 mg/dL [facility] Comment: LDL levels in terms of risk for coronary heart disease: <100 mg/dL: Optimal 100-129 mg/dL: Near or above optimal 130-159 mg/dL: Borderline high 160-189 mg/dL: High >190 mg/dL: Very High CARDIAC RISK RATIO 2.4(L) 3.4 - 5.0 [facility] Blood 02/05/2024 8:41 AM EDT 02/05/2024 8:44 AM EDT Haider Varela MD LAB BLOOD ORDERABLES Final Re sult Performing Organization Address City/[facility]/ZIP Co de Phone Number [address] [address] * Hepatitis C antibody, qualitative (07/14/2023 8:48 AM EST) HCV NON-REACTIV E NON-REACTI VE [facility] Blood 07/14/2023 8:48 AM EST 07/14/2023 8:51 AM EST us Haider Varela MD LAB BLOOD ORDERABLES Final Re sult [facility] [address] [place] [address] * COLONOSCOPY FOR RESULT ENTRY ONLY (05/06/2019) Colonoscopy 5 YEARS IF DESIRED us Historical Provider HEALTH MAINTENANCE Final Result from Last 3 Months or Most Recently Relevant to Health Maintenance Insurance MEDICARE PART A & B [facility] MEDICARE SUPPLEMENT MEDICARE PART A & B [facility] MEDICARE SUPPLEMENT MEDICARE PART A & B [facility] MEDICARE SUPPLEMENT MEDICARE PART A & B FOR [employer] MEDICARE SUPPLEMENT MEDICARE PART A & B [facility] MEDICARE SUPPLEMENT MEDICARE PART A & B [employer] MEDICARE SUPPLEMENT MEDICARE PART A & B [facility] MEDICARE SUPPLEMENT MEDICARE PART A & B [employer] MEDICARE SUPPLEMENT MEDICARE PART A & B [employer] MEDICARE SUPPLEMENT Care Teams Senior Sql Dba Relationship Specialty Start Date End Date Haider Varela MD [address] [place] [address] [email or web address] PCP - General 06/18/17 Haider Varela MD [address] [place] [address] [email or web address] Historical LMR Provider 04/02/17 Additional Source Comments The information contained in this document represents components of the legal health record. It is not the complete legal health record.[facility]
--- OUTSIDE RECORDS SUMMARY | 2025-02-17 06:42 | XMS_ITS | Encounter Summary ---
Author Organization [facility] Address [address] [place] [address] Phone Care Team Providers Care Developer Automatic Name Role Phone Haider Varela MD Unavailable [phone] Haider Varela MD Primary Care Provider [phone] Encounter Details Date Type Department Care Team (Late st Contact Info) Description 01/31/2025 Orders Only [facility] Internal Medicine [address] [place] [address] Provider, MD Tianna [address] [place] [address] Social History Tobacco Use Types Packs/Day Years [...] Description 02/21/2025 2:40 PM EDT Office Visit [facility] [address] [place] [address] Harriett Osuna PA-C [address] [place], [place] [phone] [email or web address] 05/05/2025 9:30 AM EST Office Visit [facility] [address] [place] [address] Haider Varela MD [address] [place] [address] documented as of this encounter Procedures Procedure Name Priority Date/Time Associated Diagnosis Comments OUTSIDE IMAGING Routine 01/30/2025 2:33 PM EDT OUTSIDE IMAGING Routine 01/30/2025 2:32 PM EDT OUTSIDE IMAGING Routine 01/30/2025 12:08 PM EDT OUTSIDE IMAGING Routine 01/30/2025 9:31 AM EDT documented in this encounter Results * Outside Imaging Report Only (01/30/2025 2:33 PM EDT) Historical Provider MD GARCIA XR CHEST Final Res ult * Outside Imaging Report Only (01/30/2025 2:32 PM EDT) us Historical Provider MD GARCIA XR CHEST Final Res ult * Outside Imaging Report Only (01/30/2025 12:08 PM EDT) us Historical Provider MD GARCIA XR CHEST Final Res ult * Outside Imaging Report Only (01/30/2025 9:31 AM EDT) us Historical Provider MD GARCIA XR CHEST Final Res ult documented in this encounter Visit Diagnoses Not on filedocumented in this encounter Additional Health Concerns Assessment Noted Time PHQ-9 Depression Total Score: 11 025 2:23 PM EDT PHQ-2 Depression Total Score: 3 01/19/20 25 2:23 PM EDT documented as of this encounter Care Teams Developer Automatic Relationship Specialty Start Date End Date Haider Varela MD [address] [place] [address] PCP - General 06/18/17 Haider Varela MD [address] [place] [address] Historical LMR Provider 04/02/17 documented as of this encounter Additional Source Comments The information contained in this document represents components of the legal health record. It is not the complete legal health record.[facility]
--- OUTSIDE RECORDS SUMMARY | 2025-02-17 06:42 | XMS_ITS | Patient Health Record ---
Author Organization [facility] Address [address] [place] [address] Care Team Providers Care Trap Setter Name Role Phone Haider Varela MD Primary Care Provider Robert Moser Jr Unavailable Allergies Allergen (clinical drug ingredient) Drug/Non Drug [...] Problem Status W/U Status Risk Notes Problem [id number] Colon cancer screening (Z12.11) Active confirmed Problem [id number] Family history of colon cancer (Z80.0) Active confirmed Plan Of Treatment Future Test Test Name Order Date COLONOSCOPY 02/16/2019 Insurance Providers Payer Name Payer Address Payer Phone Subscriber Number Group Number Insured Name Patient Relationship to Insured Coverage Start Date Coverage End Date MEDICARE OF [place] [address] [place], [place] [id number] KALLIE MEHTA Self - patient is the insured FOR LIFE [address] [place] [address] [id number] KALLIE MEHTA Self - patient is the insured Medical (General) History Medical History History ICD Code gastroesophageal reflux disease insomnia dry eyes elevated cholesterol memory issues depression Surgical History Surgery Date(Month/Year) appendectomy
--- OUTSIDE RECORDS SUMMARY | 2025-02-17 06:42 | XMS_ITS | Encounter Summary ---
Author Organization [facility] Address [address] [place] [address] Phone Care Team Providers Care Sales Development Manager Name Role Phone Haider Varela MD Unavailable [phone] Haider Varela MD Primary Care Provider [phone] Encounter Details Date Type Department Care Team (Late st Contact Info) Description 02/01/2025 Orders Only [facility] Internal Medicine [address] [place] [address] Provider, MD Tianna [address] [place] [address] Social History Tobacco Use Types Packs/Day [...] Description 02/21/2025 2:40 PM EDT Office Visit [facility] Internal Medicine [address] [place] [address] Harriett Osuna PA-C [address] [place], [place] [phone] [email or web address] 05/05/2025 9:30 AM EST Office Visit [facility] Internal Medicine [address] [place] [address] Haider Varela MD [address] [place] [address] documented as of this encounter Procedures Procedure Name Priority Date/Time Associated Diagnosis Comments OUTSIDE XR PELVIS REPORT ONLY Routine 01/30/2025 6:55 AM EDT documented in this encounter Results * Outside XR Pelvis Report Only (01/30/2025 6:55 AM EDT) us Historical Provider MD GARCIA XR PELVIS Final Res ult documented in this encounter Visit Diagnoses Not on filedocumented in this encounter Additional Health Concerns Assessment Noted Time PHQ-9 Depression Total Score: 11 025 2:23 PM EDT PHQ-2 Depression Total Score: 3 01/19/20 25 2:23 PM EDT documented as of this encounter Care Teams Sales Development Manager Relationship Specialty Start Date End Date Haider Varela MD [address] [place] [address] [email or web address] PCP - General 06/18/17 Haider Varela MD [address] [place] [address] [email or web address] Historical LMR Provider 04/02/17 documented as of this encounter Additional Source Comments The information contained in this document represents components of the legal health record. It is not the complete legal health record.[facility]
--- OUTSIDE RECORDS SUMMARY | 2025-04-11 20:00 | XMS_ITS | Clinical Summary ---
Author Organization Unknown Care Team Providers Care Drug Discovery Informatics Specialist Name Role Phone RADHA PIERRE, DARIELA Unavailable Unavailable COLEEN RN, CODI Unavailable Unavailab narda XAVIER PT, NANCI Unavailable Unavailsherita LUBIN TAX ADVISOR, MELY Unavailable Unavailable READING OT, DERECK Unavailable Unavailable Payers Payer Name Policy Type Policy Number Effective Date Expira tion Date MEDICARE.NGS.PD [id number] Problems Condition Name Condition Details Condition Category Status Onset Date Resolution Date Last Treatment Date Treating Clinician Comments UNSP INTRACAP FX RIGHT FEMUR, SUBS FOR CLOS FX W ROUTN HEAL Active 02-12 00:00: 00 NEUROCOGNITI VE DISORDER WITH LEWY BODIES Active 02-12 00:00: 00 PARKINSONISM , UNSPECIFIED Active 02-12 00:00: 00 ABRASION OF LOWER BACK AND PELVIS, SUBSEQUENT ENCOUNTER Active 02-12 00:00: 00 ABRASION OF RIGHT ELBOW, SUBSEQUENT ENCOUNTER Active 02-12 00:00: 00 PRESENCE OF RIGHT ARTIFICIAL HIP JOINT Active 02-12 00:00: 00 DIRECTOR INTERNAL CONTROL (CURRENT) USE OF ASPIRIN Active 02-12 00:00: 00 HISTORY OF FALLING Active 02-12 00:00: 00 Allergies, Adverse Reactions, Alerts Allergy Name Allergy Type Status Severity Reaction(s) Onset Date Inactive Date Treating Clinician Comments TYPHOID VACCINE Propensity to adverse reactions Active 2025-01 12:39:5 1 Vital Signs Vital Name Observation Time Observation Value Commen ts Temperature 2025-02-12 20:13:00.000 97.8 [degF] BMI (%) 2025-02-12 20:13:00.000 21 kg/m2 Height 2025-02-12 20:13:00.000 68 [in_us] Pulse 2025-02-12 20:13:00.000 74 /min Respirations 2025-02-12 20:13:00.000 16 /min Weight (lbs) 2025-02-12 20:13:00.000 143 [lb_av] Systolic Blood Pressure 2025-02-12 20:13:00.000 134 mm [Hg] Diastolic Blood Pressure 2025-02-12 20:13:00.000 70 mm [Hg] Plan of Treatment Planned Activity Planned Date Details Comments Future Scheduled Test RN TO OBSE RVE, ASSESS, EVALUATE, AND DEVELOP AN INDIVIDUALIZED PLAN OF CARE. AGENCY MAY ACCEPT ORDERS FROM CONSULTING PHYSICIANS RN TO OBSERVE AND ASSESS, ASSURANCE ASSOCIATE/NUCLEAR ENGINEERING TECHNICIAN TO OBSERVE FOR RISK FOR FALLS AND INSTRUCT IN FALL PREVENTION, HOME SAFETY, MEDICATION MANAGEMENT, INFECTION PREVENTION, AND NUTRITION MANAGEMENT. RN/ASSURANCE ASSOCIATE/NUCLEAR ENGINEERING TECHNICIAN NURSE MAY PERFORM O2 SATURATION LEVEL ON ADMISSION AND PRN FOR RESP STATUS CHANGES FOR RN TO ASSESS/ASSURANCE ASSOCIATE TO OBSERVE PATIENT, WITH NOTIFICATION TO THE PHYSICIAN IF SATURATION IS 90% IN THE ABSENCE OF MORE SPECIFIC PARAMETERS FROM THE PHYSICIAN. AGENCY MAY PERFORM A RESUMPTION OF CARE VISIT FOLLOWING ANY HOSPITAL ADMISSION. RN/ASSURANCE ASSOCIATE/NUCLEAR ENGINEERING TECHNICIAN TO MONITOR CO-MORBID CONDITIONS LISTED ON THE PLAN OF CARE AND ANY NEW CONDITIONS THAT PRESENT THEMSELVES DURING THIS EPISODE TO IDENTIFY CHANGES AND INTERVENE TO MINIMIZE COMPLICATIONS. [code = RN TO OBSERVE, ASSESS, EVALUATE, AND DEVELOP AN INDIVIDUALIZED PLAN OF CARE. AGENCY MAY ACCEPT ORDERS FROM CONSULTING PHYSICIANS RN TO OBSERVE AND ASSESS, ASSURANCE ASSOCIATE/NUCLEAR ENGINEERING TECHNICIAN TO OBSERVE FOR RISK FOR FALLS AND INSTRUCT IN FALL PREVENTION, HOME SAFETY, MEDICATION MANAGEMENT, INFECTION PREVENTION, AND NUTRITION MANAGEMENT. RN/ASSURANCE ASSOCIATE/NUCLEAR ENGINEERING TECHNICIAN NURSE MAY PERFORM O2 SATURATION LEVEL ON ADMISSION AND PRN FOR RESP STATUS CHANGES FOR RN TO ASSESS/ASSURANCE ASSOCIATE TO OBSERVE PATIENT, WITH NOTIFICATION TO THE PHYSICIAN IF SATURATION IS 90% IN THE ABSENCE OF MORE SPECIFIC PARAMETERS FROM THE PHYSICIAN. AGENCY MAY PERFORM A RESUMPTION OF CARE VISIT FOLLOWING ANY HOSPITAL ADMISSION. RN/ASSURANCE ASSOCIATE/NUCLEAR ENGINEERING TECHNICIAN TO MONITOR CO-MORBID CONDITIONS LISTED ON THE PLAN OF CARE AND ANY NEW CONDITIONS THAT PRESENT THEMSELVES DURING THIS EPISODE TO IDENTIFY CHANGES AND INTERVENE TO MINIMIZE COMPLICATIONS.] Future Scheduled Test MEDICATION MANAGEMENT; RN/ASSURANCE ASSOCIATE/NUCLEAR ENGINEERING TECHNICIAN TO REVIEW MEDICATIONS FOR INTERACTIONS, EFFECTIVENESS OF DRUG THERAPY, AND SIGNS/SYMPTOMS OF ADVERSE REACTIONS. MAY INSTRUCT AND REINFORCE MEDICATION TEACHING RELATED TO THE USE OF MEDICATIONS, DOSAGE, FREQUENCY, PURPOSE, SIDE EFFECTS, AND TO REPORT COMPLICATIONS. [code = MEDICATION MANAGEMENT; RN/ASSURANCE ASSOCIATE/NUCLEAR ENGINEERING TECHNICIAN TO REVIEW MEDICATIONS FOR INTERACTIONS, EFFECTIVENESS OF DRUG THERAPY, AND SIGNS/SYMPTOMS OF ADVERSE REACTIONS. MAY INSTRUCT AND REINFORCE MEDICATION TEACHING RELATED TO THE USE OF MEDICATIONS, DOSAGE, FREQUENCY, PURPOSE, SIDE EFFECTS, AND TO REPORT COMPLICATIONS.] Future Scheduled Test RISK FOR H OSPITALIZATION; RN TO ASSESS/TEACH, NUCLEAR ENGINEERING TECHNICIAN/ASSURANCE ASSOCIATE TO OBSERVE/TEACH PATIENT/CAREGIVER ON RISK FOR HOSPITALIZATION/EMERGENCY ROOM VISITS, TEACH SIGNS AND SYMPTOMS THAT PUT PATIENT AT RISK, WHEN TO NOTIFY NURSE/PHYSICIAN OF COMPLICATIONS/DECLINE, AND WHEN TO CALL 911. [code = RISK FOR HOSPITALIZATION; RN TO ASSESS/TEACH, NUCLEAR ENGINEERING TECHNICIAN/ASSURANCE ASSOCIATE TO OBSERVE/TEACH PATIENT/CAREGIVER ON RISK FOR HOSPITALIZATION/EMERGENCY ROOM VISITS, TEACH SIGNS AND SYMPTOMS THAT PUT PATIENT AT RISK, WHEN TO NOTIFY NURSE/PHYSICIAN OF COMPLICATIONS/DECLINE, AND WHEN TO CALL 911.] Future Scheduled Test RN TO ASSE SS/TEACH, ASSURANCE ASSOCIATE/NUCLEAR ENGINEERING TECHNICIAN TO OBSERVE/TEACH SURGICAL AFTERCARE MANAGEMENT TO AVOID HOSPITALIZATION. [code = RN TO ASSESS/TEACH, ASSURANCE ASSOCIATE/NUCLEAR ENGINEERING TECHNICIAN TO OBSERVE/TEACH SURGICAL AFTERCARE MANAGEMENT TO AVOID HOSPITALIZATION.] Future Scheduled Test PAIN MANAG EMENT; RN TO ASSESS AND TEACH, NUCLEAR ENGINEERING TECHNICIAN/ASSURANCE ASSOCIATE TO OBSERVE AND TEACH AND PROVIDE EDUCATION ON PAIN MANAGEMENT TECHNIQUES. [code = PAIN MANAGEMENT; RN TO ASSESS AND TEACH, NUCLEAR ENGINEERING TECHNICIAN/ASSURANCE ASSOCIATE TO OBSERVE AND TEACH AND PROVIDE EDUCATION ON PAIN MANAGEMENT TECHNIQUES.] Future Scheduled Test FALL REDUC TION MANAGEMENT; RN TO ASSESS AND OBSERVE, ASSURANCE ASSOCIATE/NUCLEAR ENGINEERING TECHNICIAN TO OBSERVE FALL RISK FACTORS AND EDUCATE PATIENT/CAREGIVER ON STRATEGIES TO MINIMIZE THE RISK OF FALLING. [code = FALL REDUCTION MANAGEMENT; RN TO ASSESS AND OBSERVE, ASSURANCE ASSOCIATE/NUCLEAR ENGINEERING TECHNICIAN TO OBSERVE FALL RISK FACTORS AND EDUCATE PATIENT/CAREGIVER ON STRATEGIES TO MINIMIZE THE RISK OF FALLING.] Future Scheduled Test RN/ASSURANCE ASSOCIATE/NUCLEAR ENGINEERING TECHNICIAN TO PERFORM/TEACH INCISION CARE TO RIGHT HIP AREA: RAMON, BRYAN TO BE REMOVED BY SURGEON 02/17/25 [code = RN/ASSURANCE ASSOCIATE/NUCLEAR ENGINEERING TECHNICIAN TO PERFORM/TEACH INCISION CARE TO RIGHT HIP AREA: RAMON, BRYAN TO BE REMOVED BY SURGEON 02/17/25] Goal Patient Goal - TO GOLF Goal Provider Goal - A PLAN OF CARE WILL BE ESTABLISHED THAT MEETS THE PATIENT S NEEDS. PATIENT WILL DEMONSTRATE OXYGEN SATURATION WITHIN NORMAL LIMITS OR PATIENT S OPTIMAL LEVEL ESTABLISHED BY THE PHYSICIAN THROUGHOUT CARE. CHANGES TO CO-MORBID CONDITIONS AND ANY NEW CONDITIONS WILL BE IDENTIFIED AND REPORTED TO THE PHYSICIAN. Goal Provider Goal - PATIENT/CAREGIVER TO VERBALIZE, AND CONSISTENTLY DEMONSTRATE EFFECTIVE, SAFE MANAGEMENT OF MEDICATION INCLUDING KNOWLEDGE OF EFFECTIVENESS, POTENTIAL SIDE EFFECTS AND DRUG REACTIONS AND WHEN TO CONTACT THE APPROPRIATE CARE PROVIDER. PATIENT/CAREGIVER WILL BE ABLE TO VERBALIZE UNDERSTANDING OF MEDICATION REGIMEN AND ACCURATELY TAKE MEDICATIONS PRESCRIBED WITHOUT ADVERSE EFFECTS BY 04/12/25 Goal Provider Goal - PATIENT/CAREGIVER WILL VERBALIZE UNDERSTANDING OF SIGNS AND SYMPTOMS THAT PUT THE PATIENT AT RISK FOR HOSPITALIZATION /EMERGENCY ROOM VISITS, WHEN TO NOTIFY NURSE/PHYSICIAN OF COMPLICATIONS/DECLINE AND WHEN TO CALL 911. Goal Provider Goal - PATIENT/CAREGIVER WILL VERBALIZE/DEMONSTRATE POSTOPERATIVE CARE TO MINIMIZE COMPLICATION AND AVOID HOSPITALIZATIONS BY THE END OF THE EPISODE. Goal Provider Goal - PATIENT / CAREGIVER WILL VERBALIZE / DEMONSTRATE UNDERSTANDING OF PAIN CONTROL MEASURES BY 04/12/25 Goal Provider Goal - PATIENT/CAREGIVER WILL VERBALIZE/DEMONSTRATE UNDERSTANDING OF FALL RISK FACTORS AND IMPLEMENT STRATEGIES TO MINIMIZE FALL RISK. PATIENT/CAREGIVER WILL VERBALIZE/DEMONSTRATE AN ABILITY TO ADHERE TO FALL REDUCTION SELF-MANAGEMENT AND LIFE-STYLE CHANGES BY 04/12/25 Goal Provider Goal - PATIENT / CAREGIVER WILL VERBALIZE / DEMONSTRATE ABILITY TO PERFORM WOUND CARE. WOUND STATUS WILL IMPROVE EVIDENCED BY A DECREASE IN SIZE, DRAINAGE, ABSENCE OF INFECTION, AND DECREASED PAIN BY 04/12/25 Encounters Start Date/Time End Date/Time Encounter Type Admission Type Attending [facility] Care [facility] Care Department Encounter ID Discharge Date Discharge Status Discharge Condition Discharge Reason Percent Goals Met 2025-02-12 00:00:00 2025-04-12 00:00:00 Outpatient NEW ADMISSION BUTCHJOSE ROBERTO CODI [facility] [id number] 80.00
== END 2025-02-17 06:40 | disposition home or self-care (01) ==
LOC: HO.HOSX 06:39
PROVIDERS: Visit Provider Physician Assistant
DX: Z47.1 Aftercare following joint replacement surgery (principal); Z96.641 Presence of right artificial hip joint
CPT/HCPCS: 73502; 99212

== ENCOUNTER 2025-02-17 10:17 | Outpatient (AMB) | payer MEDICARE, OTHER, SELFPAY ==
--- NOTE | 2025-02-17 10:27 | MHC.OFFVIS ---
Intake Visit Reasons: PO- Rt hip hemiathroplasty 01/31/25 NE Intake Note: Darian 79 yr old male presents today for his post op visit for his Right hip hemiarthroplasty DOS 01/31/[address] Perez. Xrays updated in office. States he fell 01/30/25 and was seen in ED. Surgery was done. Currently states he is a little nervious to have his fabian removed in office. Stats pain is curremtly a 5/10. Allergies typhoid injection Allergy (Unknown, Uncoded 02/17/25 10:34) Unknown HPI HPI PO- Rt hip hemiathroplasty 01/31/25 NE: Details: 79-year-old gentleman returns to the office today for a 2 week postop right hip hemiarthroplasty on 01/31/[address] Perez. The patient is ambulating with a walker and has been discharged home from rehab. He is doing home rehab with [facility]. FORMERLY [facility] Medical History Dementia with Lewy bodies Social History Household Members: Spouse Housing: House Are you a primary youth career specialist to a significant other at home: No Do you presently have visiting nurse or other home services: No Comment: 1-1 sitter Patient Tobacco Use Status: Never used Tobacco Second Hand Smoke Exposure: No Advance Directives Date on File: 08/09/24 service: No Review of Systems Const All systems reviewed & are unremarkable except as noted in HPI and below Physical Exam Extrem Other: Right hip incision is clean dry and intact, no surrounding erythema or swelling. No pain with hip flexion or range of motion. Calf supple and nontender neurovascularly intact. Results Reviewed Results Reviewed: X-rays of the right hip obtained in the office today reviewed by me show intact hip prosthesis. Assessment & Plan Assessment & Plan (1) Status post hemiarthroplasty of right hip: Code(s): Z96.641 - Presence of right artificial hip joint Category: Surgical Plan: Lackey removed today Steri-Strips applied. The patient will continue working with physical therapy at home and when he is ready to transition to outpatient we can submit a referral. Patient will be weight-bearing as tolerated with a walker, posterior precautions in place. He will continue with strength and gait training. He will see us back in 6 weeks with x-rays, sooner if needed. Orders: Orders XR hip RT min 2V Today M25.551 - Pain in right hip Coding Level of Care Code Global (97687) Diagnoses Status post hemiarthroplasty of right hip Z96.641
== END 2025-02-17 10:51 | disposition home or self-care (01) ==
LOC: HO.HOS 10:18
PROVIDERS: PCP Internal Medicine; Visit Provider Physician Assistant
DX: Z96.641 Presence of right artificial hip joint (principal)
CPT/HCPCS: 99024

== ENCOUNTER → 2025-02-17 10:20 | Outpatient (BNV) | payer MEDICARE, OTHER, SELFPAY | PROVIDERS: Visit Provider Radiology Diagnostic Radiology | DX: Z96.641 Presence of right artificial hip joint (principal) | CPT/HCPCS: 73502 ==

== ENCOUNTER 2025-04-03 09:55 | Outpatient (AMB) | payer MEDICARE, OTHER, SELFPAY ==
--- NOTE | 2025-04-03 10:07 | A.OFFVIS_ITS ---
Intake Visit Reasons: PO-Rt hip hemiathroplasty 01/31/25 NE Intake Note: Darian 79 year old male who presents today for his post op visit status post right hip hemiarthroplasty, performed by Dr. Perez on DOS 01/31/25. Patient reports he is doing well, he denies any pain and does not have any concerns today. Allergies typhoid injection Allergy (Unknown, Uncoded 04/03/25 10:09) Unknown Medication List - Last Reconciled 04/03/25 by Elgin Thomas PA-C carbidopa-levodopa 25-100 mg 1 tab PO BID donepezil 10 mg PO DAILY melatonin 10 mg PO BEDTIME PRN memantine 10 mg PO BID mirtazapine 15 mg PO BEDTIME quetiapine 25 mg PO BEDTIME sertraline 25 mg PO DAILY HPI HPI PO-Rt hip hemiathroplasty 01/31/25 NE: Details: 79-year-old gentleman returns to the office today 6 weeks status post right hip hemiarthroplasty on 01/31/[address] Perez. The patient is no longer using a cane or a walker for ambulation. He has completed physical therapy and continues to work on a home exercise program. He has no concerns today. [facility]LY [facility] Medical History Dementia with Lewy bodies Social History Household Members: Spouse Housing: House Are you a primary rn progressive care unit to a significant other at home: No Do you presently have visiting nurse or other home services: No Comment: 1-1 sitter Patient Tobacco Use Status: Never used Tobacco Second Hand Smoke Exposure: No Advance Directives Date on File: 08/09/24 service: No Review of Systems Const All systems reviewed & are unremarkable except as noted in HPI and below Physical Exam Extrem Other: Right hip incision well healed, no surrounding erythema or swelling. No pain with hip flexion or range of motion. Calf supple and nontender neurovascularly intact. Results Reviewed Results Reviewed: X-rays of the right hip obtained in the office today reviewed by me show intact hip prosthesis. Assessment & Plan Assessment & Plan (1) Status post hemiarthroplasty of right hip: Code(s): Z96.641 - Presence of right artificial hip joint Category: Surgical Plan: Patient continues to do well status post right hip hemiarthroplasty. He will continue with activities as tolerated and maintain his strengthening exercises. If symptoms arise he will contact our office otherwise follow up as needed. Orders: Orders XR hip RT min 2V Today M25.551 - Pain in right hip Coding Level of Care Code Global (53197) Diagnoses Status post hemiarthroplasty of right hip Z96.641
== END 2025-04-03 10:36 | disposition home or self-care (01) ==
LOC: HO.HOS 09:56
PROVIDERS: Visit Provider Physician Assistant
DX: Z96.641 Presence of right artificial hip joint (principal)
CPT/HCPCS: 99024

== ENCOUNTER → 2025-04-03 09:58 | Outpatient (BNV) | payer MEDICARE, OTHER, SELFPAY | PROVIDERS: Visit Provider Radiology Diagnostic Ultrasound | DX: M25.551 Pain in right hip (principal); Z96.641 Presence of right artificial hip joint | CPT/HCPCS: 73502 ==

== ENCOUNTER 2025-04-03 12:04 | Outpatient (REF) | payer MEDICARE, OTHER, SELFPAY ==
--- NOTE | ~2025-04-03 | XR_ITS ---
EXAMINATION: XR HIP, RIGHT CLINICAL INFORMATION: M25.551 - Pain in right hip COMPARISON: X-ray 02/17/2025 TECHNIQUE: Two views of the right hip. FINDINGS: Redemonstrated right hip arthroplasty in expected position alignment. No acute periprosthetic fractures. No suspicious perihardware lucency. Left hip joint space is maintained. No visible acute fracture or dislocation. Symphysis pubis is intact. Vascular calcifications. XR/XR hip RT min 2V IMPRESSION: Right hip arthroplasty in stable position and alignment. No radiographic findings of hardware complications. Electronically signed by: Froylan Acuna MD 04/03/2025 10:12 AM EDT
--- OUTSIDE RECORDS SUMMARY | 2025-04-04 15:35 | XMS_ITS | Patient Health Record ---
Author Organization [facility] Address [address] [place] [id number] Care Team Providers Care Groundman Name Role Phone Haider Varela MD Primary Care Provider Robert Moser Jr Unavailable [phone] Allergies Allergen (clinical drug ingredient) Drug/Non [...] MG 1 tablet Oral ly Once a day; Duration: 30 day(s) Active Magnesium 250 MG 1 tablet with a meal Orally Once a day; Duration: 30 day(s) Active traZODone HCl 100 MG 1 tablet at bedtime Orally Once a day; Duration: 30 day(s) Active Omeprazole 40 MG 1 capsule Orally Onc e a day; Duration: 30 day(s) Active Citalopram Hydrobromide 20 MG 1 tablet Orally Once a day; Duration: 30 day(s) Active Donepezil HCl 10 MG [...] Problem Status W/U Status Risk Notes Problem Colon cancer screening (953457333) Colon cancer screening (Z12.11) Active confirmed Problem Family History of Cancer of Colon (Situation) (210152274) Family history of colon cancer (Z80.0) Active confirmed Plan Of Treatment Future Test Test Name Order Date COLONOSCOPY 02/16/2019 Insurance Providers Payer Name Payer Address Payer Phone Subscriber Number Group Number Insured Name Patient Relationship to Insured Coverage Start Date Coverage End Date MEDICARE OF [place] [address] [place] [address] [phone] [id number] KALLIE MEHTA Self - patient is the insured FOR LIFE [address] [place] [address] [id number] KALLIE MEHTA Self - patient is the insured Medical (General) History Medical History History ICD Code gastroesophageal reflux disease insomnia dry eyes elevated cholesterol memory issues depression Surgical History Surgery Date(Month/Year) appendectomy
--- OUTSIDE RECORDS SUMMARY | 2025-04-04 15:35 | XMS_ITS | Clinical Summary ---
Author Organization [facility] Address [address] [place] [address] Phone Care Team Providers Care Arborer Name Role Phone Haider Varela MD Unavailable Haider Varela MD Primary Care Provider [phone] Allergies Active Allergy Reactions Criticality Noted Date [...] TABLET DAILY 90 tablet 3 4 Active melatonin 5 mg Tab Take 10 [...] Active Problems Problem Noted Date Diagnosed Date Hip swelling, right 02/21/2025 Assessment & Plan (02/21/2025 3:07 PM EDT): He is status post right hip hemiarthroplasty following a fall resulting in a hip fracture, done at [facility]. He reports significant improvement of his overall status including his ambulation and pain, only using Tylenol for pain management. However, they noticed last night there was swelling around his right buttocks and hip region. They did have a follow-up with orthopedics last week where his fabian were removed. On exam there is significant swelling without pitting edema along the right hip and right buttocks without any tenderness to palpation, no overlying erythema or warmth. Case was discussed with Dr. Aparicio, will obtain a CBC and CRP to assess for any underlying inflammation or infection. Will also have our nursing team reach out to [facility] to see if any additional follow- up, imaging, or lab work is indicated. Other than the swelling, he is overall doing very well, he has OT and nursing services at home and PT sent versus are pending. He is ambulating well with minimal pain. They are interested in a handicap placard, I agree that this would be beneficial and advised that they should drop off the forms in the office so I can sign it for a permanent handicap placard. History of hip fracture 02/21/2025 Overview (02/21/2025): Right, status post right hip hemiarthroplasty on 01/31/2025 at [facility] AAA (abdominal aortic aneurysm) 11/15/2018 Primary insomnia [...] hydration, balanced diet, and activity as able. Resolved Problems Problem Noted Date Diagnosed Date Resolved Date History of right hip replacement 02/21/2025 02/21/2025 Encounters Date Type Department Care Team Description 02/22/2025 Telephone [facility] Internal [facility] [address] [facility] [place] [address] Haider Varela MD Results 02/21/2025 3:05 PM EDT - 02/21/2025 11:59 PM EDT Hospital Encounter [facility] [address] [facility] [place] [address] Harriett Osuna PA-C Discharge Disposition: Home or Self Care 02/21/2025 2:40 PM EDT Office Visit [facility] Internal [facility] [address] [place] [place] [address] Harriett Osuna PA-C Hip swelling, right (Primary Dx); History of hip fracture 02/21/2025 Telephone [facility] Internal [facility] [address] [facility] [place] [address] So Tejeda RN hip swelling 02/08/2025 Telephone [facility] [address] [place] [address] Haider Varela MD TCM Visit 02/01/2025 Orders Only [facility] Internal Medicine [address] [facility] [place] [address] Tianna Holloway MD 01/31/2025 Orders Only [facility] Internal Medicine [address] [place] [address] Tianna Holloway MD 01/24/2025 Telephone [facility] Internal [facility] [address] [facility] [place] [address] Haider Varela MD Results 01/18/2025 3:09 PM EDT - 01/18/2025 11:59 PM EDT Hospital Encounter [facility] [address] [facility] [place] [address] Haider Varela MD Discharge Disposition: Home or Self Care 01/18/2025 2:30 PM EDT Office Visit [facility] [address] [place], [place] [address] Haider Varela MD Alzheimer's disease (Primary Dx); Major depressive disorder with current active episode, unspecified depression episode severity, unspecified whether recurrent; Pure hypercholesterolemia from Last 3 Months Immunizations Immunization Administration Dates Next Due COVID-19 (Pre) Moderna Vaccine, mRNA, PF 10/12/2021,04/09/2021,09/28/2020,08/29 COVID-19 (Pre-04/06) Pfizer Vaccine, Bivalent 12+ 02/14/2023 DTaP, unspecified formulation 09/17/2010 INFLUENZA, SPLIT VIRUS, TRIVALENT PF 02/02/2020 INFLUENZA, SPLIT VIRUS, TRIV ALENT W/ PRESERVATIVE IM 02/13/2019,02/13/2017,01/30/2017,02/22 Influenza High-Dose Quadriva lent Preservative Free IM 02/14/2023,02/15/2022,01/31/2021 Influenza High-Dose Trivalen t Preservative Free IM 02/18/2018,01/30/2017,02/14/2016 Influenza Trivalent Adjuvant ed Preservative free IM 02/17/2024,02/08/2019 Influenza, Unspecified Formulation 02/13,02/10/2019,02/14/2016,02/22,02/22/2014,03/15/2012,03/15/2011 ,03/15/2010,06/15/2009,03/15/2009,1106/2007,03/15/2007,05/30/2004 Pneumococcal conjugate PCV13 07/06/2019,09/25/19 17 Pneumococcal polysaccharide [...] Used Date Smoking Tobacco: Former Cigarettes 1 62.8 S tarted: 1962 Smokeless Tobacco: Never Alcohol [...] Sign Reading Time Taken Comments Blood Pressure 110/72 02/21/2025 2:35 PM EDT Pulse 79 02/21/2025 2:35 PM EDT Temperature 36.3 C (97.3 F) 02/21/2025 2:35 PM EDT Respiratory Rate 12 02/21/2025 2:35 PM EDT Oxygen Saturation 93% 02/21/2025 2:35 PM EDT Inhaled Oxygen Concentration - - Weight 64.2 kg (141 lb 9.6 oz) 02/21/2025 2:35 P M EDT Height 170 cm (5' 6.93 ) 02/21/2025 2:35 PM EDT Body Mass Index 22.22 02/21/2025 2:35 PM EDT Plan of Treatment Upcoming Encounters Date Type Department Care Team (Late st Contact Info) Description 05/05/2025 9:30 AM EST Office Visit [facility] [address] [place] [address] Haider Varela MD [address] [place] [address] [email or web address] Health Maintenance Due Date Last Done Comments [...] STATUS SCREENING (Once After 26 Yrs) Completed 02/21/2025 HEPATITIS A VACCINES Aged Out No long [...] Procedure Name Priority Date/Time Associated Diagnosis Comments CBC AND DIFFERENTIAL Routine 02/21/2025 3:05 PM EDT Hip swelling, right C-REACTIVE PROTEIN Routine 02/21/2025 3: 05 PM EDT Hip swelling, right OUTSIDE IMAGING Routine 01/30/2025 2:33 PM EDT [...] Recently Relevant to Health Maintenance Results * (ABNORMAL) CBC and differential (02/21/2025 3:05 PM EDT) Only the most recent of2 resultswithin the time period is included. WBC 11.00 4.00 - 11.00 K/uL [facility] RBC 4.57 4.50 - 5.90 M/uL [facility] HGB 14.0 13.5 - 17.5 g/dL [facility] HCT 44.3 41.0 - 53.0 % [facility] PLT 304 150 - 450 K/uL [facility] MCV 96.9 80.0 - 100.0 fL [facility] MCH 30.6 27.0 - 31.0 pg [facility] MCHC 31.6(L) 32.0 - 36.0 g/dL [facility] RDW 14.0 11.5 - 14.5 % [facility] MPV 12.6(H) 8.4 - 12.0 fL [facility] NRBC 0.00 0.00 /100 WBCs [facility] ABSOLUTE NRBC 0.00 0.00 K/uL [facility] DIFF METHOD Auto [facility] NEUTS 63.4 48.0 - 76.0 % [facility] LYMPHS 25.8 18.0 - 41.0 % [facility] MONOS 9.5 4.0 - 11.0 % [facility] EOS 0.0 0.0 - 5.0 % [facility] BASOS 0.8 0.0 - 1.5 % [facility] Granulocytes, immature (%) 0.5 0.0 - 0.9 % [facility] ABSOLUTE NEUTS 6.97 1.92 - 7.60 K/uL [facility] ABSOLUTE LYMPHS 2.84 0.72 - 4.10 K/uL [facility] ABSOLUTE MONOS 1.04 0.16 - 1.10 K/uL [facility] ABSOLUTE EOS 0.00 0.00 - 0.50 K/uL [facility] ABSOLUTE BASOS 0.09 0.00 - 0.15 K/uL [facility] Granulocytes, immature 0.06 0.00 - 0.09 K/uL [facility] Blood 02/21/2025 3:05 PM EDT 02/21/2025 3:06 PM EDT Result [facility] PA-C LAB BLOOD ORDERABLES Final R esult Performing Organization Address City/[facility]/ZIP Co de Phone Number [address] [address] * (ABNORMAL) C-Reactive Protein (02/21/2025 3:05 PM EDT) C REACTIVE PROTEIN 9.7(H) 0.0 - 4.0 mg/L [facility] Blood 02/21/2025 3:05 PM EDT 02/21/2025 3:06 PM EDT Result [facility] PA-C LAB BLOOD ORDERABLES Final R esult Performing Organization Address City/[facility]/ZIP Co de Phone Number [address] [address] * Outside Imaging Report Only (01/30/2025 2:33 PM EDT) Historical Provider IMG XR CHEST [...] Only (01/30/2025 6:55 AM EDT) Historical Provider IMSrinivasan XR PELVIS Final Res ult * (ABNORMAL) Comprehensive metabolic panel (01/18/2025 3:11 PM EDT) SODIUM 141 133 - 146 mmol/L [facility] POTASSIUM 4.1 3.3 - 5.1 mmol/L [facility] CHLORIDE 102 96 - 108 mmol/L [facility] CO2 26 21 - 35 mmol/L [facility] BUN 18 6 - 19 mg/dL [facility] CREATININE 1.00 0.5 - 1.5 mg/dL [facility] GLUCOSE 138(H) 70 - 99 mg/dL [facility] ALBUMIN 4.1 3.9 - 4.8 g/dL [facility] TOTAL PROTEIN 7.1 6.5 - 8.0 g/dL [facility] CALCIUM 9.7 8.4 - 10.3 mg/dL [facility] ALKALINE PHOSPHATASE 75 39 - 117 U/L [facility] TOTAL BILIRUBIN 0.7 0.0 - 1.2 mg/dL [facility] AST 19 0 - 37 U/L [facility] ALT 6 0 - 40 U/L [facility] GLOBULIN 3.0 1 - 4.8 g/dL [facility] EGFR 77 >59 mL/min/1.7 3m2 [facility] Comment:Estimated glomerular filtration rate calculated using the CKD-EPI refit equation. ANION GAP 17 10 - 20 mmol/L [facility] Blood 01/18/2025 3:11 PM EDT 01/18/2025 3:14 PM EDT us Haider Varela MD LAB BLOOD ORDERABLES Final Re sult [facility] [address] [place] [address] * TSH (01/18/2025 3:11 PM EDT) TSH 1.00 0.27 - 4.20 uIU/mL [facility] Blood 01/18/2025 3:11 PM EDT 01/18/2025 3:14 PM EDT Haider Varela MD LAB BLOOD ORDERABLES Final Re sult Performing Organization Address City/[facility]/ZIP Co de Phone Number [address] [address] * Hemoglobin A1c (01/18/2025 3:11 PM EDT) HEMOGLOBIN A1C 5.7 4.3 - 5.8 % [facility] Blood 01/18/2025 3:11 PM EDT 01/18/2025 3:14 PM EDT Haider Varela MD LAB BLOOD ORDERABLES Final Re sult Performing Organization Address [facility]/ZIP Co de Phone Number [address] [address] * Vitamin B12 (01/18/2025 3:11 PM EDT) VITAMIN B12 393 232 - 1,245 pg/mL [facility] Blood 01/18/2025 3:11 PM EDT 01/18/2025 3:14 PM EDT Haider Varela MD LAB BLOOD ORDERABLES Final Re sult Performing Organization Address [facility] Co de Phone Number [address] [address] * (ABNORMAL) Lipid panel (02/05/2024 8:41 AM EDT) HDL 53 mg/dL [facility] Comment: Interpretation <40 mg/dL: Low HDL cholesterol (major risk factor for CHD) Greater than or equal to 60 mg/dL: High HDL cholesterol ( negative risk factor for CHD) HDL - cholesterol is affected by a number of factors, e.g. smoking, excerise, hormones, sex and age. CHOLESTEROL 128 0 - 240 mg/dL [facility] TRIGLYCERIDES 72 30 - 160 mg/dL [facility] LDL 61 50 - 129 mg/dL [facility] Comment: LDL levels in terms of risk for coronary heart disease: <100 mg/dL: Optimal 100-129 mg/dL: Near or above optimal 130-159 mg/dL: Borderline high 160-189 mg/dL: High >190 mg/dL: Very High CARDIAC RISK RATIO 2.4(L) 3.4 - 5.0 C [facility] Blood 02/05/2024 8:41 AM EDT 02/05/2024 8:44 AM EDT Haider Varela MD LAB BLOOD ORDERABLES Final Re sult Performing Organization Address [facility] Co de Phone Number [address] [address] * Hepatitis C antibody, qualitative (07/14/2023 8:48 AM EST) HCV NON-REACTIV E NON-REACTI VE [facility] Blood 07/14/2023 8:48 AM EST 07/14/2023 8:51 AM EST Haider Varela MD LAB BLOOD ORDERABLES Final Re sult Performing Organization Address [facility] Co de Phone Number [address] [address] * COLONOSCOPY FOR RESULT ENTRY ONLY (05/06/2019) Colonoscopy 5 YEARS IF DESIRED Historical Provider HEALTH MAINTENANCE Final Result from Last 3 Months or Most Recently Relevant to Health Maintenance Insurance MEDICARE PART A & B FOR LIFE MEDICARE SUPPLEMENT MEDICARE PART A & B [facility] FOR LIFE MEDICARE SUPPLEMENT MEDICARE PART A & B [facility] FOR LIFE MEDICARE SUPPLEMENT MEDICARE PART A & B [facility] FOR LIFE MEDICARE SUPPLEMENT MEDICARE PART A & B [facility] FOR LIFE MEDICARE SUPPLEMENT MEDICARE PART A & B [facility] FOR LIFE MEDICARE SUPPLEMENT MEDICARE PART A & B FOR LIFE MEDICARE SUPPLEMENT [facility] Address: [address] [address] MEDICARE PART A & B [facility] FOR LIFE MEDICARE SUPPLEMENT [facility] Address: [address] [address] MEDICARE PART A & B FOR LIFE MEDICARE SUPPLEMENT Care Teams Arborer Relationship Specialty Start Date End Date Haider Varela MD [address] [place] [address] [email or web address] PCP - General 06/18/17 Haider Varela MD [address] [place] [address] [email or web address] Historical LMR Provider 04/02/17 Additional Source Comments The information contained in this document represents components of the legal health record. It is not the complete legal health record.[facility]
--- OUTSIDE RECORDS SUMMARY | 2025-04-04 15:35 | XMS_ITS | Encounter Summary ---
Author Organization [facility] Address [address] [place] [address] Phone Care Team Providers Care Millinery Worker Name Role Phone Haider Varela MD Unavailable [phone] Haider Varela MD Primary Care Provider [phone] Encounter Details Date Type Department Care Team (Late Contact Info) Description 03/21/2022 Procedure Pass [facility], Ct Scan - [address] [address] Social History Tobacco Use Types Packs/Day Years [...] Department Care Team (Late Contact Info) Description 05/05/2025 9:30 AM EST Office Visit [facility] Internal Medicine [address] [place] [address] Haider Varela MD [address] [place] [address] documented as of this encounter Visit Diagnoses Not on filedocumented in this encounter Additional Health Concerns Assessment Noted Time PHQ-2 Depression Total Score: 0 09/21/19 10:51 AM EDT documented as of this encounter Care Teams Millinery Worker Relationship Specialty Start Date End Date Haider Varela MD [address] [place] [address] PCP - General 06/18/17 Haider Varela MD [address] [place] [address] [email or web address] Historical LMR Provider 04/02/17 documented as of this encounter Additional Source Comments The information contained in this document represents components of the legal health record. It is not the complete legal health record.[facility]
== END 2025-04-03 12:05 | disposition home or self-care (01) ==
LOC: HO.HOSX 12:04
PROVIDERS: Visit Provider Physician Assistant
DX: Z47.1 Aftercare following joint replacement surgery (principal); Z96.641 Presence of right artificial hip joint
CPT/HCPCS: 73502; 99212